=== PATIENT | female | born 1935 | race Caucasian/White ===

== ENCOUNTER 2017-10-10 12:56 | Day surgery (SDC) | payer MEDICARE, BC ==
[2017-10-10 13:30] VITALS: BP 148/77; PULSE 74; RESP 14; TEMP 97; O2SAT 95
[2017-10-10] MEDS ORDERED: LIDOCAINE HCL 1% 20 ML VIAL ONE (13:40)
[2017-10-10 14:25] VITALS: BP 174/91; PULSE 69; RESP 18; TEMP 97.8; O2SAT 97
[2017-10-10 14:40] VITALS: BP 156/93; PULSE 68; RESP 18; O2SAT 99
--- NOTE | 2017-10-10 14:56 | RADRPT ---
EXAM DATE/TIME: 10/10/2017 13:24 [place] COMPARISON: No previous studies available for comparison. EXTERNAL COMPARISON: [facility], PET CT Tumor, Sep 14 2017 INDICATIONS : Enlarged lymph node left supraclavicular. MEDICAL HISTORY : Ovarian cancer. PE. Hypertension. Hyperlipidemia. Neuropathy. Diverticulosis. SURGICAL HISTORY : Tonsillectomy. Knee surgery. Cataract. Infusa A Port placement. ENCOUNTER: Initial ACUITY: 1 month PAIN SCORE: 0/10 LOCATION: Left neck ORGAN: Left lymph node SPECIMENS: Four core specimen(s) submitted for pathologic evaluation. DEVICE: 18 gauge Temno needle Post procedure scanning reveals no hematoma or other complication. The possibility does exist that the tissue obtained will be non-diagnostic. If the sample is non-cammy gnostic a repeat biopsy or surgical biopsy may need to be performed. TECHNIQUE: 1. Ultrasound guidance for needle biopsy. 2. Needle biopsy. The risks, benefits and alternatives to the procedure were explained and verbal and written consent w as obtained. The site was prepped in sterile fashion. Full sterile technique was used, including ca p, mask, sterile gloves and gown and a large sterile sheet. Hand hygiene and 2% chlorhexidine and/or betadine/alcohol prep was utilized per protocol for cutaneous antisepsis. The skin and subcutaneous tissues were infiltrated with local anesthetic solution. Sterile gel and sterile probe cover were u tilized for ultrasound guidance. With the patient on the ultrasound table, images were obtained. A needle was advanced into the identified target and the number of specimens as above obtained and cardona bmitted for pathologic evaluation. The patient tolerated the procedure well and left the ultrasound suite in stable condition. CONCLUSION: Uncomplicated ultrasound guided needle biopsy. Dante Vail MD on October 10, 2017 at 14:53 Board Certified Radiologist. This report was verified electronically.
== END 2017-10-10 14:57 | disposition home or self-care (01) ==
LOC: HRAD 12:56
PROVIDERS: ATTEND Obstetrics & Gynecology Gynecologic Oncology
DX: R59.0 Localized enlarged lymph nodes (principal); C56.9 Malignant neoplasm of unspecified ovary; I10 Essential (primary) hypertension; E78.5 Hyperlipidemia, unspecified
CPT/HCPCS: 38505; 76942; 88305; 88341; 88342

== ENCOUNTER 2018-09-17 13:42 | Inpatient (IN) ==
[2018-09-17] MEDS ORDERED: Sod Chloride 0.9% Inj 1,000 ML IV.SIG ONE (14:11)
--- NOTE | 2018-09-17 14:15 | ED ---
HPI General Chief Complaint: Abdominal Pain Stated Complaint: vomitting/abd pain/headache Time Seen by Provider: 09/17/18 14:11 Source: patient and family Mode of arrival: ambulatory Limitations: no limitations History of Present Illness HPI narrative: 83-year-old female patient with history of uterine cancer status post hysterectomy, multiple rounds of chemotherapy, currently following with Dr. Stoner, presents to the ER today because she states that she has been having worsening of her abdominal pains which she rates at a 6 out of 10, has been nauseous, vomiting multiple times and not able to keep things down over several days. She had been seen last week for similar symptoms and had been given a fluid infusion and vitamin infusion at the chemotherapy center. In addition, she had visited [facility] ER and had a CAT scan done a week ago which shows that the cancer is within her entire abdominal cavity. Apparently, this is not significantly changed since July. Modifying Factors: None Associated Signs & Symptoms: Increased abdominal pain, vomiting Risk Factors: Uterine cancer with metastases within the abdomen Related Data Home Medications Medication Instructions Recorded Confirmed apixaban [Eliquis] 5 mg PO BID 09/17/18 09/17/18 gabapentin 600 mg PO QPM 09/17/18 09/17/18 metoprolol succinate 25 mg PO DAILY 09/17/18 09/17/18 ondansetron HCl [Zofran] 4 mg PO Q6-8H PRN 09/17/18 09/17/18 oxycodone-acetaminophen [Percocet] 1 tab PO Q4-6H PRN 09/17/18 09/17/18 sucralfate 1 g PO BID 09/17/18 09/17/18 Allergies Allergy/AdvReac Type Severity Reaction Status Date / Time erythromycin base Allergy Unknown Verified 10/10/17 14:53 Review of Systems ROS: all other systems reviewed are negative PMFSH History History Provided By: Patient Medical History Medical History H/O: hysterectomy (Acute) History of humerus fracture (Acute) Hypertension (Acute) Ovarian cancer (Acute) Social History Social History Substance History: No History of Abuse Second Hand Smoke Exposure: No Smoking Status: Never smoker How Often Do You Have a Drink Containing Alcohol: Never Recent Travel in [place] within the Last 8 Weeks: No Recent Out of Country Travel within the Last 8 Weeks: No Exam Narrative Exam Narrative: GENERAL: Well-developed elderly female patient currently in moderate distress. Awake and oriented x3. SKIN: Focused skin assessment warm/dry. HEAD: Atraumatic. Normocephalic. EYES: Pupils equal and round. No scleral icterus. No injection or drainage. ENT: No nasal bleeding or discharge. Mucous membranes pink and moist. NECK: Trachea midline. No JVD. CARDIOVASCULAR: Regular rate and rhythm. No murmur appreciated. RESPIRATORY: No accessory muscle use. Clear to auscultation. Breath sounds equal bilaterally. GASTROINTESTINAL: Abdomen soft, diffusely tender, mildly distended. Hepatic and splenic margins not palpable. MUSCULOSKELETAL: No obvious deformities. No clubbing. No cyanosis. No edema. NEUROLOGICAL: Awake and alert. No obvious cranial nerve deficits. Motor grossly within normal limits. Normal speech. PSYCHIATRIC: Appropriate mood and affect; insight and judgment normal. Course Initial Documented Vital Signs Temperature 97.9 F 09/17/18 13:56 Pulse Rate 111 H 09/17/18 13:56 Respiratory Rate 21 09/17/18 13:56 Blood Pressure 128/80 09/17/18 13:56 Pulse Oximetry 97 09/17/18 13:56 Last Documented Vital Signs Temperature 98.1 F 09/17/18 18:37 Pulse Rate 103 H 09/17/18 18:37 Respiratory Rate 22 09/17/18 18:37 Blood Pressure 169/81 H 09/17/18 18:37 Pulse Oximetry 99 09/17/18 18:37 Medical Decision Making MDM Narrative Medical decision making narrative: CAT scan reveals extensive seeding throughout the abdominal cavity of the cancer. Patient was given pain medications, multiple doses of nausea medications, is still experiencing significant discomfort and nausea, vomiting. At this point, case is discussed with Dr. Romero for admission for further treatment. Medical Screen Exam Complete: Yes Emergency Medical Condition: Yes Differential Diagnosis Differential Diagnosis: Acute on chronic abdominal pains versus dehydration versus opiate withdrawal versus obstruction Lab Data Lab results reviewed: Yes I reviewed the patient's lab results. Result diagrams: 09/17/18 14:25 09/17/18 14:25 Lab Results 09/17/18 09/17/18 Range/Units 14:25 14:25 WBC 6.8 (4.0-11.0) th/mm3 RBC 3.77 L (4.00-5.30) mil/mm3 Hgb 11.0 L (11.6-15.3) gm/dL Hct 33.0 L (35.0-46.0) % MCV 87.8 (80.0-100.0) fL MCH 29.3 (27.0-34.0) pg MCHC 33.4 (32.0-36.0) % RDW 13.5 (11.6-17.2) % Plt Count 365 (150-450) th/mm3 MPV 7.0 (7.0-11.0) fL Neut % (Auto) 83.0 H (16.0-70.0) % Lymph % (Auto) 10.3 (9.0-44.0) % [place] % (Auto) 5.5 (0.0-8.0) % Eos % (Auto) 0.5 (0.0-4.0) % Baso % (Auto) 0.7 (0.0-2.0) % Neut # (Auto) 5.6 (1.8-7.7) th/mm3 Lymph # (Auto) 0.7 L (1.0-4.8) th/mm3 [place] # (Auto) 0.4 (0.0-0.9) th/mm3 Eos # (Auto) 0.0 (0.0-0.4) th/mm3 Baso # (Auto) 0.0 (0.0-0.2) th/mm3 WBC Differential . Differential Comment Auto diff final Sodium 137 (136-145) meq/L Potassium 3.3 L (3.5-5.1) meq/L Chloride 101 (98-107) meq/L Carbon Dioxide 27.0 (21.0-32.0) meq/L Anion Gap 9 (5-15) meq/L BUN 15 (7-18) mg/dL Creatinine 0.82 (0.50-1.00) mg/dL Estimated GFR 67 L (>89) mL/min Random Glucose 101 (74-106) mg/dL Calcium 8.5 (8.5-10.1) mg/dL Magnesium 1.9 (1.5-2.5) mg/dL Total Bilirubin 0.5 (0.2-1.0) mg/dL AST 25 (15-37) U/L ALT 11 (10-53) U/L Alkaline Phosphatase 84 (45-117) U/L Total Protein 7.4 (6.4-8.2) g/dL Albumin 2.9 L (3.4-5.0) g/dL Lipase 74 (73-393) U/L Imaging Data Attestation: I personally reviewed and interpreted this imaging study as follows : Radiologist's impression: Abdomen/Pelvis CT 09/17/18 14:15 CONCLUSION: Since the patient's F-18 FDG PET/CT from 12/2017 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
[2018-09-17 14:56] LABS: Baso % (Auto) 0.7 % (0.0-2.0); Eos % (Auto) 0.5 % (0.0-4.0); Lymph # (Auto) 0.7 th/mm3 (1.0-4.8); Lymph % (Auto) 10.3 % (9.0-44.0); Mean Corpuscular HGB Conc 33.4 % (32.0-36.0); Mean Corpuscular Hemoglobin 29.3 pg (27.0-34.0); Mean Corpuscular Volume 87.8 fL (80.0-100.0); Mono # (Auto) 0.4 th/mm3 (0.0-0.9); Mono % (Auto) 5.5 % (0.0-8.0); Neut # (Auto) 5.6 th/mm3 (1.8-7.7); Platelet Count 365 th/mm3 (150-450); Red Blood Count 3.77 mil/mm3 (4.00-5.30); Red Cell Distribution Width 13.5 % (11.6-17.2); White Blood Count 6.8 th/mm3 (4.0-11.0)
[2018-09-17] MEDS ORDERED: Morphine Inj 4 MG/ML Vial IV.PUSH ONE (15:10)
[2018-09-17 15:13] LABS: Alanine Aminotransferase 11 U/L (10-53); Albumin 2.9 g/dL (3.4-5.0); Anion Gap 9 meq/L (5-15); Aspartate Aminotransferase 25 U/L (15-37); Blood Urea Nitrogen 15 mg/dL (7-18); Calcium 8.5 mg/dL (8.5-10.1); Chloride 101 meq/L (98-107); Glomerular Filtration Rate 67 mL/min (>89); Glucose,Random 101 mg/dL (74-106); Lipase 74 U/L (73-393); Magnesium 1.9 mg/dL (1.5-2.5); Potassium 3.3 meq/L (3.5-5.1); Sodium 137 meq/L (136-145)
[2018-09-17 15:14] LABS: Alkaline Phosphatase 84 U/L (45-117); Total Protein 7.4 g/dL (6.4-8.2)
--- NOTE | 2018-09-17 18:17 | CT ---
EXAM DATE: 09/17/2018 6:01 PM EST AGE/SEX: 83 years / Female INDICATIONS: Abdominal pain and nausea X 2 weeks; patient has been vomiting X 3 days post chemothera py. CLINICAL DATA: This is the patient's initial encounter. Patient reports that signs and symptoms have been present for 2 weeks and indicates a pain score of 6/10. MEDICAL/SURGICAL HISTORY: Carcinoma, ovarian. Hypertension. Hysterectomy. ORAL CONTRAST: No oral contrast ingested. RADIATION DOSE: 6.65 CTDI (mGy) COMPARISON: [facility], PET/CT TUMOR, 12/29/2017. . TECHNIQUE: Multiple contiguous axial images were obtained through the abdomen and pelvis following b olus infusion of 98 ml Omnipaque 350 (iohexol) nonionic water-soluble contrast as a single exam dos e. No oral contrast ingested. Using automated exposure control and adjustment of the mA and/or kV ac cording to patient size, radiation dose was kept as low as reasonably achievable to obtain optimal di agnostic quality images. DICOM format image data is available electronically for review and comparis on. FINDINGS: Abdomen CT: The spleen, pancreas, left kidney, adrenals are unremarkable. Subcentimeter exophytic cyst is present coming off the right lower pole kidney. There is no evidence for any appreciable pathological adenop athy, or bowel obstruction. There is a small left pleural effusion. There is moderate amount of asci elliott throughout the abdomen and pelvis and there is herniation to the anterior abdominal wall 2 separa te areas with loculated fluid the larger area measures 4.4 cm in size. There is slight dilatation of loops of small bowel left upper quadrant probable localized ileus maximum diameter of almost 3.8 cm. There are areas of omental caking scattered throughout the worst area left upper quadrant maximum cammy meter almost 4 cm in size characteristic of peritoneal carcinomatosis and there is enhancement of the peritoneal lining.. Approximate 1.1 cm cyst within the right hepatic lobe. Pelvic CT: There is no evidence for mass, abscess formation, or any significant adenopathy within the pelvis. C hronic degenerative change of bilateral symphysis pubi. CONCLUSION: Since the patient's F-18 FDG PET/CT from 12/2017 omental caking and peritoneal carcinomato sis have developed to a significant degree. Electronically signed by: Lilliana Rosas MD Board Certified Radiologist 09/17/2018 6:15 PM EST
[2018-09-17 19:02] LABS: Bacteria,Urine Rare /hpf; Bilirubin,Urine Negative (Negative); Clarity,Urine Hazy (Clear); Color,Urine Amber (Yellw/Straw); Glucose,Urine (UA) Negative (Negative); Hyaline Casts,Urine 10 /lpf (0-3); Leukocyte Esterase,Urine Large (Negative); Mucus,Urine Many /lpf (Occasional); Nitrite,Urine Negative (Negative); Renal Epithelial Cells,Urine <1 /hpf; Specific Gravity,Urine 1.026 (1.002-1.035); Squamous Epithelial Cell,Urine 5 /hpf (0-5); Transitional Epi Cells,Urine 1 /hpf
[2018-09-17] MEDS ORDERED: Bisacodyl 10 MG Supp RECTAL PRN (19:05)
[2018-09-17] MEDS ORDERED: Acetaminophen 325 MG Tablet PO PRN (19:05)
--- NOTE | 2018-09-17 20:14 | P.HPIM ---
History of Present Illness Primary Care Physician: Angelica Stoner MD History of Present Illness: This is an 83-year-old female with a PMH of Recurrent Ovarian CA who presented to the ER w/ complaints of abdominal pain, nausea and vomiting x2-3 days. Abdominal pain is generalized, severe, constant, 10/10, non-radiating, associated w/ several episodes of nausea/vomiting, unable to take PO due to symptoms. Follows w/ Dr. Stoner, states last chemo Sep 06, scheduled for another round in October. Denies fever, chills, diarrhea or sick contacts. On arrival, BP 128/80, HR 111, O2 sat 97% Afebrile. CBC essentially unremarkable. Chemistry unremarkable except for GFR 67. UA positive for UTI. 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 - Diagnosis (1) Ovarian ca (2) Intractable abdominal pain (3) UTI (urinary tract infection) Review of Systems PAST FAMILY HISTORY: Reviewed. No h/o DM or CAD All other systems reviewed negative except as stated in HPI PMFSH - History History Provided By: Patient - Medical History Medical History: Medical History (Last Updated 09/17/18 @ 14:19 by Apple López) H/O: hysterectomy History of humerus fracture Hypertension Ovarian cancer - Tobacco History Second Hand Smoke Exposure: No Smoking Status: Never smoker - Alcohol History How Often Do You Have a Drink Containing Alcohol: Never - Substance Use History Substance History: No History of Abuse - Travel History Recent Travel in the [place] Within the Last 8 Weeks: No Recent Travel Out of the Country Within the Last 8 Weeks: No - Immunization History Tetanus Immunization: <5 Years Medications and Allergies Active Medications: Active Medications Acetaminophen (Tylenol) 650 mg PO Q4H PRN PRN Reason: Temp > 100.4 Hydrocodone Bitart/Acetaminophen ([place] 10/325) 1 tab PO Q4H PRN PRN Reason: PAIN 3-5 Al Hydroxide/Mg Hydroxide (Milk Of Magnesia Liq) 30 ml PO Q12H PRN PRN Reason: Mild Constipation Bisacodyl (Dulcolax Supp) 10 mg RECTAL DAILY PRN PRN Reason: SEVERE CONSITIPATION Sodium Chloride (Ns Inj) 1,000 mls @ 100 mls/hr IV.CONT .Q10H GISSEL Lactulose (Lactulose Liq) 30 ml PO DAILY PRN PRN Reason: SEVERE CONSITIPATION Morphine Sulfate (Morphine Inj) 2 mg IV.PUSH Q4H PRN PRN Reason: PAIN 6-10 Ondansetron HCl (Zofran Inj) 4 mg IV.PUSH Q6H PRN PRN Reason: NAUSEA OR VOMITING Prochlorperazine Edisylate (Compazine Inj) 10 mg IV.PUSH Q6H PRN PRN Reason: NAUSEA/VOMITING Senna/Docusate Sodium (Yulissa-Colace) 1 tab PO BID GISSEL Sennosides (Senokot) 17.2 mg PO Q12H PRN PRN Reason: Moderate Constipation Sodium Chloride (Ns Flush) 2 ml IV.FLUSH PRN PRN PRN Reason: FLUSH AFTER USING IV ACCESS Sodium Chloride (Ns Flush) 2 ml IV.FLUSH BID GISSEL Sodium Chloride (Ns Flush) 2 ml IV.FLUSH PRN PRN PRN Reason: FLUSH AFTER USING IV ACCESS Allergies Allergy/AdvReac Type Severity Reaction Status Date / Time erythromycin base Allergy Unknown Verified 10/10/17 14:53 Home Medications Medication Instructions Recorded Confirmed Type apixaban [Eliquis] 5 mg PO BID 09/17/18 09/17/18 History gabapentin 600 mg PO QPM 09/17/18 09/17/18 History metoprolol succinate 25 mg PO DAILY 09/17/18 09/17/18 History ondansetron HCl [Zofran] 4 mg PO Q6-8H PRN 09/17/18 09/17/18 History oxycodone-acetaminophen [Percocet] 1 tab PO Q4-6H PRN 09/17/18 09/17/18 History sucralfate 1 g PO BID 09/17/18 09/17/18 History Exam Vital signs: Vital Signs 09/17/18 13:56 09/17/18 14:22 09/17/18 15:46 Temperature 97.9 F Pulse Rate 111 H 99 H Respiratory Rate 21 18 16 Blood Pressure 128/80 140/78 Pulse Oximetry 97 97 09/17/18 16:00 09/17/18 17:00 09/17/18 18:37 Temperature 97.7 F 97.9 F 98.1 F Pulse Rate 89 97 H 103 H Respiratory Rate 16 19 22 Blood Pressure 130/71 169/81 H Pulse Oximetry 98 98 99 Intake & Output 09/17/18 09/17/18 09/18/18 06:59 18:59 06:59 Intake Total 1000 / 1000 Balance 1000 / 1000 Weight 70.307 kg Intake: IV 1000 / 1000 NS Inj 1,000 ML @ Wide Open IV. 1000 / 1000 SIG BOLUS ONE Rx#:[id number] Narrative: PE: GENERAL: Pleasant elderly white female in moderate distress due to pain and nausea. SKIN: Focused skin assessment warm and dry. HEENT: PERRLA, EOMI. No scleral icterus or conjunctival pallor. No lid lag or facial droop. CARDIOVASCULAR: Regular rate and rhythm. No obvious murmurs to auscultation. No chest tenderness to palpation. RESPIRATORY: No obvious rhonchi or wheezing. Clear to auscultation. Breath sounds equal bilaterally. GASTROINTESTINAL: Abdomen soft, generalized tenderness to palpation, nondistended. BS normal. MUSCULOSKELETAL: Extremities without clubbing, cyanosis, or edema. No obvious deformities. NEUROLOGICAL: Awake, alert and oriented x4. No focal neurologic deficits. Moving both upper and lower extremities spontaneously. PSYCHIATRIC: Appropriate mood and affect. Insight and judgment normal. Results - Labs CBC & Chem 7: 09/17/18 14:25 09/17/18 14:25 Labs: Short CBC 09/17/18 Range/Units 14:25 WBC 6.8 (4.0-11.0) th/mm3 Hgb 11.0 L (11.6-15.3) gm/dL Hct 33.0 L (35.0-46.0) % Plt Count 365 (150-450) th/mm3 BMP 09/17/18 14:25 Sodium 137 Potassium 3.3 L Chloride 101 Carbon Dioxide 27.0 BUN 15 Creatinine 0.82 Calcium 8.5 Liver Function 09/17/18 Range/Units 14:25 Total Bilirubin 0.5 (0.2-1.0) mg/dL AST 25 (15-37) U/L ALT 11 (10-53) U/L Alkaline Phosphatase 84 (45-117) U/L Albumin 2.9 L (3.4-5.0) g/dL Urine 09/17/18 Range/Units 18:05 Urine Color Dona (Yellw/Straw) Urine Clarity Hazy H (Clear) Urine pH 5.0 (5.0-8.5) Ur Specific Center Line 1.026 (1.002-1.035) Urine Protein 100 H (Neg-Trace) mg/dL Urine Glucose (UA) Negative (Negative) mg/dL - Imaging Impressions Abdomen/Pelvis CT 09/17/18 14:15 CONCLUSION: Since the patient's F-18 FDG PET/CT from 12/2017 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 Caprini VTE Risk Assessment Caprini VTE Risk Assessment: No/Low Risk (score <= 1) Caprini Risk Assessment Model: Point Value = 1 Point Value = 2 Point Value = 3 Point Value = 5 Age 41-60 Minor surgery BMI > 25 kg/m2 Swollen legs Varicose veins or History of unexplained or recurrent spontaneous Oral contraceptives or hormone replacement Sepsis (< 1 month) Serious lung disease, including pneumonia (< 1 month) Abnormal pulmonary function Acute myocardial infarction Congestive heart failure (< 1 month) History of inflammatory bowel disease Medical patient at bed rest Age 61-74 Arthroscopic surgery Major open surgery (> 45 min) Laparoscopic surgery (> 45 min) Malignancy Confined to bed (> 72 hours) Immobilizing plaster cast Central venous access Age >= 75 History of VTE Family history of VTE Factor V Leiden Prothrombin [id number] Lupus anticoagulant Anticardiolipin antibodies Elevated serum homocysteine Heparin-induced thrombocytopenia Other congenital or acquired thrombophilia Stroke (< 1 month) Elective arthroplasty Hip, pelvis, or leg fracture Acute spinal cord injury (< 1 month) Prophylaxis Regimen: Total Risk Factor Score Risk Level Prophylaxis Regimen 0-1 Low Early ambulation 2 Moderate Order ONE of the following: *Sequential Compression Device (SCD) *Heparin 5000 units SQ BID 3-4 Higher Order ONE of the following medications: *Heparin 5000 units SQ TID *Enoxaparin/Lovenox 40 mg SQ daily (WT < 150 kg, CrCl > 30 mL/min) *Enoxaparin/Lovenox 30 mg SQ daily (WT < 150 kg, CrCl > 10-29 mL/min) *Enoxaparin/Lovenox 30 mg SQ BID (WT < 150 kg, CrCl > 30 mL/min) AND/OR *Sequential Compression Device (SCD) 5 or more Highest Order ONE of the following medications: *Heparin 5000 units SQ TID (Preferred with Epidurals) *Enoxaparin/Lovenox 40 mg SQ daily (WT < 150 kg, CrCl > 30 mL/min) *Enoxaparin/Lovenox 30 mg SQ daily (WT < 150 kg, CrCl > 10-29 mL/min) *Enoxaparin/Lovenox 30 mg SQ BID (WT < 150 kg, CrCl > 30 mL/min) AND *Sequential Compression Device (SCD) Assessment and Plan - Assessment (1) Ovarian ca Code(s): C56.9 - Malignant neoplasm of unspecified ovary Status: Acute (2) Intractable abdominal pain Code(s): R10.9 - Unspecified abdominal pain Status: Acute (3) UTI (urinary tract infection) Code(s): N39.0 - Urinary tract infection, site not specified Status: Acute - Plan A/P: 1. Ovarian CA: Stage IV. Recurrent. Following w/ Dr. Stoner, currently on chemo, CT Abd/Pelvis w/ extensive progression of disease w/ omental caking and peritoneal carcinomatosis, likely etiology for pt's severe pain at this time. Will consult Dr. Stoner in am for further eval/recommendations. 2. Intractable Abd Pain: w/ nausea/vomiting, s/p Morphine IV, Zofran/ Phenergan in ER, remains uncomfortable w/ ongoing nausea. Continue analgesics/ antiemetics. Diet as tolerated. 3. UTI: U/a w/ UTI, start Rocephin IV, follow up urine cultures, IVF for hydration, monitor I/O. 4. DVT Prophylaxis: SCD/Teds 5. Social work for d/c planning as needed 6. Case discussed w/ ER physician at length, labs/records/imaging reviewed by me
[2018-09-17] MEDS: Morphine Sulfate Inj 2 MG/ML Vial IV.PUSH PRN (21:00)
[2018-09-17] MEDS: Sod Chloride 0.9% Inj 1,000 ML IV.CONT SCH (21:51)
[2018-09-17] MEDS: Senna/Docusate Sodium 8.6/50 MG Tablet PO SCH (21:53)
[2018-09-18 05:41] LABS: Baso % (Auto) 0.4 % (0.0-2.0); Eos # (Auto) 0.1 th/mm3 (0.0-0.4); Eos % (Auto) 1.1 % (0.0-4.0); Hematocrit 30.5 % (35.0-46.0); Hemoglobin 10.1 gm/dL (11.6-15.3); Lymph # (Auto) 0.5 th/mm3 (1.0-4.8); Lymph % (Auto) 11.2 % (9.0-44.0); Mean Corpuscular HGB Conc 33.2 % (32.0-36.0); Mean Corpuscular Hemoglobin 29.2 pg (27.0-34.0); Mono # (Auto) 0.3 th/mm3 (0.0-0.9); Mono % (Auto) 6.6 % (0.0-8.0); Neut # (Auto) 3.7 th/mm3 (1.8-7.7); Neut % (Auto) 80.7 % (16.0-70.0); Platelet Count 327 th/mm3 (150-450); Red Blood Count 3.46 mil/mm3 (4.00-5.30); Red Cell Distribution Width 13.3 % (11.6-17.2); White Blood Count 4.6 th/mm3 (4.0-11.0)
[2018-09-18 06:04] LABS: Albumin 2.6 g/dL (3.4-5.0); Anion Gap 11 meq/L (5-15); Aspartate Aminotransferase 24 U/L (15-37); Blood Urea Nitrogen 15 mg/dL (7-18); Calcium 8.1 mg/dL (8.5-10.1); Carbon Dioxide 26.2 meq/L (21.0-32.0); Chloride 103 meq/L (98-107); Glomerular Filtration Rate 79 mL/min (>89); Glucose,Random 80 mg/dL (74-106); Potassium 3.2 meq/L (3.5-5.1); Sodium 140 meq/L (136-145)
[2018-09-18 06:09] LABS: Alanine Aminotransferase 9 U/L (10-53); Alkaline Phosphatase 76 U/L (45-117); Total Protein 6.9 g/dL (6.4-8.2)
[2018-09-18] MEDS: Sod Chloride 0.9% Inj 1,000 ML IV.CONT SCH ×2 (08:08→19:32)
--- NOTE | 2018-09-18 08:43 | P.CON ---
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 She is currently on Line 3 treatment s/p cycle 1 Doxil, she received on 09/07/18. She has been having c/o nausea and vomiting, reflux and abdominal pain since she started on Doxil. She was seen in our office last week after an ER visit at [facility], she was given IV hydration and antiemetics. 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 Conde describes most of her pain. She received IV hydration as out patient with Aloxi and we were scheduling a u/s to evaluation if patient would benefit from therapeutic paracentesis. She was also started on Sancuso patch to hopefully help with N/V. We provided her with a prescription of Percocet. Despite recent interventions she continued to have abdominal pain and nausea/vomiting. She presented to ER for evaluation. Imaging shown again, carcinomatosis with area disease to ULQ measuring aprox 4 cm. It did not shown bowel obstruction. Mrs. Conde was admitted for IV hydration, started on ABX for UTI and started on Morphine 2mg PRN for pain. Patient is seen now in consultation for the above findings. She reports she is still having nausea and vomiting..she describes as reflux. Her pain is controlled at this time. I again talked with her about treatment, as it is too soon to see if she is responding since she has only had one cycle. She also understands that the CT scan obtained at [place] is not a direct comparison of the CT she had in July in [place], she did have a delay in treatment d/t infected elbow that needed surgery. I explained we would consult U/S for therapeutic paracentesis, this may help relieve some of her discomfort. I will also start her on Carafate and PPI, she takes Nexium at home. If we can get her feeling better then she would like to continue with treatment. Palliative Care is consulted to help clarify goal and establish DNR/DNI. Review of Systems Constitutional: Reports fatigue, Reports weakness Gastrointestinal: Reports abdominal pain, Reports belching, Reports nausea, Reports vomiting PMFSH - History History Provided By: Patient - Medical History Medical History: Medical History (Last Updated 09/17/18 @ 14:19 by Apple López) H/O: hysterectomy History of humerus fracture Hypertension Ovarian cancer - Tobacco History Second Hand Smoke Exposure: No Tobacco Use In Past 30 Days: No Smoking Status: Never smoker - Alcohol History How Often Do You Have a Drink Containing Alcohol: Never - Substance Use History Substance History: No History of Abuse - Travel History Recent Travel in the [place] Within the Last 8 Weeks: No Recent Travel Out of the Country Within the Last 8 Weeks: No - Immunization History Tetanus Immunization: <5 Years Hx Influenza Vaccine This Season: Yes Medications and Allergies Active Medications: Active Medications Acetaminophen (Tylenol) 650 mg PO Q4H PRN PRN Reason: Temp > 100.4 Hydrocodone Bitart/Acetaminophen ([place] 10/325) 1 tab PO Q4H PRN PRN Reason: PAIN 3-5 Al Hydroxide/Mg Hydroxide (Milk Of Magnesia Liq) 30 ml PO Q12H PRN PRN Reason: Mild Constipation Apixaban (Eliquis) 5 mg PO BID [facility] Bisacodyl (Dulcolax Supp) 10 mg RECTAL DAILY PRN PRN Reason: SEVERE CONSITIPATION Sodium Chloride (Ns Inj) 1,000 mls @ 100 mls/hr IV.CONT .Q10H [facility] Last Admin: 09/18/18 08:08 Dose: 100 mls/hr Ceftriaxone Sodium 1,000 mg/ (Sodium Chloride) 100 mls @ 200 mls/hr IV.SIG Q24H [facility] Last Infusion: 09/17/18 23:44 Dose: Infused Lactulose (Lactulose Liq) 30 ml PO DAILY PRN PRN Reason: SEVERE CONSITIPATION Morphine Sulfate (Morphine Inj) 2 mg IV.PUSH Q4H PRN PRN Reason: PAIN 6-10 Last Admin: 09/17/18 21:00 Dose: 2 mg Ondansetron HCl (Zofran Inj) 4 mg IV.PUSH Q6H PRN PRN Reason: NAUSEA OR VOMITING Last Admin: 09/18/18 02:17 Dose: 4 mg Padimate O (Chapstick) 1 applicatio TOPICAL UNSCH PRN PRN Reason: CHAPPED LIPS Pantoprazole Sodium (Protonix Inj) 40 mg IV.PUSH Q24H [facility] Prochlorperazine Edisylate (Compazine Inj) 10 mg IV.PUSH Q6H PRN PRN Reason: NAUSEA/VOMITING Last Admin: 09/18/18 08:08 Dose: 10 mg Senna/Docusate Sodium (Yulissa-Colace) 1 tab PO BID [facility] Last Admin: 09/17/18 21:53 Dose: 1 tab Sennosides (Senokot) 17.2 mg PO Q12H PRN PRN Reason: Moderate Constipation Sodium Chloride (Ns Flush) 2 ml IV.FLUSH PRN PRN PRN Reason: FLUSH AFTER USING IV ACCESS Sodium Chloride (Ns Flush) 2 ml IV.FLUSH BID [facility] Last Admin: 09/18/18 08:00 Dose: Not Given Sodium Chloride (Ns Flush) 2 ml IV.FLUSH PRN PRN PRN Reason: FLUSH AFTER USING IV ACCESS Sucralfate (Carafate) 1 gm PO [facility] Allergies Allergy/AdvReac Type Severity Reaction Status Date / Time erythromycin base Allergy Unknown Verified 10/10/17 14:53 Home Medications Medication Instructions Recorded Confirmed Type apixaban [Eliquis] 5 mg PO BID 09/17/18 09/17/18 History gabapentin 600 mg PO QPM 09/17/18 09/17/18 History metoprolol succinate 25 mg PO DAILY 09/17/18 09/17/18 History ondansetron HCl [Zofran] 4 mg PO Q6-8H PRN 09/17/18 09/17/18 History oxycodone-acetaminophen [Percocet] 1 tab PO Q4-6H PRN 09/17/18 09/17/18 History sucralfate 1 g PO BID 09/17/18 09/17/18 History Physical Exam Vital signs: Vital Signs 09/17/18 13:56 09/17/18 14:22 09/17/18 15:46 Temperature 97.9 F Pulse Rate 111 H 99 H Respiratory Rate 21 18 16 Blood Pressure 128/80 140/78 Pulse Oximetry 97 97 09/17/18 16:00 09/17/18 17:00 09/17/18 18:37 Temperature 97.7 F 97.9 F 98.1 F Pulse Rate 89 97 H 103 H Respiratory Rate 16 19 22 Blood Pressure 130/71 169/81 H Pulse Oximetry 98 98 99 12/16/18 20:56 09/17/18 21:27 09/17/18 21:49 Temperature 97.9 F Pulse Rate 102 H 107 H Respiratory Rate 16 16 Blood Pressure 153/88 H Pulse Oximetry 95 09/17/18 23:05 09/18/18 00:06 09/18/18 03:26 Temperature 97.9 F 98.1 F Pulse Rate 98 H 97 H 106 H Respiratory Rate 16 18 Blood Pressure 119/82 141/89 H Pulse Oximetry 95 93 L 09/18/18 04:01 09/18/18 07:00 09/18/18 07:51 Temperature 98 F Pulse Rate 102 H 95 H 101 H Respiratory Rate 18 Blood Pressure 137/96 H Pulse Oximetry 97 Intake & Output 09/17/18 09/18/18 09/18/18 18:59 06:59 18:59 Intake Total 1000 / 1000 230 / 230 1000 / 1000 Output Total 175 / 175 Balance 1000 / 1000 55 / 55 1000 / 1000 Weight 70.307 kg 67.5 kg Intake: IV 1000 / 1000 110 / 110 1000 / 1000 NS Inj 1,000 ML @ 100 mls/hr IV 1000 / 1000 .CONT .Q10H [facility] Rx#:[id number] NS Inj 1,000 ML @ Wide Open IV. 1000 / 1000 SIG BOLUS ONE Rx#:[id number] Rocephin Inj 1,000 MG In NS Inj 110 / 110 100 ML @ 200 mls/hr IV.SIG Q24H [facility] Rx#:[id number] Oral 120 / 120 Output: Urine 175 / 175 Other: Date of Last Bowel Movement 09/17/18 09/16/18 # Bowel Movements 0 Weight On Admission 68.13 kg - Constitutional no acute distress - Routine HEENT Exam Head: Present: normocephalic, atraumatic Eye: Present: EOMI, PERRL, normal accommodation ENT: Present: mucous membranes dry - Routine Neck Exam Present: supple, full ROM - Routine Respiratory Exam Present: CTA bilaterally - Routine Cardiovascular Exam Present: RRR - Routine Abdominal Exam Present: tenderness, distended - Routine Extremities Exam Present: full ROM - Routine Skin Exam Present: intact - Routine Neurological Exam Present: alert, oriented X3 - Detailed Neurological Exam: Coma Scale Eye Opening: Spontaneous Verbal Response: Oriented - Routine Psychiatric Exam Present: normal affect Results - Labs CBC & Chem 7: 09/18/18 03:40 09/18/18 03:40 Labs: Laboratory Results - last 24 hr 09/17/18 09/17/18 09/17/18 14:25 14:25 18:05 WBC 6.8 RBC 3.77 L Hgb 11.0 L Hct 33.0 L MCV 87.8 MCH 29.3 MCHC 33.4 RDW 13.5 Plt Count 365 MPV 7.0 Neut % (Auto) 83.0 H Lymph % (Auto) 10.3 Sampson % (Auto) 5.5 Eos % (Auto) 0.5 Baso % (Auto) 0.7 Neut # (Auto) 5.6 Lymph # (Auto) 0.7 L Sampson # (Auto) 0.4 Eos # (Auto) 0.0 Baso # (Auto) 0.0 WBC Differential . Differential Comment Auto diff final Sodium 137 Potassium 3.3 L Chloride 101 Carbon Dioxide 27.0 Anion Gap 9 BUN 15 Creatinine 0.82 Estimated GFR 67 L Random Glucose 101 Calcium 8.5 Magnesium 1.9 Total Bilirubin 0.5 AST 25 ALT 11 Alkaline Phosphatase 84 Total Protein 7.4 Albumin 2.9 L Lipase 74 Urine Color Dona Urine Clarity Hazy H Urine pH 5.0 Ur Specific [place] 1.026 Urine Protein 100 H Urine Glucose (UA) Negative Urine Ketones 80 or greater H Urine Occult Blood Negative Urine Nitrate Negative Urine Bilirubin Negative Urine Urobilinogen 1.0 Ur Leukocyte Esterase Large H Urine RBC 3 Urine WBC 77 H Ur Squamous Epith Cells 5 Ur Transition Epith Cell 1 Ur Renal Epithelial Cell <1 Urine Bacteria Rare H Hyaline Casts 10 Urine Mucus Many H Micro UA Comment Culture indicated Ur Microscopic Review Not Reportable Urine Culture Comments Culture indicated 09/18/18 09/18/18 03:40 03:40 WBC 4.6 RBC 3.46 L Hgb 10.1 L Hct 30.5 L MCV 88.0 MCH 29.2 MCHC 33.2 RDW 13.3 Plt Count 327 MPV 7.0 Neut % (Auto) 80.7 H Lymph % (Auto) 11.2 Sampson % (Auto) 6.6 Eos % (Auto) 1.1 Baso % (Auto) 0.4 Neut # (Auto) 3.7 Lymph # (Auto) 0.5 L Sampson # (Auto) 0.3 Eos # (Auto) 0.1 Baso # (Auto) 0.0 WBC Differential . Differential Comment Auto diff final Sodium 140 Potassium 3.2 L Chloride 103 Carbon Dioxide 26.2 Anion Gap 11 BUN 15 Creatinine 0.71 Estimated GFR 79 L Random Glucose 80 Calcium 8.1 L Magnesium Total Bilirubin 0.3 AST 24 ALT 9 L Alkaline Phosphatase 76 Total Protein 6.9 Albumin 2.6 L Lipase Urine Color Urine Clarity Urine pH Ur Specific [place]opus Urine Protein Urine Glucose (UA) Urine Ketones Urine Occult Blood Urine Nitrate Urine Bilirubin Urine Urobilinogen Ur Leukocyte Esterase Urine RBC Urine WBC Ur Squamous Epith Cells Ur Transition Epith Cell Ur Renal Epithelial Cell Urine Bacteria Hyaline Casts Urine Mucus Micro UA Comment Ur Microscopic Review Urine Culture Comments - Imaging Impressions Abdomen/Pelvis CT 09/17/18 14:15 CONCLUSION: Since the patient's F-18 FDG PET/CT from 12/2017 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 Assessment and Plan - Assessment (1) Ovarian ca Code(s): C56.9 - Malignant neoplasm of unspecified ovary Status: Chronic Plan: Continue Line 3 Doxil as scheduled once discharged will schedule weekly IV hydration with antiemetic as outpt continue to monitor weekly labs as scheduled Palliative Care consulted to help with DNR/DNI and clarify goals, thank you for assistance. (2) UTI (urinary tract infection) Code(s): N39.0 - Urinary tract infection, site not specified Status: Acute Plan: IV Ceftriaxone urine culture pending IV hydration and supportive care (3) Intractable abdominal pain Code(s): R10.9 - Unspecified abdominal pain Status: Acute Plan: Percocet 10/325 PRN IV Morphine 2mg PRN supportive care (4) Nausea & vomiting Code(s): R11.2 - Nausea with vomiting, unspecified Status: Acute Plan: IV hydration started Protonix 40mg IV started Carafate 1 sofia before meals therapeutic paracentesis - Plan Discussed Condition With: patient, RN and Dr. Stoner - Attending Attestation Consult will be discussed with Dr. Stoner and any further orders will follow.
[2018-09-18 08:52] LABS: INR 1.1 Ratio; Prothrombin Time 11.3 sec (9.8-11.6)
[2018-09-18] MEDS: Sucralfate 1 GM Tablet PO SCH ×4 (09:12→21:48)
[2018-09-18] MEDS: Pantoprazole Inj 40 MG Vial IV.PUSH SCH (09:12)
[2018-09-18] MEDS: Senna/Docusate Sodium 8.6/50 MG Tablet PO SCH ×2 (09:13→20:52)
--- NOTE | 2018-09-18 13:10 | US ---
EXAM DATE: 09/18/2018 11:41 AM EST AGE/SEX: 83 years / Female INDICATIONS: Ascites. CLINICAL DATA: This is the patient's initial encounter. Patient reports that signs and symptoms have been present for 3 days and indicates a pain score of 3/10. MEDICAL/SURGICAL HISTORY: Carcinoma, ovarian. Hypertension. Humerus fracture. Hysterectomy. P ort placement. COMPARISON: [facility] [place] & PELVIS W CONTRAST, 09/17/2018. . FINDINGS: Masses: None Fluid Collections: A small amount of fluid is present, the largest pocket in the right upper abdomina l quadrant. Other: None. CONCLUSION: Small amount of ascites, most prominent in the right upper abdominal quadrant. Volume is probably shawna quate for diagnostic tap but insufficient for therapeutic aspiration. Electronically signed by: Dino Barnett MD Board Certified Radiologist 09/18/2018 1:08 PM EST
--- NOTE | 2018-09-18 13:18 | P.CONPAL ---
Consult Service: Palliative Care Requesting Physician: Paris Thompson Reason for Consult: a. To assist with evaluation and management of symptoms including: pain, nausea b. To assist medical decision maker(s) with: better understanding of current medical conditions; weighing benefits/burdens of medical treatment options; making medical treatment decisions. Primary Care Provider: Angelica Stoner MD History of Present Illness History of Present Illness: This is an 83 y/o female with recurrent ovarian cancer s/p hysterectomy and undergoing chemo who presented to the ER 09/17/18 for worsening LUQ abd pain and n/v. She is being treated currently for a UTI. She follows with Dr Stoner and is currently undergoing line 3 chemo; per oncology notes she had her 1st round doxorubicin 09/07/18. Prior she had some chemomtherapy with gemzar in [place] 01/2018 and subsequent treatments were delayed by severe left elbow bursitis requiring surgery. She is scheduled for another round doxorubicin next Oct. She had a recent hospitalization in [place] for similar symptoms as this admission and was treated for small bowel obstruciton. Imaging during her admisison in [place] also showed hernias. CT abd/pelvis done 09/17 during this admission shows omental caking and peritoneal carcinomatosis significantly developed as compared to PET 12/2017, no sign SBO. Per oncology note it is too soon to assess her response to treatment and they having her evaluated for a paracentesis. US today showed small amt ascites mostly in RUQ, probably adequate for diagnostic but not therapeutic paracentesis. On my eval pt is resting in bed, significant other Salvador at bedside. SHe has just finished vomiting dark green bilious material. "I tried to eat a popsicle. " Her n/v, distention, and abd pain started 1 month ago. Pain is worst in LUQ and RLQ and is intermittent. Heat helps somewhat. Currently she denies pain but is c/o heartburn type discomfort and nausea and vomiting. SHe has not had solid food in over a week and at this time is only tolerating sips liquids. Function/Cognitive Trajectory: Prior to admission was independent with ADLs. NO cognitive deficits reported. Has been having more pain, abd distention, n/v. Review of Systems Constitutional: Reports daytime sleepiness, Reports fatigue, Reports lack of energy, Reports weakness Eyes: Denies blind spots, Denies change in vision Ears, Nose, Mouth, and Throat: Denies abnormal hearing, Denies nosebleed Cardiovascular: Denies chest pain, Denies leg swelling Respiratory: Denies chest congestion, Denies shortness of breath Gastrointestinal: Reports abdominal pain, Reports bloating, Reports change in bowel habits, Reports heartburn, Reports nausea, Reports vomiting Musculoskeletal: Denies joint swelling, Denies muscle cramps Skin/Breast: Denies lesions, Denies rash, Denies yellowing of the skin Neurologic: Reports weakness, Denies abnormal movements, Denies seizure-like activity Psychiatric: Denies hopelessness, Denies seeing things others do not see Endocrine: Denies cold intolerance, Denies increased hunger Hematologic/Lymphatic: Denies easy bleeding Allergic/Immunologic: Denies hives PMFSH - History History Provided By: Patient (pt denies significant family medical hx) - Medical History Medical History: Medical History (Last Updated 09/17/18 @ 14:19 by Apple López) H/O: hysterectomy History of humerus fracture Hypertension Ovarian cancer - Tobacco History Second Hand Smoke Exposure: No Tobacco Use In Past 30 Days: No Smoking Status: Never smoker - Alcohol History How Often Do You Have a Drink Containing Alcohol: Never - Substance Use History Substance History: No History of Abuse - Travel History Recent Travel in the [place] Within the Last 8 Weeks: No Recent Travel Out of the Country Within the Last 8 Weeks: No - Immunization History Tetanus Immunization: <5 Years Hx Influenza Vaccine This Season: Yes Medications and Allergies Active Medications: Active Medications Acetaminophen (Tylenol) 650 mg PO Q4H PRN PRN Reason: Temp > 100.4 Hydrocodone Bitart/Acetaminophen ([place] 10/325) 1 tab PO Q4H PRN PRN Reason: PAIN 3-5 Al Hydroxide/Mg Hydroxide (Milk Of Magnesia Liq) 30 ml PO Q12H PRN PRN Reason: Mild Constipation Apixaban (Eliquis) 5 mg PO BID [facility] Last Admin: 09/18/18 08:42 Dose: Not Given Bisacodyl (Dulcolax Supp) 10 mg RECTAL DAILY PRN PRN Reason: SEVERE CONSITIPATION Sodium Chloride (Ns Inj) 1,000 mls @ 100 mls/hr IV.CONT .Q10H [facility] Last Admin: 09/18/18 08:08 Dose: 100 mls/hr Ceftriaxone Sodium 1,000 mg/ (Sodium Chloride) 100 mls @ 200 mls/hr IV.SIG Q24H [facility] Last Infusion: 09/17/18 23:44 Dose: Infused Lactulose (Lactulose Liq) 30 ml PO DAILY PRN PRN Reason: SEVERE CONSITIPATION Morphine Sulfate (Morphine Inj) 2 mg IV.PUSH Q4H PRN PRN Reason: PAIN 6-10 Last Admin: 09/17/18 21:00 Dose: 2 mg Ondansetron HCl (Zofran Inj) 4 mg IV.PUSH Q6H PRN PRN Reason: NAUSEA OR VOMITING Last Admin: 09/18/18 09:12 Dose: 4 mg Padimate O ([place]) 1 applicatio TOPICAL UNSCH PRN PRN Reason: CHAPPED LIPS Last Admin: 09/18/18 11:06 Dose: 1 applicatio Pantoprazole Sodium (Protonix Inj) 40 mg IV.PUSH Q24H [facility] Last Admin: 09/18/18 09:12 Dose: 40 mg Prochlorperazine Edisylate (Compazine Inj) 10 mg IV.PUSH Q6H PRN PRN Reason: NAUSEA/VOMITING Last Admin: 09/18/18 08:08 Dose: 10 mg Senna/Docusate Sodium (Yulissa-Colace) 1 tab PO BID [facility] Last Admin: 09/18/18 09:13 Dose: Not Given Sennosides (Senokot) 17.2 mg PO Q12H PRN PRN Reason: Moderate Constipation Sodium Chloride (Ns Flush) 2 ml IV.FLUSH PRN PRN PRN Reason: FLUSH AFTER USING IV ACCESS Sodium Chloride (Ns Flush) 2 ml IV.FLUSH BID [facility] Last Admin: 09/18/18 08:00 Dose: Not Given Sodium Chloride (Ns Flush) 2 ml IV.FLUSH PRN PRN PRN Reason: FLUSH AFTER USING IV ACCESS Sucralfate (Carafate) 1 gm PO ACHS [facility] Last Admin: 09/18/18 12:21 Dose: 1 gm Allergies Allergy/AdvReac Type Severity Reaction Status Date / Time erythromycin base Allergy Unknown Verified 10/10/17 14:53 Home Medications Medication Instructions Recorded Confirmed Type apixaban [Eliquis] 5 mg PO BID 09/17/18 09/17/18 History gabapentin 600 mg PO QPM 09/17/18 09/17/18 History metoprolol succinate 25 mg PO DAILY 09/17/18 09/17/18 History ondansetron HCl [Zofran] 4 mg PO Q6-8H PRN 09/17/18 09/17/18 History oxycodone-acetaminophen [Percocet] 1 tab PO Q4-6H PRN 09/17/18 09/17/18 History sucralfate 1 g PO BID 09/17/18 09/17/18 History Advance Directives Living Will: Yes (has at home but also completed one today 09/18/18) Health Care Surrogate Name and Number: Delia Guy [phone] Today's verbally stated goals: Aggressive short of no code Ethical and Legal Issues: Pt is capacitated to make decisions. In the event she is incapacitated she has designated her daughter Delia Guy as surrogate decision maker. Physical Exam Vital Signs: Vital Signs - 24 hr 09/17/18 13:56 09/17/18 14:22 09/17/18 15:46 Temperature 97.9 F Pulse Rate 111 H 99 H Respiratory Rate 21 18 16 Blood Pressure 128/80 140/78 Pulse Oximetry 97 97 09/17/18 16:00 09/17/18 17:00 09/17/18 18:37 Temperature 97.7 F 97.9 F 98.1 F Pulse Rate 89 97 H 103 H Respiratory Rate 16 19 22 Blood Pressure 130/71 169/81 H Pulse Oximetry 98 98 99 09/17/18 20:56 09/17/18 21:27 09/17/18 21:49 Temperature 97.9 F Pulse Rate 102 H 107 H Respiratory Rate 16 16 Blood Pressure 153/88 H Pulse Oximetry 95 09/17/18 23:05 09/18/18 00:06 09/18/18 03:26 Temperature 97.9 F 98.1 F Pulse Rate 98 H 97 H 106 H Respiratory Rate 16 18 Blood Pressure 119/82 141/89 H Pulse Oximetry 95 93 L 09/18/18 04:01 09/18/18 07:00 09/18/18 07:51 Temperature 98 F Pulse Rate 102 H 95 H 101 H Respiratory Rate 18 Blood Pressure 137/96 H Pulse Oximetry 97 09/18/18 11:03 09/18/18 11:27 Temperature Pulse Rate 95 H 92 H Respiratory Rate 18 Blood Pressure 132/67 Pulse Oximetry 95 I&O: Intake & Output 09/16/18 09/17/18 09/18/18 09/19/18 06:59 06:59 06:59 06:59 Intake Total 1230 / 1230 1000 / 1000 Output Total 175 / 175 Balance 1055 / 1055 1000 / 1000 Weight 67.5 kg Physical Exam: CONSTITUTIONAL/GENERAL: This is an adequately nourished patient, in no apparent distress. TUBES/LINES/DRAINS: PIV SKIN: Pale. No jaundice, rashes, or lesions. Ecchymoses on upper extremities. No wounds seen anteriorly. Skin temperature appropriate. Not diaphoretic. HEAD: Atraumatic. Normocephalic. EYES: Pupils equal and round and reactive. Extraocular motions intact. No scleral icterus. No injection or drainage. Fundi not examined. ENT: Hearing grossly normal. Nose without bleeding or purulent drainage. CARDIOVASCULAR: Tachy, regular rhythm without murmurs, gallops, or rubs. No JVD. Peripheral pulses symmetric. RESPIRATORY/CHEST: Symmetric, unlabored respirations. Clear to auscultation. Breath sounds equal bilaterally. No wheezes, rales, or rhonchi. GASTROINTESTINAL: Abdomen soft, distended, + ventral hernia, mild diffuse TTP. No hepato-splenomegaly, or palpable masses. No guarding. Bowel sounds present. GENITOURINARY: Without palpable bladder distension. MUSCULOSKELETAL: Extremities without clubbing, cyanosis, or edema. No joint tenderness or effusion noted. No calf tenderness. No mottling or clubbing. Left ankle > right ankle NEUROLOGICAL: Awake and alert. Motor and sensory grossly within normal limits. Follows commands. Cognitively sharp. Moves all extremities. PSYCHIATRIC: No obvious anxiety/depression. no apparent hallucinations or other psychotic thought process. Diagnostic Tests Laboratory: Laboratory Results - last 72 hr 09/17/18 09/17/18 09/17/18 14:25 14:25 18:05 WBC 6.8 RBC 3.77 L Hgb 11.0 L Hct 33.0 L MCV 87.8 MCH 29.3 MCHC 33.4 RDW 13.5 Plt Count 365 MPV 7.0 Neut % (Auto) 83.0 H Lymph % (Auto) 10.3 [place] % (Auto) 5.5 Eos % (Auto) 0.5 Baso % (Auto) 0.7 Neut # (Auto) 5.6 Lymph # (Auto) 0.7 L [place] # (Auto) 0.4 Eos # (Auto) 0.0 Baso # (Auto) 0.0 WBC Differential . Differential Comment Auto diff final PT INR Sodium 137 Potassium 3.3 L Chloride 101 Carbon Dioxide 27.0 Anion Gap 9 BUN 15 Creatinine 0.82 Estimated GFR 67 L Random Glucose 101 Calcium 8.5 Magnesium 1.9 Total Bilirubin 0.5 AST 25 ALT 11 Alkaline Phosphatase 84 Total Protein 7.4 Albumin 2.9 L Lipase 74 Urine Color Dona Urine Clarity Hazy H Urine pH 5.0 Ur Specific [place] 1.026 Urine Protein 100 H Urine Glucose (UA) Negative Urine Ketones 80 or greater H Urine Occult Blood Negative Urine Nitrate Negative Urine Bilirubin Negative Urine Urobilinogen 1.0 Ur Leukocyte Esterase Large H Urine RBC 3 Urine WBC 77 H Ur Squamous Epith Cells 5 Ur Transition Epith Cell 1 Ur Renal Epithelial Cell <1 Urine Bacteria Rare H Hyaline Casts 10 Urine Mucus Many H Micro UA Comment Culture indicated Ur Microscopic Review Not Reportable Urine Culture Comments Culture indicated 09/18/18 09/18/18 09/18/18 03:40 03:40 08:05 WBC 4.6 RBC 3.46 L Hgb 10.1 L Hct 30.5 L MCV 88.0 MCH 29.2 MCHC 33.2 RDW 13.3 Plt Count 327 MPV 7.0 Neut % (Auto) 80.7 H Lymph % (Auto) 11.2 [place] % (Auto) 6.6 Eos % (Auto) 1.1 Baso % (Auto) 0.4 Neut # (Auto) 3.7 Lymph # (Auto) 0.5 L [place] # (Auto) 0.3 Eos # (Auto) 0.1 Baso # (Auto) 0.0 WBC Differential . Differential Comment Auto diff final PT 11.3 INR 1.1 Sodium 140 Potassium 3.2 L Chloride 103 Carbon Dioxide 26.2 Anion Gap 11 BUN 15 Creatinine 0.71 Estimated GFR 79 L Random Glucose 80 Calcium 8.1 L Magnesium Total Bilirubin 0.3 AST 24 ALT 9 L Alkaline Phosphatase 76 Total Protein 6.9 Albumin 2.6 L Lipase Urine Color Urine Clarity Urine pH Ur Specific [place] Urine Protein Urine Glucose (UA) Urine Ketones Urine Occult Blood Urine Nitrate Urine Bilirubin Urine Urobilinogen Ur Leukocyte Esterase Urine RBC Urine WBC Ur Squamous Epith Cells Ur Transition Epith Cell Ur Renal Epithelial Cell Urine Bacteria Hyaline Casts Urine Mucus Micro UA Comment Ur Microscopic Review Urine Culture Comments Result Diagrams: 09/18/18 03:40 09/18/18 03:40 Microbiology: Microbiology 09/17/18 18:05 Urine Culture - Preliminary Clean Catch Urine Immature growth - reincubate Imaging: ITS Impressions Abdomen/Pelvis CT 09/17/18 14:15 CONCLUSION: Since the patient's F-18 FDG PET/CT from 12/2017 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 Abdomen Ultrasound 09/18/18 00:00 CONCLUSION: Small amount of ascites, most prominent in the right upper abdominal quadrant. Volume is probably adequate for diagnostic tap but insufficient for therapeutic aspiration. Patient/Family Conference Present at Family Conference: pt, significant other Salvador Family Conference Time: 35 Family Conference Location: Bedside Issues Discussed: * Palliative care role, purpose, approach * Additional medical, psychosocial, and spiritual history * Patients general health, functional status, and cognitive changes in the months leading up to the current hospitalization * Patient/family understanding of the current medical problems * Patient/family understanding of prognosis * Patients goals of care as best understood from advance directives and conversations - she has had conversations with family and filled out advanced directives * Current medical treatment options and benefits/burdens of those options * Likely scenarios comparing ongoing aggressive care with a transition to comfort measures only - she probably isn't candidate for PEG since she has ascites but she says she wouldn't want that anyways * decision maker - pt designated HCS as daughter Delia * Questions answered to the best of my ability * Palliative care contact information provided Pt has good insight. Goals aggressive short of no code/DNR. SHe completed a living will and is adamant that she would never want a feeding tube. She would like to continue to attempt palliative chemo if possible. 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 SHe and her significant other have been snowbirds for the last 18 years. She is . Has 4 children. 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 Spiritual: Taoism, receiving pastoral care. Legal: Pt currently capacitated to make healthcare decisions. In the event she becomes incapacitated she has designated her daughter Delia as her HCS. Ethical issues impacting care: none Important Contacts: HCS daughter Delia - [phone] Prognosis: 83 y/o female with recurrent ovarian ca just completed 1st round of line 3 treatment. She is having abd pain and n/v. Her current chemotherapy regimen is considered to be palliative in nature. Her chemotherapy previously was delayed after an elbow infections. It is likely she will continue to experience setbacks and decline. Given the extent of her malignancy, prognosis is poor and she is hospice appropriate should her goals be in line with comfort. Code Status: Full Code Plan: - LEGAL DECISION MAKER - Pt currently capacitated to make healthcare decisions. In the event she becomes incapacitated, she has designated her daughter Delia as her HCS - CODE STATUS- no code/dnr - GOALS - Pt has good insight. Goals aggressive short of no code/DNR. SHe completed a living will and is adamant that she would never want a feeding tube. She would like to continue to attempt palliative chemo if possible. SHe verbalizes understanding that her cancer is progressing and chemotherapy regimen is palliative and not curative, "I dont' know if I can bounce back from t his." - SYMPTOMS - = pain - abd pain, 2/2 malignancy vs hernias. has PRN norco, morphine. = n/v - likely multifactorial, unclear how much if this could be attributed to chemotherapy s/s vs malignancy vs ascites. She just had US to eval for paracentesis --> insufficient fluid for therapeutic tap. She has PRN zofran, compazine; ajay PPI and carafate. IF n/v persists with no relief, consider addition decadron or trial of haldol. - d/w laboratory technician/onc GREGORY Thompson - Palliative care will continue to follow during hospital course as condition evolves, to assist patient/decision-maker with understanding of medical conditions, weighing benefits/burdens of treatment options, for clarification of goals of treatment. Additionally will assist with any symptoms of palliative concern Appreciation Thank you for the opportunity to participate in the care of Aranza Conde. Attestation Attestation: To help prompt me to consider important information that might be impacting today's encounter and assessment, information from prior notes written by myself or my colleagues may have been "brought forward" into today's note. My signature on this note, however, is an attestation that I personally performed the exam, history, and/or decision-making noted today, and, unless otherwise indicated, the interactions with patient, family, and staff as well as the review of records all occurred today. I also attest that the listed assessment and stated plan reflect my best clinical judgment today based on the combination of historical information, prior notes, and today's exam/ interactions. When time spent is documented, it refers only to time spent today by the signer, or if indicated, combined time spent today by collaborating physician/nurse practitioner.
--- NOTE | 2018-09-18 13:56 | P.PN ---
Subjective Interval history: She denies any acute changes overnight except for the patient having 2 episodes of vomiting and a little burning with urination. Patient says her nausea is just slightly better since admission. She insists she is trying to see if she can use medical marijuana to control her nausea. Physical Exam Vital signs: Vital Signs 09/17/18 13:56 09/17/18 14:22 09/17/18 15:46 Temperature 97.9 F Pulse Rate 111 H 99 H Respiratory Rate 21 18 16 Blood Pressure 128/80 140/78 Pulse Oximetry 97 97 09/17/18 16:00 09/17/18 17:00 09/17/18 18:37 Temperature 97.7 F 97.9 F 98.1 F Pulse Rate 89 97 H 103 H Respiratory Rate 16 19 22 Blood Pressure 130/71 169/81 H Pulse Oximetry 98 98 99 09/17/18 20:56 09/17/18 21:27 09/17/18 21:49 Temperature 97.9 F Pulse Rate 102 H 107 H Respiratory Rate 16 16 Blood Pressure 153/88 H Pulse Oximetry 95 09/17/18 23:05 09/18/18 00:06 09/18/18 03:26 Temperature 97.9 F 98.1 F Pulse Rate 98 H 97 H 106 H Respiratory Rate 16 18 Blood Pressure 119/82 141/89 H Pulse Oximetry 95 93 L 09/18/18 04:01 09/18/18 07:00 09/18/18 07:51 Temperature 98 F Pulse Rate 102 H 95 H 101 H Respiratory Rate 18 Blood Pressure 137/96 H Pulse Oximetry 97 09/18/18 11:03 09/18/18 11:27 Temperature Pulse Rate 95 H 92 H Respiratory Rate 18 Blood Pressure 132/67 Pulse Oximetry 95 Intake & Output 09/17/18 09/18/18 09/18/18 18:59 06:59 18:59 Intake Total 1000 / 1000 230 / 230 1000 / 1000 Output Total 175 / 175 Balance 1000 / 1000 55 / 55 1000 / 1000 Weight 70.307 kg 67.5 kg Intake: IV 1000 / 1000 110 / 110 1000 / 1000 NS Inj 1,000 ML @ 100 mls/hr IV 1000 / 1000 .CONT .Q10H [facility] Rx#:[id number] NS Inj 1,000 ML @ Wide Open IV. 1000 / 1000 SIG BOLUS ONE Rx#:[id number] Rocephin Inj 1,000 MG In NS Inj 110 / 110 100 ML @ 200 mls/hr IV.SIG Q24H [facility] Rx#:[id number] Oral 120 / 120 Output: Urine 175 / 175 Other: Date of Last Bowel Movement 09/17/18 09/16/18 # Bowel Movements 0 Weight On Admission 68.13 kg Narrative: Abdomen soft, mildly tender to palpation diffusely, Clear lungs bilaterally, unlabored breathing Heart sounds regular rate and rhythm Awake and alert, no acute distress Results - Labs CBC & Chem 7: 09/18/18 03:40 09/18/18 03:40 Laboratory Results - last 24 hr 09/17/18 09/17/18 09/17/18 14:25 14:25 18:05 WBC 6.8 RBC 3.77 L Hgb 11.0 L Hct 33.0 L MCV 87.8 MCH 29.3 MCHC 33.4 RDW 13.5 Plt Count 365 MPV 7.0 Neut % (Auto) 83.0 H Lymph % (Auto) 10.3 [place] % (Auto) 5.5 Eos % (Auto) 0.5 Baso % (Auto) 0.7 Neut # (Auto) 5.6 Lymph # (Auto) 0.7 L [place] # (Auto) 0.4 Eos # (Auto) 0.0 Baso # (Auto) 0.0 WBC Differential . Differential Comment Auto diff final PT INR Sodium 137 Potassium 3.3 L Chloride 101 Carbon Dioxide 27.0 Anion Gap 9 BUN 15 Creatinine 0.82 Estimated GFR 67 L Random Glucose 101 Calcium 8.5 Magnesium 1.9 Total Bilirubin 0.5 AST 25 ALT 11 Alkaline Phosphatase 84 Total Protein 7.4 Albumin 2.9 L Lipase 74 Urine Color Dona Urine Clarity Hazy H Urine pH 5.0 Ur Specific [place] 1.026 Urine Protein 100 H Urine Glucose (UA) Negative Urine Ketones 80 or greater H Urine Occult Blood Negative Urine Nitrate Negative Urine Bilirubin Negative Urine Urobilinogen 1.0 Ur Leukocyte Esterase Large H Urine RBC 3 Urine WBC 77 H Ur Squamous Epith Cells 5 Ur Transition Epith Cell 1 Ur Renal Epithelial Cell <1 Urine Bacteria Rare H Hyaline Casts 10 Urine Mucus Many H Micro UA Comment Culture indicated Ur Microscopic Review Not Reportable Urine Culture Comments Culture indicated 09/18/18 09/18/18 09/18/18 03:40 03:40 08:05 WBC 4.6 RBC 3.46 L Hgb 10.1 L Hct 30.5 L MCV 88.0 MCH 29.2 MCHC 33.2 RDW 13.3 Plt Count 327 MPV 7.0 Neut % (Auto) 80.7 H Lymph % (Auto) 11.2 [place] % (Auto) 6.6 Eos % (Auto) 1.1 Baso % (Auto) 0.4 Neut # (Auto) 3.7 Lymph # (Auto) 0.5 L [place] # (Auto) 0.3 Eos # (Auto) 0.1 Baso # (Auto) 0.0 WBC Differential . Differential Comment Auto diff final PT 11.3 INR 1.1 Sodium 140 Potassium 3.2 L Chloride 103 Carbon Dioxide 26.2 Anion Gap 11 BUN 15 Creatinine 0.71 Estimated GFR 79 L Random Glucose 80 Calcium 8.1 L Magnesium Total Bilirubin 0.3 AST 24 ALT 9 L Alkaline Phosphatase 76 Total Protein 6.9 Albumin 2.6 L Lipase Urine Color Urine Clarity Urine pH Ur Specific [place] Urine Protein Urine Glucose (UA) Urine Ketones Urine Occult Blood Urine Nitrate Urine Bilirubin Urine Urobilinogen Ur Leukocyte Esterase Urine RBC Urine WBC Ur Squamous Epith Cells Ur Transition Epith Cell Ur Renal Epithelial Cell Urine Bacteria Hyaline Casts Urine Mucus Micro UA Comment Ur Microscopic Review Urine Culture Comments Microbiology 09/17/18 18:05 Clean Catch Urine Urine Culture - Preliminary Immature growth - reincubate - Imaging Impressions Abdomen/Pelvis CT 09/17/18 14:15 CONCLUSION: Since the patient's F-18 FDG PET/CT from 12/2017 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 Abdomen Ultrasound 09/18/18 00:00 CONCLUSION: Small amount of ascites, most prominent in the right upper abdominal quadrant. Volume is probably adequate for diagnostic tap but insufficient for therapeutic aspiration. Assessment and Plan - Assessment (1) Ovarian ca Code(s): C56.9 - Malignant neoplasm of unspecified ovary Status: Chronic (2) Intractable abdominal pain Code(s): R10.9 - Unspecified abdominal pain Status: Acute (3) UTI (urinary tract infection) Code(s): N39.0 - Urinary tract infection, site not specified Status: Acute - Plan 83-year-old white female being admitted for intractable nausea vomiting. Abdominal pain -secondary to below, tolerable, continue p.o. home narcotics Intractable N/V -we will try Zofran and Phenergan instead of Zofran and Compazine Ovarian CA -Stage IV. Recurrent. Following w/ Dr. Stoner, currently on chemo, CT Abd/ Pelvis w/ extensive progression of disease w/ omental caking and peritoneal carcinomatosis, likely etiology for pt's severe pain at this time. Appreciate Rigger Up/oncology input UTI: We will recheck due to the need for being condition, continue Rocephin
[2018-09-18 15:47] LABS: Bilirubin,Urine Negative (Negative); Clarity,Urine Hazy (Clear); Color,Urine Yellow (Yellw/Straw); Glucose,Urine (UA) Negative (Negative); Leukocyte Esterase,Urine Negative (Negative); Mucus,Urine Few /lpf (Occasional); Nitrite,Urine Negative (Negative); Specific Gravity,Urine 1.042 (1.002-1.035); Squamous Epithelial Cell,Urine <1 /hpf (0-5)
[2018-09-18] MEDS: DRONABINOL 2.5 MG CAPSULE PO SCH (17:02)
--- NOTE | 2018-09-18 17:23 | MB ---
cc: Angelica Stoner MD DATE: 09/18/2018 PHYSICIAN REQUESTING CONSULT: Victor Hugo Connors MD REASON FOR CONSULTATION: Recurrent ovarian cancer. REASON FOR HOSPITALIZATION: Nausea, vomiting, poor oral intake, dehydration, failure to thrive. She is seen. Her findings were reviewed. She is counseled by me and examined by me in conjunction with our nurse practitioner (ECTOR Negrete). I agree with her findings, assessment, and plan of care. HISTORY OF PRESENT ILLNESS: This delightful 83-year-old female is under our care with a known history of recurrent stage IV ovarian cancer. She spends part of her year with us in the [place] area and part of the year in her home state of [place]. She recently relocated back to [facility], where signs, symptoms, radiographic imaging, and physical exam all showed recurrence and progression of disease. She was counseled regarding options and agreed to start third line single-agent liposomal doxorubicin chemotherapy. She was given her first cycle of line 3 liposomal doxorubicin dose reduced on 09/07/2018 (post-chemotherapy day 11), and intermittently since that time, she has had difficulty keeping food or liquids down. She has brief reflux-type symptoms, frequent nausea, and some vomiting. However, it should be noted that this predated the liposomal doxorubicin as she was hospitalized in [place] a couple of weeks ago with signs and symptoms of partial small-bowel obstruction with similar symptoms so that many of her symptoms were thought related to the underlying disease and/or underlying medical conditions as well. She is admitted now for further evaluation and management. She reports some improvement in her symptoms with ongoing medications, hydration, and correction of electrolytes. She was reevaluated. OBJECTIVE FINDINGS: CAT scan shows moderate ascites. There are carcinomatous implants noted mostly in the abdomen. There are 2 hernias noted in the ventral abdominal wall. There is some dilation of the loops of small bowel suggestive of more likely an ileus in that there is no overt focal intestinal obstruction. Followup ultrasound to see if a therapeutic paracentesis would be helpful was interpreted as not having enough diffuse fluid to drain for symptomatic relief. Some of the fluid appeared loculated. ADDITIONAL LABORATORY DATA: Most recent labs, H and H 10.1 and 30.5, white count is 4.6. Renal function is preserved with a BUN and creatinine of 15 and 0.71, potassium low at 3.2. Transaminases are normal. Serum protein low with albumin of 2.6. Past medical history, surgical history, medications, family history, review of systems are all as outlined in the chart. They are reviewed. I did not delineate any new information other than what was already documented. REVIEW OF SYSTEMS: She has not been febrile. She has not noticed any bleeding from any site. She is still having intermittent bowel movements. PHYSICAL EXAMINATION: VITAL SIGNS: Temperature 99, pulse 92-104, respirations 16-18, blood pressure 132-142 over 67-96, O2 saturations greater than or equal to 95%. GENERAL: Despite feeling poorly, she is in her usual bright spirits and manages to laugh and make me laugh. I am sorry she is feeling poorly. She is chronically ill and feeling poorly, but in no acute distress. HEENT: Pupils are equal, round, and reactive to light. Her skin is warm, and conjunctivae are not pale. ABDOMEN: Distended but compressible. There are reducible hernias palpable in the midline. There is no rebound or guarding such that her abdomen is nonacute. LUNGS: There is some decreased air exchange at the lung bases. CARDIOVASCULAR: Rapid rate, regular rhythm. EXTREMITIES: Consistent with prior knee replacement surgeries. There is 1 plus edema with no palpable cords. Time was spent in discussion with her, reviewing the findings in her case today. I am sorry that she is feeling poorly. She has some questions regarding marijuana and/or derivatives thereof for treating nausea. I told her that we have the Marinol prescription available to help with nausea and help with appetite. We can try that as an inpatient. She has already identified a practitioner that may be able to help her with other marijuana-based products. She has other antinausea medications also started as well as H2 blockers to address what I think some of her symptoms are related to reflux. We will continue IV hydration. There is possibility of a urinary tract infection, and antibiotics were started with cultures pending. Philosophically, she wants to feel better and is still in favor of treatment for the underlying cancer if she can get to feeling better with more quality of life. It is too soon to tell whether the liposomal doxorubicin will prove to be effective, and as noted above, a number of her symptoms predated its use and are unlikely directly related, but chemotherapy may certainly have exacerbated these symptoms. We appreciate palliative care input as well. She would like to consider establishing a DO NOT RESUSCITATE and DO NOT INTUBATE order, and more questions were asked and answered. She expressed good understanding and hope she continues to improve. ASSESSMENT: 1. History of recurrent stage IV ovarian cancer. 2. Admitted with nausea, vomiting, decreased oral intake, failure to thrive. 3. Imaging consistent with recurrent disease, especially in the abdomen for carcinomatosis and ascites as well as ventral hernias and a pattern suggestive of an ileus. 4. Extensive discussion. PLAN: 1. I am grateful for the excellent medical care and input from palliative care. 2. Continue present management with IV fluid hydration, repletion of electrolytes, supportive care, antibiotics to cover possible urinary tract infection. 3. We will initiate Marinol. As was also discussed, that may help with her symptoms. 4. From an oncology standpoint, we will assess how she feels over the next couple of weeks to determine if her second cycle of liposomal doxorubicin can be considered on an outpatient basis. Thank you for the consultation. We will follow along in her care. MD TOM Miranda/christina , 03:59 PM , 04:17 PM
[2018-09-19] MEDS: Morphine Sulfate Inj 2 MG/ML Vial IV.PUSH PRN ×3 (00:48→22:02)
[2018-09-19] MEDS: Sod Chloride 0.9% Inj 1,000 ML IV.CONT SCH (05:18)
--- NOTE | 2018-09-19 07:46 | P.PN ---
Subjective Interval history: no new c/o, some rest last night, +/- nausea, emesis per nursing resting/snoring comfortably, not awakened on cursory exam Physical Exam Vital signs: Vital Signs 09/18/18 07:51 09/18/18 11:03 09/18/18 11:27 Temperature 98 F Pulse Rate 101 H 95 H 92 H Respiratory Rate 18 18 Blood Pressure 137/96 H 132/67 Pulse Oximetry 97 95 09/18/18 15:11 09/18/18 16:21 09/18/18 19:33 Temperature 99 F 99.4 F Pulse Rate 104 H 11 L 115 H Respiratory Rate 18 18 Blood Pressure 142/87 H 144/82 H Pulse Oximetry 96 96 09/18/18 19:52 09/18/18 20:00 09/18/18 23:57 Temperature Pulse Rate 100 H 102 H Respiratory Rate 6 L Blood Pressure Pulse Oximetry 09/19/18 00:09 09/19/18 04:01 09/19/18 04:55 Temperature 99 F 97.8 F Pulse Rate 103 H 91 H 84 Respiratory Rate 16 18 Blood Pressure 157/86 H 146/87 H Pulse Oximetry 94 L 95 Intake & Output 09/18/18 09/19/18 09/19/18 18:59 06:59 18:59 Intake Total 2820 / 2820 1230 / 1230 Output Total 675 / 675 Balance 2145 / 2145 1230 / 1230 Weight 70.7 kg Intake: IV 1999 1110 / 1110 NS Inj 1,000 ML @ 100 mls/hr IV 1999 1000 / 1000 .CONT .Q10H GISSEL Rx#:[id number] Rocephin Inj 1,000 MG In NS Inj 110 / 110 100 ML @ 200 mls/hr IV.SIG Q24H GISSEL Rx#:[id number] Oral 820 / 820 120 / 120 Output: Urine 200 / 200 Emesis 375 / 375 Urine Amount (Catheter) 100 / 100 Straight 100 / 100 Other: Date of Last Bowel Movement 09/16/18 09/16/18 # Emeses 7 - Constitutional no acute distress - Routine Abdominal Exam Present: soft, distended (mild distention with ascites, reducible hernias) - Routine Neurological Exam Present: alert (per nursing overnight, currently sleeping and appears very comfortable), oriented X3 - Routine Psychiatric Exam Present: normal affect (overnight) - Urinary Catheter Management Straight Cath placed during this visit: no Results - Labs CBC & Chem 7: 09/18/18 03:40 09/18/18 03:40 Laboratory Results - last 24 hr 09/18/18 09/18/18 08:05 15:30 PT 11.3 INR 1.1 Urine Color Yellow Urine Clarity Hazy H Urine pH 5.0 Ur Specific [place] 1.042 H Urine Protein 30 H Urine Glucose (UA) Negative Urine Ketones 80 or greater H Urine Occult Blood Negative Urine Nitrate Negative Urine Bilirubin Negative Urine Urobilinogen Less than 2 Ur Leukocyte Esterase Negative Urine RBC Less than 1 Urine WBC Less than 1 Ur Squamous Epith Cells <1 Urine Mucus Few H Ur Microscopic Review Not Reportable Microbiology 09/17/18 18:05 Clean Catch Urine Urine Culture - Preliminary Immature growth - reincubate - Imaging Impressions Abdomen Ultrasound 09/18/18 00:00 CONCLUSION: Small amount of ascites, most prominent in the right upper abdominal quadrant. Volume is probably adequate for diagnostic tap but insufficient for therapeutic aspiration. Assessment and Plan - Assessment (1) Ovarian ca Code(s): C56.9 - Malignant neoplasm of unspecified ovary Status: Chronic Plan: Continue Line 3 Doxil as scheduled once discharged will schedule weekly IV hydration with antiemetic as outpt continue to monitor weekly labs as scheduled Palliative Care consulted to help with DNR/DNI and clarify goals, thank you for assistance. (2) UTI (urinary tract infection) Code(s): N39.0 - Urinary tract infection, site not specified Status: Acute Plan: IV Ceftriaxone urine culture pending IV hydration and supportive care (3) Intractable abdominal pain Code(s): R10.9 - Unspecified abdominal pain Status: Acute Plan: Percocet 10/325 PRN IV Morphine 2mg PRN supportive care (4) Nausea & vomiting Code(s): R11.2 - Nausea with vomiting, unspecified Status: Acute Plan: IV hydration started Protonix 40mg IV started Carafate 1 sofia before meals therapeutic paracentesis - Plan HD #3, some subjective improvement in symptoms reported recurrent stage IV ovarian cancer recent initiation of L-3 C-1 liposomal doxorubicin cpm, supportive care
[2018-09-19] MEDS: Senna/Docusate Sodium 8.6/50 MG Tablet PO SCH ×2 (08:56→20:34)
[2018-09-19] MEDS: Pantoprazole Inj 40 MG Vial IV.PUSH SCH (08:56)
[2018-09-19] MEDS: Sucralfate 1 GM Tablet PO SCH ×2 (08:56→11:33)
--- NOTE | 2018-09-19 10:33 | P.PNIM ---
Subjective Interval history: Patient says that nausea and generalized abdominal pain, decreased appetite continues. Physical Exam Vital signs: Vital Signs 09/18/18 11:03 09/18/18 11:27 09/18/18 15:11 Temperature 99 F Pulse Rate 95 H 92 H 104 H Respiratory Rate 18 18 Blood Pressure 132/67 142/87 H Pulse Oximetry 95 96 09/18/18 16:21 09/18/18 19:33 09/18/18 19:52 Temperature 99.4 F Pulse Rate 11 L 115 H Respiratory Rate 18 6 L Blood Pressure 144/82 H Pulse Oximetry 96 09/18/18 20:00 09/18/18 23:57 09/19/18 00:09 Temperature 99 F Pulse Rate 100 H 102 H 103 H Respiratory Rate 16 Blood Pressure 157/86 H Pulse Oximetry 94 L 09/19/18 04:01 09/19/18 04:55 09/19/18 07:00 Temperature 97.8 F Pulse Rate 91 H 84 88 Respiratory Rate 18 Blood Pressure 146/87 H Pulse Oximetry 95 09/19/18 08:52 Temperature 98.7 F Pulse Rate 97 H Respiratory Rate 18 Blood Pressure 153/90 H Pulse Oximetry 97 Intake & Output 09/18/18 09/19/18 09/19/18 18:59 06:59 18:59 Intake Total 2820 / 2820 1230 / 1230 Output Total 675 / 675 Balance 2145 / 2145 1230 / 1230 Weight 70.7 kg Intake: IV 1999 1110 / 1110 NS Inj 1,000 ML @ 100 mls/hr IV 1999 1000 / 1000 .CONT .Q10H GISSEL Rx#:[id number] Rocephin Inj 1,000 MG In NS Inj 110 / 110 100 ML @ 200 mls/hr IV.SIG Q24H GISSEL Rx#:[id number] Oral 820 / 820 120 / 120 Output: Urine 200 / 200 Emesis 375 / 375 Urine Amount (Catheter) 100 / 100 Straight 100 / 100 Other: Date of Last Bowel Movement 09/16/18 09/16/18 09/16/18 # Emeses 7 Narrative: GENERAL: Patient sitting up in chair. Appears comfortable. Alert and oriented x3. SKIN: Warm and dry. HEAD: Normocephalic. EYES: No scleral icterus. No injection or drainage. NECK: Supple, trachea midline. No JVD. CARDIOVASCULAR: Regular rate and rhythm without murmurs, gallops, or rubs. RESPIRATORY: Breath sounds equal bilaterally. No accessory muscle use. GASTROINTESTINAL: Abdomen soft, non-tender, nondistended. MUSCULOSKELETAL: No cyanosis, trace edema bilaterally. BACK: Nontender without obvious deformity. No CVA tenderness. - Urinary Catheter Management Straight Cath placed during this visit: no Results - Labs CBC & Chem 7: 09/18/18 03:40 09/18/18 03:40 Laboratory Results - last 24 hr 09/18/18 15:30 Urine Color Yellow Urine Clarity Hazy H Urine pH 5.0 Ur Specific [place] 1.042 H Urine Protein 30 H Urine Glucose (UA) Negative Urine Ketones 80 or greater H Urine Occult Blood Negative Urine Nitrate Negative Urine Bilirubin Negative Urine Urobilinogen Less than 2 Ur Leukocyte Esterase Negative Urine RBC Less than 1 Urine WBC Less than 1 Ur Squamous Epith Cells <1 Urine Mucus Few H Ur Microscopic Review Not Reportable Microbiology 09/17/18 18:05 Clean Catch Urine Urine Culture - Preliminary Immature growth - reincubate - Imaging Impressions Abdomen Ultrasound 09/18/18 00:00 CONCLUSION: Small amount of ascites, most prominent in the right upper abdominal quadrant. Volume is probably adequate for diagnostic tap but insufficient for therapeutic aspiration. Assessment and Plan - Assessment (1) Ovarian ca Code(s): C56.9 - Malignant neoplasm of unspecified ovary Status: Chronic (2) Intractable abdominal pain Code(s): R10.9 - Unspecified abdominal pain Status: Acute (3) UTI (urinary tract infection) Code(s): N39.0 - Urinary tract infection, site not specified Status: Acute - Plan 83-year-old white female being admitted for intractable nausea vomiting. //Abdominal pain -secondary to below, tolerable, continue p.o. home narcotics //Intractable N/V -we will try Zofran and Phenergan instead of Zofran and Compazine = 09/19 continues on Marinol. Patient is ketotic as seen on urinalysis yesterday. Will start on D5 half-normal saline with potassium. //stage IV Ovarian CA - Recurrent. Following w/ Dr. Stoner, currently on chemo, CT Abd/Pelvis w/ extensive progression of disease w/ omental caking and peritoneal carcinomatosis , likely etiology for pt's severe pain at this time. = Continue management as per gynecology/oncology. //Hyperkalemia. Potassium 3.2 yesterday. Potassium to fluids. Recheck tomorrow. //UTI: -Follow-up urine culture. Discussed Condition With: Patient, nurse. Discharge Planning: pending medical assistant ob gyn/onc clearance. PT consult ordered and pending.
[2018-09-19] MEDS: DRONABINOL 2.5 MG CAPSULE PO SCH ×2 (11:33→15:32)
[2018-09-19] MEDS: Sucralfate Liq 1 GM/10 ML UDC PO SCH ×3 (12:44→20:32)
[2018-09-19] MEDS: DEXTROSE 5% IV.CONT SCH ×2 (12:56)
[2018-09-19] MEDS: POTASSIUM CHLORIDE IV.CONT SCH ×2 (12:56)
[2018-09-19] MEDS: WATER IV.CONT SCH ×2 (12:56)
[2018-09-20] MEDS: WATER IV.CONT SCH ×6 (00:26→20:43)
[2018-09-20] MEDS: POTASSIUM CHLORIDE IV.CONT SCH ×6 (00:26→20:43)
[2018-09-20] MEDS: DEXTROSE 5% IV.CONT SCH ×6 (00:26→20:43)
[2018-09-20] MEDS: Morphine Sulfate Inj 2 MG/ML Vial IV.PUSH PRN (01:57)
[2018-09-20] MEDS ORDERED: ChlorproMAZINE 25 MG Tablet PO ONE (04:01)
[2018-09-20 04:56] LABS: Baso % (Auto) 0.4 % (0.0-2.0); Eos # (Auto) 0.1 th/mm3 (0.0-0.4); Eos % (Auto) 2.1 % (0.0-4.0); Hematocrit 28.9 % (35.0-46.0); Hemoglobin 9.6 gm/dL (11.6-15.3); Lymph # (Auto) 0.5 th/mm3 (1.0-4.8); Lymph % (Auto) 10.4 % (9.0-44.0); Mean Corpuscular HGB Conc 33.1 % (32.0-36.0); Mean Corpuscular Hemoglobin 28.9 pg (27.0-34.0); Mean Corpuscular Volume 87.3 fL (80.0-100.0); Mean Platelet Volume 7.3 fL (7.0-11.0); Mono # (Auto) 0.3 th/mm3 (0.0-0.9); Mono % (Auto) 6.8 % (0.0-8.0); Neut % (Auto) 80.3 % (16.0-70.0); Platelet Count 310 th/mm3 (150-450); Red Blood Count 3.31 mil/mm3 (4.00-5.30)
[2018-09-20 05:21] LABS: Albumin 2.3 g/dL (3.4-5.0); Calcium 8.2 mg/dL (8.5-10.1); Carbon Dioxide 27.2 meq/L (21.0-32.0); Magnesium 1.6 mg/dL (1.5-2.5); Phosphorus 2.5 mg/dL (2.5-4.9); Potassium 3.4 meq/L (3.5-5.1)
[2018-09-20 05:24] LABS: Total Protein 6.1 g/dL (6.4-8.2)
--- NOTE | 2018-09-20 08:01 | P.PNONC ---
Subjective Interval history: patient up OOB to bathroom states continues having nausea + vomiting RN reports no vomiting overnight Objective Vital Signs/Intake & Output: Vital Signs 09/19/18 08:52 09/19/18 11:23 09/19/18 12:00 Temperature 98.7 F 98 F Pulse Rate 97 H 97 H 95 H Respiratory Rate 18 18 Blood Pressure 153/90 H 150/90 H Pulse Oximetry 97 95 09/19/18 15:00 09/19/18 15:30 09/19/18 20:01 Temperature 98.5 F Pulse Rate 103 H 100 H 96 H Respiratory Rate 18 Blood Pressure 146/93 H Pulse Oximetry 96 09/19/18 20:25 09/19/18 23:01 09/20/18 00:00 Temperature 99.3 F 98.4 F Pulse Rate 103 H 105 H 102 H Respiratory Rate 18 18 Blood Pressure 159/91 H 151/92 H Pulse Oximetry 96 94 L 09/20/18 03:07 09/20/18 03:55 Temperature 97.8 F Pulse Rate 99 H 95 H Respiratory Rate 20 Blood Pressure 154/96 H Pulse Oximetry 94 L Intake & Output 09/19/18 09/20/18 09/20/18 18:59 06:59 18:59 Intake Total 980 / 980 1290 / 1290 Output Total 525 / 525 800 / 800 Balance 455 / 455 490 / 490 Weight 70.5 kg Intake: IV 500 / 500 1110 / 1110 KCl Inj 30 MEQ In D5W Inj 1,000 1000 / 1000 ML @ 100 mls/hr IV.CONT . Q10H9M GISSEL Rx#:[id number] NS Inj 1,000 ML @ 100 mls/hr IV 500 / 500 .CONT .Q10H GISSEL Rx#:[id number] Rocephin Inj 1,000 MG In NS Inj 110 / 110 100 ML @ 200 mls/hr IV.SIG Q24H GISSEL Rx#:[id number] Oral 480 / 480 180 / 180 Output: Urine 350 / 350 700 / 700 Emesis 175 / 175 100 / 100 Other: Date of Last Bowel Movement 09/16/18 09/19/18 # Emeses 5 Result Diagrams: 09/20/18 03:30 09/20/18 03:30 Laboratory Results: Laboratory Results - last 24 hr 09/20/18 09/20/18 03:30 03:30 WBC 5.0 RBC 3.31 L Hgb 9.6 L Hct 28.9 L MCV 87.3 MCH 28.9 MCHC 33.1 RDW 13.0 Plt Count 310 MPV 7.3 Neut % (Auto) 80.3 H Lymph % (Auto) 10.4 [place]field % (Auto) 6.8 Eos % (Auto) 2.1 Baso % (Auto) 0.4 Neut # (Auto) 4.0 Lymph # (Auto) 0.5 L [place] # (Auto) 0.3 Eos # (Auto) 0.1 Baso # (Auto) 0.0 WBC Differential . Differential Comment Auto diff final Sodium 137 Potassium 3.4 L Chloride 103 Carbon Dioxide 27.2 Anion Gap 7 BUN 6 L Creatinine 0.64 Estimated GFR 89 Random Glucose 122 H Calcium 8.2 L Phosphorus 2.5 Magnesium 1.6 Total Bilirubin 0.2 Direct Bilirubin 0.1 Indirect Bilirubin 0.1 AST 19 ALT 9 L Alkaline Phosphatase 61 Total Protein 6.1 L D Albumin 2.3 L Culture Results: Microbiology 09/17/18 18:05 Urine Culture - Final Clean Catch Urine 50-100,000 cfu/mL mixed jennifer (probable contaminants) Medications: Active Medications Generic Name Dose Route Start Last Admin Trade Name Freq PRN Reason Stop Dose Admin Hydrocodone Bitart/Acetaminophen 1 tab 09/17/18 19:07 09/18/18 19:52 Erving 10/325 PO 1 tab Q4H PRN Administration PAIN 3-5 Apixaban 5 mg 09/18/18 09:00 09/19/18 22:08 Eliquis PO 5 mg BID GISSEL Administration Calcium Carbonate 1,000 mg 09/19/18 13:52 09/19/18 13:55 Tums Chew PO 1,000 mg Q6H PRN Administration HEARTBURN Dronabinol 2.5 mg 09/18/18 16:00 09/19/18 15:32 Marinol PO 2.5 mg BID@1100,1600 GISSEL Administration Ceftriaxone Sodium 1,000 mg/ 100 mls @ 200 mls/hr 09/17/18 22:00 09/19/18 22: 52 Sodium Chloride IV.SIG Infused Q24H GISSEL Infusion Potassium Chloride 30 meq/ 1,015 mls @ 100 mls/hr 09/19/18 12:00 09/20/18 00: 26 Dextrose IV.CONT 100 mls/hr .Q10H9M GISSEL Administration Morphine Sulfate 2 mg 09/17/18 19:06 09/20/18 01:57 Morphine Inj IV.PUSH 2 mg Q4H PRN Administration PAIN 6-10 Ondansetron HCl 4 mg 09/17/18 19:05 09/19/18 22:02 Zofran Inj IV.PUSH 4 mg Q6H PRN Administration NAUSEA OR VOMITING Padimate O 1 applicatio 09/18/18 07:58 09/18/18 11:06 Chapstick TOPICAL 1 applicatio UNSCH PRN Administration CHAPPED LIPS Pantoprazole Sodium 40 mg 09/18/18 08:00 09/19/18 08:56 Protonix Inj IV.PUSH 40 mg Q24H GISSEL Administration Promethazine HCl 25 mg 09/18/18 13:54 09/20/18 01:55 Phenergan Inj IM 25 mg Q8H PRN Administration BREAKTHROUGH NAUSEA Senna/Docusate Sodium 1 tab 09/17/18 21:00 09/19/18 20:34 Yulissa-Colace PO Not Given BID GISSEL Sodium Chloride 2 ml 09/17/18 21:00 09/19/18 20:34 Ns Flush IV.FLUSH Not Given BID GISSEL Sucralfate 1 gm 09/19/18 12:00 09/19/18 20:32 Carafate Liq PO 1 gm ACHS GISSEL Administration Objective Remarks: GENERAL: Well-nourished, well-developed patient. SKIN: Warm and dry. HEAD: Normocephalic. EYES: No scleral icterus. No injection or drainage. CARDIOVASCULAR: Regular rate and rhythm without murmurs. RESPIRATORY: Breath sounds equal bilaterally. No accessory muscle use. EXTREMITIES: No cyanosis, or edema. MUSCULOSKELETAL: Adequate muscle tone. NEUROLOGICAL: No obvious focal deficit. Awake, alert, and oriented x3. PSYCHIATRIC: Appropriate mood and affect; insight and judgment normal. Assessment/Plan (1) Ovarian ca Code(s): C56.9 - Malignant neoplasm of unspecified ovary Status: Chronic (2) UTI (urinary tract infection) Code(s): N39.0 - Urinary tract infection, site not specified Status: Acute (3) Intractable abdominal pain Code(s): R10.9 - Unspecified abdominal pain Status: Acute (4) Nausea & vomiting Code(s): R11.2 - Nausea with vomiting, unspecified Status: Acute - Plan tumor burden contributing to current symptoms of pain, nausea and vomiting Continue supportive care increase Marinol to 5 mg BID IV hydration antiemetics Palliative care following, PT DNR PT/OT will add Compazine 5mg Q 8 hours prn/ nausea and vomiting, in hopes to get better control over N/V patient wishes to continue with treatment once discharged, will continue with outpt labs and IV hydration.
[2018-09-20] MEDS: Pantoprazole Inj 40 MG Vial IV.PUSH SCH (08:12)
[2018-09-20] MEDS: Senna/Docusate Sodium 8.6/50 MG Tablet PO SCH ×2 (08:13→20:45)
[2018-09-20] MEDS: Sucralfate Liq 1 GM/10 ML UDC PO SCH ×4 (08:13→20:51)
--- NOTE | 2018-09-20 14:03 | P.PNPAL ---
Reason for Visit Reason for visit: a. To assist with evaluation and management of symptoms including: pain, nausea b. To assist medical decision maker(s) with: better understanding of current medical conditions; weighing benefits/burdens of medical treatment options; making medical treatment decisions. Subjective Subjective/Interval History: This is an 83 y/o female with recurrent ovarian cancer s/p hysterectomy and undergoing chemo who presented to the ER 09/17/18 for worsening LUQ abd pain and n/v. She is being treated currently for a UTI. She follows with Dr Stoner and is currently undergoing line 3 chemo; per oncology notes she had her 1st round doxorubicin 09/07/18. Prior she had some chemomtherapy with gemzar in [place] 01/2018 and subsequent treatments were delayed by severe left elbow bursitis requiring surgery. She is scheduled for another round doxorubicin next Oct. She had a recent hospitalization in [place] for similar symptoms as this admission and was treated for small bowel obstruciton. Imaging during her admisison in [place] also showed hernias. CT abd/pelvis done 09/17 during this admission shows omental caking and peritoneal carcinomatosis significantly developed as compared to PET 12/2017, no sign SBO. Per oncology note it is too soon to assess her response to treatment and they having her evaluated for a paracentesis. US today showed small amt ascites mostly in RUQ, probably adequate for diagnostic but not therapeutic paracentesis. Patient seen today for follow-up of symptom management of pain and nausea, as well as discussion of goals for medical treatment. Patient is retching on entrance to the room. She is holding her stomach complaining of both pain and nausea. She is also troubled by hiccups which have been present for the last 48 hours. Her pain is bilateral in the lower abdomen, sharp, stabbing, intermittent without exacerbating or relieving factors. She is continually nauseated. She has tried sitting up in a chair, sipping liquids, Phenergan, ondansetron and Compazine. Ondansetron appears to be the most effective of those 3, but still leaves her with continuous nausea. She vomited several times and during my visit, small amounts and states she "is miserable". . Advance Directives Health Care Surrogate Name and Number: Delia Guy [phone] Objective Vital Signs: Vital Signs 09/19/18 15:00 09/19/18 15:30 09/19/18 20:01 Temperature 98.5 F Pulse Rate 103 H 100 H 96 H Respiratory Rate 18 Blood Pressure 146/93 H Pulse Oximetry 96 09/19/18 20:25 09/19/18 23:01 09/20/18 00:00 Temperature 99.3 F 98.4 F Pulse Rate 103 H 105 H 102 H Respiratory Rate 18 18 Blood Pressure 159/91 H 151/92 H Pulse Oximetry 96 94 L 09/20/18 03:07 09/20/18 03:55 09/20/18 08:00 Temperature 97.8 F Pulse Rate 99 H 95 H 99 H Respiratory Rate 20 18 Blood Pressure 154/96 H 159/94 H Pulse Oximetry 94 L 95 09/20/18 12:00 Temperature 98.1 F Pulse Rate 111 H Respiratory Rate 20 Blood Pressure 150/91 H Pulse Oximetry 98 Intake & Output 09/19/18 09/20/18 09/20/18 18:59 06:59 18:59 Intake Total 980 / 980 1290 / 1290 1015 / 1015 Output Total 525 / 525 800 / 800 100 / 100 Balance 455 / 455 490 / 490 915 / 915 Weight 155 lb 6.814 oz Intake: IV 500 / 500 1110 / 1110 1015 / 1015 KCl Inj 30 MEQ In D5W Inj 1,000 1000 / 1000 1015 / 1015 ML @ 100 mls/hr IV.CONT . Q10H9M AJAY Rx#:[id number] NS Inj 1,000 ML @ 100 mls/hr IV 500 / 500 .CONT .Q10H AJAY Rx#:[id number] Rocephin Inj 1,000 MG In NS Inj 110 / 110 100 ML @ 200 mls/hr IV.SIG Q24H AJAY Rx#:[id number] Oral 480 / 480 180 / 180 Output: Urine 350 / 350 700 / 700 Emesis 175 / 175 100 / 100 100 / 100 Other: Date of Last Bowel Movement 09/16/18 09/19/18 09/19/18 # Emeses 5 2 Physical Exam: CONSTITUTIONAL/GENERAL: This is an adequately nourished patient, in no apparent distress. TUBES/LINES/DRAINS: Left subclavian port SKIN: Pale. No jaundice, rashes, or lesions. Ecchymoses on upper extremities. No wounds seen anteriorly. Skin temperature appropriate. Not diaphoretic. CARDIOVASCULAR: Mildly tachycardic, regular rhythm without murmurs, gallops, or rubs. No JVD. Peripheral pulses symmetric. RESPIRATORY/CHEST: Symmetric, unlabored respirations. Clear to auscultation. Breath sounds equal bilaterally. No wheezes, rales, or rhonchi. GASTROINTESTINAL: Abdomen soft, distended, + ventral hernia, mild diffuse TTP. No hepato-splenomegaly, or palpable masses. No guarding. Bowel sounds present. GENITOURINARY: Without palpable bladder distension. MUSCULOSKELETAL: Extremities without clubbing, cyanosis, or edema. No joint tenderness or effusion noted. No calf tenderness. No mottling or clubbing. Left ankle > right ankle NEUROLOGICAL: Awake and alert. Motor and sensory grossly within normal limits. Follows commands. Cognitively sharp. Moves all extremities. PSYCHIATRIC: Mild anxiety and depression regarding her symptoms which at this time are not managed. . Diagnostic Tests Laboratory: Laboratory Results - last 72 hr 09/17/18 09/17/18 09/17/18 14:25 14:25 18:05 WBC 6.8 RBC 3.77 L Hgb 11.0 L Hct 33.0 L MCV 87.8 MCH 29.3 MCHC 33.4 RDW 13.5 Plt Count 365 MPV 7.0 Neut % (Auto) 83.0 H Lymph % (Auto) 10.3 [place] % (Auto) 5.5 Eos % (Auto) 0.5 Baso % (Auto) 0.7 Neut # (Auto) 5.6 Lymph # (Auto) 0.7 L [place] # (Auto) 0.4 Eos # (Auto) 0.0 Baso # (Auto) 0.0 WBC Differential . Differential Comment Auto diff final PT INR Sodium 137 Potassium 3.3 L Chloride 101 Carbon Dioxide 27.0 Anion Gap 9 BUN 15 Creatinine 0.82 Estimated GFR 67 L Random Glucose 101 Calcium 8.5 Phosphorus Magnesium 1.9 Total Bilirubin 0.5 Direct Bilirubin Indirect Bilirubin AST 25 ALT 11 Alkaline Phosphatase 84 Total Protein 7.4 Albumin 2.9 L Lipase 74 Urine Color [place] Urine Clarity Hazy H Urine pH 5.0 Ur Specific [place] 1.026 Urine Protein 100 H Urine Glucose (UA) Negative Urine Ketones 80 or greater H Urine Occult Blood Negative Urine Nitrate Negative Urine Bilirubin Negative Urine Urobilinogen 1.0 Ur Leukocyte Esterase Large H Urine RBC 3 Urine WBC 77 H Ur Squamous Epith Cells 5 Ur Transition Epith Cell 1 Ur Renal Epithelial Cell <1 Urine Bacteria Rare H Hyaline Casts 10 Urine Mucus Many H Micro UA Comment Culture indicated Ur Microscopic Review Not Reportable Urine Culture Comments Culture indicated 09/18/18 09/18/18 09/18/18 03:40 03:40 08:05 WBC 4.6 RBC 3.46 L Hgb 10.1 L Hct 30.5 L MCV 88.0 MCH 29.2 MCHC 33.2 RDW 13.3 Plt Count 327 MPV 7.0 Neut % (Auto) 80.7 H Lymph % (Auto) 11.2 [place] % (Auto) 6.6 Eos % (Auto) 1.1 Baso % (Auto) 0.4 Neut # (Auto) 3.7 Lymph # (Auto) 0.5 L [place] # (Auto) 0.3 Eos # (Auto) 0.1 Baso # (Auto) 0.0 WBC Differential . Differential Comment Auto diff final PT 11.3 INR 1.1 Sodium 140 Potassium 3.2 L Chloride 103 Carbon Dioxide 26.2 Anion Gap 11 BUN 15 Creatinine 0.71 Estimated GFR 79 L Random Glucose 80 Calcium 8.1 L Phosphorus Magnesium Total Bilirubin 0.3 Direct Bilirubin Indirect Bilirubin AST 24 ALT 9 L Alkaline Phosphatase 76 Total Protein 6.9 Albumin 2.6 L Lipase Urine Color Urine Clarity Urine pH Ur Specific [place] Urine Protein Urine Glucose (UA) Urine Ketones Urine Occult Blood Urine Nitrate Urine Bilirubin Urine Urobilinogen Ur Leukocyte Esterase Urine RBC Urine WBC Ur Squamous Epith Cells Ur Transition Epith Cell Ur Renal Epithelial Cell Urine Bacteria Hyaline Casts Urine Mucus Micro UA Comment Ur Microscopic Review Urine Culture Comments 09/18/18 09/20/18 09/20/18 15:30 03:30 03:30 WBC 5.0 RBC 3.31 L Hgb 9.6 L Hct 28.9 L MCV 87.3 MCH 28.9 MCHC 33.1 RDW 13.0 Plt Count 310 MPV 7.3 Neut % (Auto) 80.3 H Lymph % (Auto) 10.4 [place] % (Auto) 6.8 Eos % (Auto) 2.1 Baso % (Auto) 0.4 Neut # (Auto) 4.0 Lymph # (Auto) 0.5 L [place] # (Auto) 0.3 Eos # (Auto) 0.1 Baso # (Auto) 0.0 WBC Differential . Differential Comment Auto diff final PT INR Sodium 137 Potassium 3.4 L Chloride 103 Carbon Dioxide 27.2 Anion Gap 7 BUN 6 L Creatinine 0.64 Estimated GFR 89 Random Glucose 122 H Calcium 8.2 L Phosphorus 2.5 Magnesium 1.6 Total Bilirubin 0.2 Direct Bilirubin 0.1 Indirect Bilirubin 0.1 AST 19 ALT 9 L Alkaline Phosphatase 61 Total Protein 6.1 L D Albumin 2.3 L Lipase Urine Color Yellow Urine Clarity Hazy H Urine pH 5.0 Ur Specific [place] 1.042 H Urine Protein 30 H Urine Glucose (UA) Negative Urine Ketones 80 or greater H Urine Occult Blood Negative Urine Nitrate Negative Urine Bilirubin Negative Urine Urobilinogen Less than 2 Ur Leukocyte Esterase Negative Urine RBC Less than 1 Urine WBC Less than 1 Ur Squamous Epith Cells <1 Ur Transition Epith Cell Ur Renal Epithelial Cell Urine Bacteria Hyaline Casts Urine Mucus Few H Micro UA Comment Ur Microscopic Review Not Reportable Urine Culture Comments Result Diagrams: 09/23/18 05:55 09/23/18 05:55 Microbiology: Microbiology 09/17/18 18:05 Urine Culture - Final Clean Catch Urine 50-100,000 cfu/mL mixed jennifer (probable contaminants) Imaging: ITS Impressions Abdomen/Pelvis CT 09/17/18 14:15 CONCLUSION: Since the patient's F-18 FDG PET/CT from 12/2017 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 Abdomen Ultrasound 09/18/18 00:00 CONCLUSION: Small amount of ascites, most prominent in the right upper abdominal quadrant. Volume is probably adequate for diagnostic tap but insufficient for therapeutic aspiration. Assessment and Plan Pertinent Non-Medical Issues: Psychosocial: Pt originally from [place]. SHe and her significant other have been snowbirds for the last 18 years. She is . Has 4 children. 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 Spiritual: [employer], receiving pastoral care. Legal: Pt currently capacitated to make healthcare decisions. In the event she becomes incapacitated she has designated her daughter Delia as her HCS. Ethical issues impacting care: none Important Contacts: HCS daughter Delia - [phone] Prognosis: 83 y/o female with recurrent ovarian ca just completed 1st round of line 3 treatment. She is having abd pain and n/v. Her current chemotherapy regimen is considered to be palliative in nature. Her chemotherapy previously was delayed after an elbow infections. It is likely she will continue to experience setbacks and decline. Given the extent of her malignancy, prognosis is poor and she is hospice appropriate should her goals be in line with comfort. Code Status: No Code DNR Plan: - LEGAL DECISION MAKER - Pt currently capacitated to make healthcare decisions. In the event she becomes incapacitated, she has designated her daughter Delia as her HCS - CODE STATUS- no code/dnr - GOALS - Pt has good insight. Goals aggressive short of no code/DNR. SHe completed a living will and is adamant that she would never want a feeding tube. She would like to continue to attempt palliative chemo if possible. SHe verbalizes understanding that her cancer is progressing and chemotherapy regimen is palliative and not curative, "I dont' know if I can bounce back from this." - SYMPTOMS - * pain - abd pain, 2/2 malignancy vs hernias. has PRN norco, morphine. Pain is intermittent and poorly controlled. She may benefit from low-dose extended relief morphine * n/v - likely multifactorial, unclear how much if this could be attributed to chemotherapy s/s vs malignancy vs ascites. She just had US to eval for paracentesis --> insufficient fluid for therapeutic tap. She has PRN zofran, compazine; ajay PPI and carafate. Nausea continues, unabated. As she is also troubled by hiccups, would recommend metoclopramide 5 mg IV every 6 hours times 48 hours then as needed and Ativan 0.5 mg every 6 hours as needed for nausea and hiccups management. - Palliative care will continue to follow during hospital course as condition evolves, to assist patient/decision-maker with understanding of medical conditions, weighing benefits/burdens of treatment options, for clarification of goals of treatment. Additionally will assist with any symptoms of palliative concern Attestation Collaborating MD Comments: . Attestation: To help prompt me to consider important information that might be impacting today's encounter and assessment, information from prior notes written by myself or my colleagues may have been "brought forward" into today's note. My signature on this note, however, is an attestation that I personally performed the exam, history, and/or decision-making noted today, and, unless otherwise indicated, the interactions with patient, family, and staff as well as the review of records all occurred today. I also attest that the listed assessment and stated plan reflect my best clinical judgment today based on the combination of historical information, prior notes, and today's exam/ interactions. When time spent is documented, it refers only to time spent today by the signer, or if indicated, combined time spent today by collaborating physician/nurse practitioner. .
[2018-09-20] MEDS ORDERED: LORazepam 0.5 MG Tablet PO PRN (15:43)
--- NOTE | 2018-09-20 15:44 | P.PNIM ---
Subjective Interval history: Patient continues to report nausea and vomiting with minimal p.o. intake. Physical Exam Vital signs: Vital Signs 09/19/18 20:01 09/19/18 20:25 09/19/18 23:01 Temperature 99.3 F Pulse Rate 96 H 103 H 105 H Respiratory Rate 18 Blood Pressure 159/91 H Pulse Oximetry 96 09/20/18 00:00 09/20/18 03:07 09/20/18 03:55 Temperature 98.4 F 97.8 F Pulse Rate 102 H 99 H 95 H Respiratory Rate 18 20 Blood Pressure 151/92 H 154/96 H Pulse Oximetry 94 L 94 L 09/20/18 08:00 09/20/18 12:00 Temperature 98.1 F Pulse Rate 99 H 100 H Respiratory Rate 18 20 Blood Pressure 159/94 H 150/91 H Pulse Oximetry 95 98 Intake & Output 09/19/18 09/20/18 09/20/18 18:59 06:59 18:59 Intake Total 980 / 980 1290 / 1290 1015 / 1015 Output Total 525 / 525 800 / 800 100 / 100 Balance 455 / 455 490 / 490 915 / 915 Weight 70.5 kg Intake: IV 500 / 500 1110 / 1110 1015 / 1015 KCl Inj 30 MEQ In D5W Inj 1,000 1000 / 1000 1015 / 1015 ML @ 100 mls/hr IV.CONT . Q10H9M GISSEL Rx#:[id number] NS Inj 1,000 ML @ 100 mls/hr IV 500 / 500 .CONT .Q10H GISSEL Rx#:[id number] Rocephin Inj 1,000 MG In NS Inj 110 / 110 100 ML @ 200 mls/hr IV.SIG Q24H GISSEL Rx#:[id number] Oral 480 / 480 180 / 180 Output: Urine 350 / 350 700 / 700 Emesis 175 / 175 100 / 100 100 / 100 Other: Date of Last Bowel Movement 09/16/18 09/19/18 09/19/18 # Emeses 5 2 Narrative: GENERAL: Patient sitting up in bed. Sleeping. Wakes up for exam. Appears comfortable. Alert and oriented x3. SKIN: Warm and dry. HEAD: Normocephalic. EYES: No scleral icterus. No injection or drainage. NECK: Supple, trachea midline. No JVD. CARDIOVASCULAR: Regular rate and rhythm without murmurs, gallops, or rubs. RESPIRATORY: Breath sounds equal bilaterally. No accessory muscle use. GASTROINTESTINAL: Abdomen soft, non-tender, nondistended. MUSCULOSKELETAL: No cyanosis, trace edema bilaterally. BACK: Nontender without obvious deformity. No CVA tenderness. - Urinary Catheter Management Straight Cath placed during this visit: no Results - Labs CBC & Chem 7: 09/20/18 03:30 09/20/18 03:30 Laboratory Results - last 24 hr 09/20/18 09/20/18 03:30 03:30 WBC 5.0 RBC 3.31 L Hgb 9.6 L Hct 28.9 L MCV 87.3 MCH 28.9 MCHC 33.1 RDW 13.0 Plt Count 310 MPV 7.3 Neut % (Auto) 80.3 H Lymph % (Auto) 10.4 [place] % (Auto) 6.8 Eos % (Auto) 2.1 Baso % (Auto) 0.4 Neut # (Auto) 4.0 Lymph # (Auto) 0.5 L [place] # (Auto) 0.3 Eos # (Auto) 0.1 Baso # (Auto) 0.0 WBC Differential . Differential Comment Auto diff final Sodium 137 Potassium 3.4 L Chloride 103 Carbon Dioxide 27.2 Anion Gap 7 BUN 6 L Creatinine 0.64 Estimated GFR 89 Random Glucose 122 H Calcium 8.2 L Phosphorus 2.5 Magnesium 1.6 Total Bilirubin 0.2 Direct Bilirubin 0.1 Indirect Bilirubin 0.1 AST 19 ALT 9 L Alkaline Phosphatase 61 Total Protein 6.1 L D Albumin 2.3 L Microbiology 09/17/18 18:05 Clean Catch Urine Urine Culture - Final 50-100,000 cfu/mL mixed jennifer (probable contaminants ) Assessment and Plan - Assessment (1) Ovarian ca Code(s): C56.9 - Malignant neoplasm of unspecified ovary Status: Chronic (2) Intractable abdominal pain Code(s): R10.9 - Unspecified abdominal pain Status: Acute (3) UTI (urinary tract infection) Code(s): N39.0 - Urinary tract infection, site not specified Status: Acute - Plan 83-year-old white female being admitted for intractable nausea vomiting. //Abdominal pain -secondary to below, tolerable, continue p.o. home narcotics //Intractable N/V -we will try Zofran and Phenergan instead of Zofran and Compazine = 09/19 continues on Marinol. Patient is ketotic as seen on urinalysis yesterday. Will start on D5 half-normal saline with potassium. = 09/20. I have discussed with oncology and oncology will be adding Reglan and Ativan. //stage IV Ovarian CA - Recurrent. Following w/ Dr. Stoner, currently on chemo, CT Abd/Pelvis w/ extensive progression of disease w/ omental caking and peritoneal carcinomatosis , likely etiology for pt's severe pain at this time. = Continue management as per gynecology/oncology. //Hyperkalemia. = Potassium 3.4. Improved. Continue IV fluids with potassium. //UTI: -Follow-up urine culture. Discharge Planning: Still with intractable nausea vomiting. pending reel winder/onc clearance. PT recommends home with home health
--- NOTE | 2018-09-20 15:45 | P.DCO ---
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 My clinical findings support the need for the requested home health care services because: Limited ability to care for self I certify that my clinical findings support that this patient is homebound because: Unsafe to leave home unassisted
[2018-09-20] MEDS: Gabapentin 300 MG Capsule PO SCH (17:58)
--- NOTE | 2018-09-21 05:29 | XR ---
EXAM DATE: 09/21/2018 5:21 AM EST AGE/SEX: 83 years / Female INDICATIONS: Shortness of breath, difficulty breathing. CLINICAL DATA: This is the patient's initial encounter. Patient reports that signs and symptoms have been present for 1 day and indicates a pain score of Nonresponsive. MEDICAL/SURGICAL HISTORY: . Carcinoma, ovarian. Hypertension. Humerus fracture. . Hysterectomy . Port placement. COMPARISON: No prior exams available for comparison. FINDINGS: [id number] catheter tip projects over the mid superior vena cava. There are patchy areas of infilt rate in the medial left lower lung causing loss of delineation of the medial left hemidiaphragm and t here is indistinctness of the central bronchopulmonary markings bilaterally. No peripheral infiltrate s in either lung. The heart is within normal limits. CONCLUSION: Bilateral perihilar infiltrates and partially consolidative infiltrate in the left lower lobe. Electronically signed by: Capo Wahl MD Board Certified Radiologist 09/21/2018 5:28 AM EST
[2018-09-21 05:44] LABS: ABG Base Excess 0.9 mmol/L (-2-2); ABG PCO2 34 mmHg (38-42); ABG PO2 49 mmHG (61-120)
[2018-09-21] MEDS: WATER IV.CONT SCH ×4 (05:49→14:26)
[2018-09-21] MEDS: DEXTROSE 5% IV.CONT SCH ×4 (05:49→14:26)
[2018-09-21] MEDS: POTASSIUM CHLORIDE IV.CONT SCH ×4 (05:49→14:26)
[2018-09-21] MEDS ORDERED: MethylPREDNISolone Sod Succinate Inj 125 MG/2 ML Vial IV.PUSH ONE (06:26)
[2018-09-21] MEDS ORDERED: Ampicillin/Sulbactam Inj 3 GM in Sodium Chloride 0.9% Inj 100 ML IV.SIG SCH (07:00)
[2018-09-21 07:12] LABS: Baso % (Auto) 0.3 % (0.0-2.0); Eos % (Auto) 0.1 % (0.0-4.0); Hematocrit 35.6 % (35.0-46.0); Hemoglobin 12.2 gm/dL (11.6-15.3); Lymph # (Auto) 0.3 th/mm3 (1.0-4.8); Lymph % (Auto) 4.1 % (9.0-44.0); Mean Corpuscular HGB Conc 34.4 % (32.0-36.0); Mean Corpuscular Hemoglobin 29.7 pg (27.0-34.0); Mean Corpuscular Volume 86.3 fL (80.0-100.0); Mean Platelet Volume 6.5 fL (7.0-11.0); Mono # (Auto) 0.3 th/mm3 (0.0-0.9); Mono % (Auto) 3.6 % (0.0-8.0); Neut # (Auto) 6.9 th/mm3 (1.8-7.7); Neut % (Auto) 91.9 % (16.0-70.0); Platelet Count 388 th/mm3 (150-450); Red Blood Count 4.12 mil/mm3 (4.00-5.30); White Blood Count 7.5 th/mm3 (4.0-11.0)
[2018-09-21 07:16] LABS: Albumin 2.5 g/dL (3.4-5.0); Calcium 8.4 mg/dL (8.5-10.1); Carbon Dioxide 26.6 meq/L (21.0-32.0); Magnesium 1.8 mg/dL (1.5-2.5); Phosphorus 2.3 mg/dL (2.5-4.9); Potassium 3.8 meq/L (3.5-5.1)
[2018-09-21] MEDS ORDERED: Sod Chloride 0.9% Inj 1,000 ML IV.SIG SCH (08:15)
[2018-09-21] MEDS ORDERED: Piperacil/Tazo 4.5 GM Premix 4.5 GM/100 ML BAG IV.SIG SCH (08:15)
[2018-09-21] MEDS ORDERED: Vancomycin Consult Pharmacy OTHER PRN (08:17)
--- NOTE | 2018-09-21 08:26 | P.PNIM ---
Subjective Interval history: Discussed with nursing. Patient had episode of emesis around 6 AM with subsequent shortness of breath. NG tube was placed currently with 250 mL's out. Patient is on high flow nonrebreather. She is oriented x3. She reports feeling generally tired. She endorses shortness of breath, however denies any chest pain. Physical Exam Vital signs: Vital Signs 09/20/18 12:00 09/20/18 16:00 09/20/18 20:00 Temperature 98.1 F 97.9 F 98.4 F Pulse Rate 100 H 104 H 110 H Respiratory Rate 20 15 16 Blood Pressure 150/91 H 156/91 H 156/94 H Pulse Oximetry 98 97 98 09/21/18 00:00 09/21/18 04:00 09/21/18 04:25 Temperature 98.1 F 97.6 F Pulse Rate 105 H 116 H 122 H Respiratory Rate 16 22 Blood Pressure 157/98 H 144/85 H Pulse Oximetry 87 L 09/21/18 05:25 09/21/18 07:49 Temperature 99.4 F Pulse Rate 135 H 152 H Respiratory Rate 40 H 39 H Blood Pressure 117/72 Pulse Oximetry 98 Intake & Output 09/20/18 09/21/18 09/21/18 18:59 06:59 18:59 Intake Total 1015 / 1015 1355 / 1355 Output Total 500 / 500 900 / 900 Balance 515 / 515 455 / 455 Weight 70 kg Intake: IV 1015 / 1015 1115 / 1115 KCl Inj 30 MEQ In D5W Inj 1,000 1015 / 1015 1015 / 1015 ML @ 100 mls/hr IV.CONT . Q10H9M [facility] Rx#:[id number] Rocephin Inj 1,000 MG In NS Inj 100 / 100 100 ML @ 200 mls/hr IV.SIG Q24H [facility] Rx#:[id number] Oral 240 / 240 Output: Urine 400 / 400 900 / 900 Emesis 100 / 100 Other: Date of Last Bowel Movement 09/19/18 # Emeses 2 Narrative: GENERAL: Patient sitting up in bed. Awake. Appears short of breath. oriented x3. SKIN: Warm and dry. HEAD: Normocephalic. EYES: No scleral icterus. No injection or drainage. NECK: Supple, trachea midline. No JVD. CARDIOVASCULAR: Regular rate and rhythm without murmurs, gallops, or rubs. RESPIRATORY: Breath sounds with crackles bilaterally. No accessory muscle use. GASTROINTESTINAL: Abdomen soft, non-tender, nondistended. MUSCULOSKELETAL: No cyanosis, trace edema bilaterally. BACK: Nontender without obvious deformity. No CVA tenderness. - Urinary Catheter Management Straight Cath placed during this visit: no Results - Labs CBC & Chem 7: 09/21/18 06:47 09/21/18 04:35 Laboratory Results - last 24 hr 09/21/18 09/21/18 09/21/18 04:35 05:35 06:41 WBC RBC Hgb Hct MCV MCH MCHC RDW Plt Count MPV Neut % (Auto) Lymph % (Auto) [place] % (Auto) Eos % (Auto) Baso % (Auto) Neut # (Auto) Lymph # (Auto) [place] # (Auto) Eos # (Auto) Baso # (Auto) WBC Differential Differential Comment D-Dimer Quant (PE/DVT) Puncture Site Right radial Patient Temperature 98.6 O2 Saturation 83 L* ABG pH 7.46 H ABG pCO2 34 L ABG pO2 49 L* ABG HCO3 24 ABG O2 Content 18.8 ABG Base Excess 0.9 ABG Methemoglobin 1.4 Demetrius Test Present Hemoglobin 16.3 H Carboxyhemoglobin 0.9 O2 Delivery Device simple mask Liter Flow 10.00 Critical Value Yes Sodium 136 Potassium 3.8 Chloride 102 Carbon Dioxide 26.6 Anion Gap 7 BUN 4 L Creatinine 0.71 Estimated GFR 79 L Random Glucose 138 H Lactic Acid 2.0 Calcium 8.4 L Phosphorus 2.3 L Magnesium 1.8 Albumin 2.5 L 09/21/18 09/21/18 06:47 06:47 WBC 7.5 RBC 4.12 Hgb 12.2 D Hct 35.6 MCV 86.3 MCH 29.7 MCHC 34.4 RDW 13.0 Plt Count 388 MPV 6.5 L Neut % (Auto) 91.9 H Lymph % (Auto) 4.1 L [place] % (Auto) 3.6 Eos % (Auto) 0.1 Baso % (Auto) 0.3 Neut # (Auto) 6.9 Lymph # (Auto) 0.3 L [place] # (Auto) 0.3 Eos # (Auto) 0.0 Baso # (Auto) 0.0 WBC Differential . Differential Comment Auto diff final D-Dimer Quant (PE/DVT) 4.19 H Puncture Site Patient Temperature O2 Saturation ABG pH ABG pCO2 ABG pO2 ABG HCO3 ABG O2 Content ABG Base Excess ABG Methemoglobin Demetrius Test Hemoglobin Carboxyhemoglobin O2 Delivery Device Liter Flow Critical Value Sodium Potassium Chloride Carbon Dioxide Anion Gap BUN Creatinine Estimated GFR Random Glucose Lactic Acid Calcium Phosphorus Magnesium Albumin - Imaging Impressions Chest X-Ray 09/21/18 05:05 CONCLUSION: Bilateral perihilar infiltrates and partially consolidative infiltrate in the left lower lobe. 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 //Abdominal pain -secondary to below, tolerable, continue p.o. home narcotics //Intractable N/V -we will try Zofran and Phenergan instead of Zofran and Compazine = 09/19 continues on Marinol. Patient is ketotic as seen on urinalysis yesterday. Will start on D5 half-normal saline with potassium. = 09/20. I have discussed with oncology and oncology will be adding Reglan and Ativan. //Sepsis //Suspected aspiration pneumonia //Hypoxemic respiratory failure = Tachypnea, tachycardia, aspiration pneumonia 09/21 with episode of vomiting, suspected aspiration. Shortness of breath. Chest x-ray with bilateral perihilar infiltrates, partially consolidative infiltrate in the left lower lobe personally visualized -Patient reported to have bowel movement overnight. Start on Zosyn for coverage of anaerobes, vancomycin for gram-positive coverage. Oxygen as needed. Duo nebs. D-dimer is elevated at 4.19, however patient is already on therapeutic anticoagulation. //stage IV Ovarian CA - Recurrent. Following w/ Dr. Stoner, currently on chemo, CT Abd/Pelvis w/ extensive progression of disease w/ omental caking and peritoneal carcinomatosis , likely etiology for pt's severe pain at this time. = Continue management as per gynecology/oncology. //Hyperkalemia. = Potassium 3.4. Improved. Continue IV fluids with potassium. = Improved. //UTI: -Urine culture with mixed jennifer. Discussed Condition With: Patient, nurse Discharge Planning: Still with intractable nausea vomiting. pending inserting operator/onc clearance.
--- NOTE | 2018-09-21 08:32 | XR ---
EXAM DATE: 09/21/2018 8:29 AM EST AGE/SEX: 83 years / Female INDICATIONS: Obstruction. CLINICAL DATA: This is the patient's initial encounter. Patient reports that signs and symptoms have been present for 1 day and indicates a pain score of Nonresponsive. MEDICAL/SURGICAL HISTORY: . Carcinoma, ovarian. Hypertension. . Hysterectomy. Port placement. [place] [facility] [place]AST[place] 09/17/2018. . FINDINGS: Nasogastric tube descends into the stomach. There is a paucity of intestinal gas. No definite dilate d bowel loops visualized. Pelvic stimulator apparatus noted on the left. Prominent scoliosis and dege nerative change in the spine and degenerative changes in the hips. No suspicious calcific densities. CONCLUSION: Nonspecific abdomen appearance. Electronically signed by: Andrea Ceballos MD Board Certified Radiologist 09/21/2018 8:31 AM EST
[2018-09-21] MEDS ORDERED: Vancomycin Inj 1,000 MG in Sodium Chlor 0.9% Inj 250 ML IV.SIG SCH (09:00)
[2018-09-21] MEDS: Pantoprazole Inj 40 MG Vial IV.PUSH SCH (09:02)
[2018-09-21] MEDS: Piperacil/Tazo 4.5 GM Premix 4.5 GM/100 ML BAG IV.SIG SCH ×3 (09:03→23:04)
[2018-09-21] MEDS: Senna/Docusate Sodium 8.6/50 MG Tablet PO SCH ×2 (10:20→20:06)
[2018-09-21] MEDS: Metoprolol Tartrate 25 MG Tablet G-TUBE SCH ×2 (10:20→20:06)
[2018-09-21] MEDS: Sucralfate Liq 1 GM/10 ML UDC PO SCH ×4 (10:21→20:22)
--- NOTE | 2018-09-21 11:07 | P.PNONC ---
Subjective Interval history: patient had an episode of emesis this am and probable aspiration, patient started c/o SOA and had an increase in RR CXR shown possible aspiration pneumonia. patient started on oxygen nonrebreather mask D dimer elevated patient currently on Xarelto started on Vancomycin and Zosyn per Med team NG tube placed with aprox 300cc out per RN at this time Patient is lethargic will open eyes to stimulation will move head yes/no but readily falls back to sleep afebrile, diaphoretic Discussed with Adilia, Palliative Care, and RN Discussed with Ms. Conde daughter Gauri Guy patient is DNR/DNI Objective Vital Signs/Intake & Output: Vital Signs 09/20/18 12:00 09/20/18 16:00 09/20/18 20:00 Temperature 98.1 F 97.9 F 98.4 F Pulse Rate 100 H 104 H 110 H Respiratory Rate 20 15 16 Blood Pressure 150/91 H 156/91 H 156/94 H Pulse Oximetry 98 97 98 09/21/18 00:00 09/21/18 04:00 09/21/18 04:25 Temperature 98.1 F 97.6 F Pulse Rate 105 H 116 H 122 H Respiratory Rate 16 22 Blood Pressure 157/98 H 144/85 H Pulse Oximetry 87 L 09/21/18 05:25 09/21/18 07:49 09/21/18 07:50 Temperature 99.4 F Pulse Rate 135 H 152 H 152 H Respiratory Rate 40 H 39 H Blood Pressure 117/72 Pulse Oximetry 92 L 98 09/21/18 09:31 09/21/18 09:52 Temperature 98.3 F Pulse Rate 122 H Respiratory Rate 34 H Blood Pressure 106/72 Pulse Oximetry 99 99 Intake & Output 09/20/18 09/21/18 09/21/18 18:59 06:59 18:59 Intake Total 1015 / 1015 1355 / 1355 100 / 100 Output Total 500 / 500 1000 / 1000 Balance 515 / 515 355 / 355 100 / 100 Weight 70 kg Intake: IV 1015 / 1015 1115 / 1115 100 / 100 KCl Inj 30 MEQ In D5W Inj 1,000 1015 / 1015 1015 / 1015 ML @ 100 mls/hr IV.CONT . Q10H9M [facility] Rx#:[id number] Unasyn Inj 3 GM In NS Inj 100 100 / 100 ML @ 200 mls/hr IV.SIG Q6H [facility] Rx#:[id number] Rocephin Inj 1,000 MG In NS Inj 100 / 100 100 ML @ 200 mls/hr IV.SIG Q24H [facility] Rx#:[id number] Oral 240 / 240 Output: Urine 400 / 400 900 / 900 Emesis 100 / 100 Gastric Drainage 100 / 100 Left Nare Nasogastric Tube 100 / 100 Other: # Voids 1 Date of Last Bowel Movement 09/19/18 # Emeses 2 Result Diagrams: 09/21/18 06:47 09/21/18 04:35 Laboratory Results: Laboratory Results - last 24 hr 09/21/18 09/21/18 09/21/18 04:35 05:35 06:41 WBC RBC Hgb Hct MCV MCH MCHC RDW Plt Count MPV Neut % (Auto) Lymph % (Auto) [place] % (Auto) Eos % (Auto) Baso % (Auto) Neut # (Auto) Lymph # (Auto) [place] # (Auto) Eos # (Auto) Baso # (Auto) WBC Differential Differential Comment D-Dimer Quant (PE/DVT) Puncture Site Right radial Patient Temperature 98.6 O2 Saturation 83 L* ABG pH 7.46 H ABG pCO2 34 L ABG pO2 49 L* ABG HCO3 24 ABG O2 Content 18.8 ABG Base Excess 0.9 ABG Methemoglobin 1.4 Demetrius Test Present Hemoglobin 16.3 H Carboxyhemoglobin 0.9 O2 Delivery Device simple mask Liter Flow 10.00 Critical Value Yes Sodium 136 Potassium 3.8 Chloride 102 Carbon Dioxide 26.6 Anion Gap 7 BUN 4 L Creatinine 0.71 Estimated GFR 79 L Random Glucose 138 H Lactic Acid 2.0 Calcium 8.4 L Phosphorus 2.3 L Magnesium 1.8 B-Natriuretic Peptide Albumin 2.5 L 09/21/18 09/21/18 09/21/18 06:47 06:47 09:04 WBC 7.5 RBC 4.12 Hgb 12.2 D Hct 35.6 MCV 86.3 MCH 29.7 MCHC 34.4 RDW 13.0 Plt Count 388 MPV 6.5 L Neut % (Auto) 91.9 H Lymph % (Auto) 4.1 L [place] % (Auto) 3.6 Eos % (Auto) 0.1 Baso % (Auto) 0.3 Neut # (Auto) 6.9 Lymph # (Auto) 0.3 L [place] # (Auto) 0.3 Eos # (Auto) 0.0 Baso # (Auto) 0.0 WBC Differential . Differential Comment Auto diff final D-Dimer Quant (PE/DVT) 4.19 H Puncture Site Patient Temperature O2 Saturation ABG pH ABG pCO2 ABG pO2 ABG HCO3 ABG O2 Content ABG Base Excess ABG Methemoglobin Demetrius Test Hemoglobin Carboxyhemoglobin O2 Delivery Device Liter Flow Critical Value Sodium Potassium Chloride Carbon Dioxide Anion Gap BUN Creatinine Estimated GFR Random Glucose Lactic Acid 1.1 Calcium Phosphorus Magnesium B-Natriuretic Peptide Albumin 09/21/18 09:04 WBC RBC Hgb Hct MCV MCH MCHC RDW Plt Count MPV Neut % (Auto) Lymph % (Auto) [place] % (Auto) Eos % (Auto) Baso % (Auto) Neut # (Auto) Lymph # (Auto) [place] # (Auto) Eos # (Auto) Baso # (Auto) WBC Differential Differential Comment D-Dimer Quant (PE/DVT) Puncture Site Patient Temperature O2 Saturation ABG pH ABG pCO2 ABG pO2 ABG HCO3 ABG O2 Content ABG Base Excess ABG Methemoglobin Demetrius Test Hemoglobin Carboxyhemoglobin O2 Delivery Device Liter Flow Critical Value Sodium Potassium Chloride Carbon Dioxide Anion Gap BUN Creatinine Estimated GFR Random Glucose Lactic Acid Calcium Phosphorus Magnesium B-Natriuretic Peptide 52 Albumin Culture Results: Microbiology 09/17/18 18:05 Urine Culture - Final Clean Catch Urine 50-100,000 cfu/mL mixed jennifer (probable contaminants) Imaging Studies: Impressions Chest X-Ray 09/21/18 05:05 CONCLUSION: Bilateral perihilar infiltrates and partially consolidative infiltrate in the left lower lobe. Abdomen X-Ray 09/21/18 06:36 CONCLUSION: Nonspecific abdomen appearance. Medications: Active Medications Generic Name Dose Route Start Last Admin Trade Name Freq PRN Reason Stop Dose Admin Hydrocodone Bitart/Acetaminophen 1 tab 09/17/18 19:07 09/18/18 19:52 [place] 10/325 PO 1 tab Q4H PRN Administration PAIN 3-5 Albuterol 1 ampul 09/21/18 05:04 09/21/18 05:24 Duoneb Neb (Prn) NEB 1 ampul Q4HR NEB PRN Administration WHEEZING Apixaban 5 mg 09/18/18 09:00 09/20/18 20:46 Eliquis PO 5 mg BID [facility] Administration Dronabinol 5 mg 09/20/18 11:00 09/20/18 16:26 Marinol PO 5 mg BID@1100,1600 [facility] Administration Gabapentin 600 mg 09/20/18 18:00 09/20/18 17:58 Neurontin PO 600 mg QPM [facility] Administration Potassium Chloride 30 meq/ 1,015 mls @ 100 mls/hr 09/19/18 12:00 09/21/18 05: 49 Dextrose IV.CONT Not Given .Q10H9M [facility] Piperacillin/Tazobactam/Dextrose 4.5 gm in 100 mls @ 200 mls/hr 09/21/18 10: 00 09/21/18 09:03 Zosyn 4.5 Gm Premix IV.SIG 200 mls/hr Q6H [facility] Administration Lorazepam 0.5 mg 09/20/18 15:43 09/20/18 20:42 Ativan PO 0.5 mg Q6H PRN Administration NAUSEA OR VOMITING Metoclopramide HCl 5 mg 09/20/18 16:00 09/21/18 09:03 Reglan Inj IV.PUSH 5 mg Q8H [facility] Administration Protocol Ondansetron HCl 4 mg 09/17/18 19:05 09/21/18 05:47 Zofran Inj IV.PUSH 4 mg Q6H PRN Administration NAUSEA OR VOMITING Padimate O 1 applicatio 09/18/18 07:58 09/18/18 11:06 Chapstick TOPICAL 1 applicatio UNSCH PRN Administration CHAPPED LIPS Pantoprazole Sodium 40 mg 09/18/18 08:00 09/21/18 09:02 Protonix Inj IV.PUSH 40 mg Q24H [facility] Administration Prochlorperazine Maleate 5 mg 09/20/18 08:06 09/20/18 16:26 Compazine PO 5 mg Q6H PRN Administration NAUSEA OR VOMITING Senna/Docusate Sodium 1 tab 09/17/18 21:00 09/20/18 20:45 Yulissa-Colace PO Not Given BID [facility] Sodium Chloride 2 ml 09/17/18 21:00 09/20/18 20:45 Ns Flush IV.FLUSH Not Given BID [facility] Sucralfate 1 gm 09/19/18 12:00 09/20/18 20:51 Carafate Liq PO 1 gm ACHS [facility] Administration Objective Remarks: GENERAL: acutely ill SKIN: warm and diaphoretic HEAD: Normocephalic. EYES: No scleral icterus. No injection or drainage. CARDIOVASCULAR: tachycardic RESPIRATORY: decreased breath sounds bilat GASTROINTESTINAL: decreased BS X 4 EXTREMITIES: No cyanosis, or edema. MUSCULOSKELETAL: Adequate muscle tone. NEUROLOGICAL: lethargic, opens eyes to stimulus Assessment/Plan (1) Ovarian ca Code(s): C56.9 - Malignant neoplasm of unspecified ovary Status: Chronic (2) UTI (urinary tract infection) Code(s): N39.0 - Urinary tract infection, site not specified Status: Acute (3) Intractable abdominal pain Code(s): R10.9 - Unspecified abdominal pain Status: Acute (4) Nausea & vomiting Code(s): R11.2 - Nausea with vomiting, unspecified Status: Acute - Plan tumor burden contributing to current symptoms of pain, nausea and vomiting Continue supportive care increase Marinol to 5 mg BID IV hydration antiemetics Palliative care following, PT DNR PT/OT will add Compazine 5mg Q 8 hours prn/ nausea and vomiting, in hopes to get better control over N/V patient wishes to continue with treatment once discharged, will continue with outpt labs and IV hydration. 09/21/18 patient acutely ill, lethargic acute event this morning, patient with probable aspiration, c/o SOA and tachypneic CXR shown pneumonia elevated D dimer, on Eliquist ABX, non-rebreather NG tube to LIWS Discussed with Dr. Stoner Palliative Care following patient's daughter notified, family to make arrangements to travel to [place] patient DNR/DNI
--- NOTE | 2018-09-21 12:00 | P.PNPAL ---
Reason for Visit Reason for visit: a. To assist with evaluation and management of symptoms including: Dyspnea, lethargy b. To assist medical decision maker(s) with: better understanding of current medical conditions; weighing benefits/burdens of medical treatment options; making medical treatment decisions. Subjective Subjective/Interval History: This is an 83 y/o female with recurrent ovarian cancer s/p hysterectomy and undergoing chemo who presented to the ER 09/17/18 for worsening LUQ abd pain and n/v. She is being treated currently for a UTI. She follows with Dr Stoner and is currently undergoing line 3 chemo; per oncology notes she had her 1st round doxorubicin 09/07/18. Prior she had some chemomtherapy with gemzar in [place] 01/2018 and subsequent treatments were delayed by severe left elbow bursitis requiring surgery. She is scheduled for another round doxorubicin next Oct. She had a recent hospitalization in [place] for similar symptoms as this admission and was treated for small bowel obstruciton. Imaging during her admisison in [place] also showed hernias. CT abd/pelvis done 09/17 during this admission shows omental caking and peritoneal carcinomatosis significantly developed as compared to PET 12/2017, no sign SBO. Per oncology note it is too soon to assess her response to treatment and they having her evaluated for a paracentesis. US today showed small amt ascites mostly in RUQ, probably adequate for diagnostic but not therapeutic paracentesis. Patient seen today for follow-up of symptom management of dyspnea and lethargy, as well as discussion of goals for medical treatment. This morning patient became more dyspneic, hypoxic and continued with vomiting. It is suspected that she aspirated. NG tube was placed with return of 250 mL of fluid. She is currently on a 100% nonrebreather and obtunded. She is tachypneic with respiratory rates up to 40. Heart rates are elevated up to the 150s, consistent with possible pulmonary embolus. She was oriented and speaking with the physician at 8:30 AM but when seen at 10:15 AM she was obtunded, saturating 99% on a 15 L nonrebreather and not responding to tactile or verbal stimuli. D-dimer was drawn and returned high at 4.19. No further studies were done as the patient is already on Eliquis, 5 mg twice daily. She is a DO NOT RESUSCITATE status. Friends and her significant other, Gonzalez, is at bedside. Her decision maker is her daughter, Gauri Guy who lives in [place]. . Family/Friend Interactions: Spoke with her friend, Rossy at bedside who is in contact with the daughter and decision-maker, Gauri. I also spoke with Gauri and Paris Thompson, oncology COMPUTED TOMOGRAPHY SCANNER OPERATOR to assist family in further decision-making. Gauri states that her mother was very clear about her wishes not to proceed to aggressive care and she supports her wishes for a DO NOT RESUSCITATE. She is not in favor of additional scans to evaluate possible pulmonary embolus due to the disruption of her mother's care and comfort. She and her family are attempting to arrange a flight to [place] today but are aware that given her mother's critical condition, she may pass prior to family being able to arrive. The family is in favor of any medications to provide her mother comfort regardless of alertness. They do not wish her to experience any anxiety, fear or pain. Ativan is available but her only pain medication is an oral tablet. As she now has an NG tube to [facility], she may benefit from an IV pain medication, such as morphine. Family Services Assistant was called for patient's significant other as he is very distraught. Friends remain at bedside to provide him support. . Advance Directives Living Will: Copy in medical record Health Care Surrogate: Copy in medical record Health Care Surrogate Name and Number: Delia Guy [phone] Objective Vital Signs: Vital Signs 09/20/18 12:00 09/20/18 16:00 09/20/18 20:00 Temperature 98.1 F 97.9 F 98.4 F Pulse Rate 100 H 104 H 110 H Respiratory Rate 20 15 16 Blood Pressure 150/91 H 156/91 H 156/94 H Pulse Oximetry 98 97 98 09/21/18 00:00 09/21/18 04:00 09/21/18 04:25 Temperature 98.1 F 97.6 F Pulse Rate 105 H 116 H 122 H Respiratory Rate 16 22 Blood Pressure 157/98 H 144/85 H Pulse Oximetry 87 L 09/21/18 05:25 09/21/18 07:49 09/21/18 07:50 Temperature 99.4 F Pulse Rate 135 H 152 H 152 H Respiratory Rate 40 H 39 H Blood Pressure 117/72 Pulse Oximetry 92 L 98 09/21/18 09:31 09/21/18 09:52 Temperature 98.3 F Pulse Rate 122 H Respiratory Rate 34 H Blood Pressure 106/72 Pulse Oximetry 99 99 Intake & Output 09/20/18 09/21/18 09/21/18 18:59 06:59 18:59 Intake Total 1015 / 1015 1355 / 1355 100 / 100 Output Total 500 / 500 1000 / 1000 Balance 515 / 515 355 / 355 100 / 100 Weight 154 lb 5.177 oz Intake: IV 1015 / 1015 1115 / 1115 100 / 100 KCl Inj 30 MEQ In D5W Inj 1,000 1015 / 1015 1015 / 1015 ML @ 100 mls/hr IV.CONT . Q10H9M GISSEL Rx#:[id number] Unasyn Inj 3 GM In NS Inj 100 100 / 100 ML @ 200 mls/hr IV.SIG Q6H GISSEL Rx#:[id number] Rocephin Inj 1,000 MG In NS Inj 100 / 100 100 ML @ 200 mls/hr IV.SIG Q24H GISSEL Rx#:[id number] Oral 240 / 240 Output: Urine 400 / 400 900 / 900 Emesis 100 / 100 Gastric Drainage 100 / 100 Left Nare Nasogastric Tube 100 / 100 Other: # Voids 1 Date of Last Bowel Movement 09/19/18 # Emeses 2 Physical Exam: CONSTITUTIONAL/GENERAL: This is an adequately nourished patient, obtunded, in no acute distress. TUBES/LINES/DRAINS: Left subclavian port with IV fluid infusing. SKIN: Pale. No jaundice, rashes, or lesions. Ecchymoses on upper extremities. No wounds seen anteriorly. Skin temperature appropriate. Not diaphoretic. CARDIOVASCULAR: Tachycardic, regular rhythm without murmurs, gallops, or rubs. No JVD. Peripheral pulses symmetric. RESPIRATORY/CHEST: Respirations symmetric, unlabored, rhonchi and wheezes throughout all lung cohen anteriorly, diminished at the bases. On 100% NRB mask. GASTROINTESTINAL: Abdomen soft, distended, + ventral hernia, mild diffuse TTP. No hepato-splenomegaly, or palpable masses. No guarding. Bowel sounds present. GENITOURINARY: Without palpable bladder distension. MUSCULOSKELETAL: Extremities without clubbing, cyanosis, or edema. No joint tenderness or effusion noted. No calf tenderness. No mottling or clubbing. Left ankle > right ankle NEUROLOGICAL: Obtunded. Not responding to tactile or verbal stimuli. PSYCHIATRIC: Obtunded. . Diagnostic Tests Laboratory: Laboratory Results - last 72 hr 09/18/18 09/20/18 09/20/18 15:30 03:30 03:30 WBC 5.0 RBC 3.31 L Hgb 9.6 L Hct 28.9 L MCV 87.3 MCH 28.9 MCHC 33.1 RDW 13.0 Plt Count 310 MPV 7.3 Neut % (Auto) 80.3 H Lymph % (Auto) 10.4 [place] % (Auto) 6.8 Eos % (Auto) 2.1 Baso % (Auto) 0.4 Neut # (Auto) 4.0 Lymph # (Auto) 0.5 L [place] # (Auto) 0.3 Eos # (Auto) 0.1 Baso # (Auto) 0.0 WBC Differential . Differential Comment Auto diff final D-Dimer Quant (PE/DVT) Puncture Site Patient Temperature O2 Saturation ABG pH ABG pCO2 ABG pO2 ABG HCO3 ABG O2 Content ABG Base Excess ABG Methemoglobin Demetrius Test Hemoglobin Carboxyhemoglobin O2 Delivery Device Liter Flow Critical Value Sodium 137 Potassium 3.4 L Chloride 103 Carbon Dioxide 27.2 Anion Gap 7 BUN 6 L Creatinine 0.64 Estimated GFR 89 Random Glucose 122 H Lactic Acid Calcium 8.2 L Phosphorus 2.5 Magnesium 1.6 Total Bilirubin 0.2 Direct Bilirubin 0.1 Indirect Bilirubin 0.1 AST 19 ALT 9 L Alkaline Phosphatase 61 B-Natriuretic Peptide Total Protein 6.1 L D Albumin 2.3 L Urine Color Yellow Urine Clarity Hazy H Urine pH 5.0 Ur Specific [place] 1.042 H Urine Protein 30 H Urine Glucose (UA) Negative Urine Ketones 80 or greater H Urine Occult Blood Negative Urine Nitrate Negative Urine Bilirubin Negative Urine Urobilinogen Less than 2 Ur Leukocyte Esterase Negative Urine RBC Less than 1 Urine WBC Less than 1 Ur Squamous Epith Cells <1 Urine Mucus Few H Ur Microscopic Review Not Reportable 09/21/18 09/21/18 09/21/18 04:35 05:35 06:41 WBC RBC Hgb Hct MCV MCH MCHC RDW Plt Count MPV Neut % (Auto) Lymph % (Auto) [place] % (Auto) Eos % (Auto) Baso % (Auto) Neut # (Auto) Lymph # (Auto) [place] # (Auto) Eos # (Auto) Baso # (Auto) WBC Differential Differential Comment D-Dimer Quant (PE/DVT) Puncture Site Right radial Patient Temperature 98.6 O2 Saturation 83 L* ABG pH 7.46 H ABG pCO2 34 L ABG pO2 49 L* ABG HCO3 24 ABG O2 Content 18.8 ABG Base Excess 0.9 ABG Methemoglobin 1.4 Demetrius Test Present Hemoglobin 16.3 H Carboxyhemoglobin 0.9 O2 Delivery Device simple mask Liter Flow 10.00 Critical Value Yes Sodium 136 Potassium 3.8 Chloride 102 Carbon Dioxide 26.6 Anion Gap 7 BUN 4 L Creatinine 0.71 Estimated GFR 79 L Random Glucose 138 H Lactic Acid 2.0 Calcium 8.4 L Phosphorus 2.3 L Magnesium 1.8 Total Bilirubin Direct Bilirubin Indirect Bilirubin AST ALT Alkaline Phosphatase B-Natriuretic Peptide Total Protein Albumin 2.5 L Urine Color Urine Clarity Urine pH Ur Specific [place] Urine Protein Urine Glucose (UA) Urine Ketones Urine Occult Blood Urine Nitrate Urine Bilirubin Urine Urobilinogen Ur Leukocyte Esterase Urine RBC Urine WBC Ur Squamous Epith Cells Urine Mucus Ur Microscopic Review 09/21/18 09/21/18 09/21/18 06:47 06:47 09:04 WBC 7.5 RBC 4.12 Hgb 12.2 D Hct 35.6 MCV 86.3 MCH 29.7 MCHC 34.4 RDW 13.0 Plt Count 388 MPV 6.5 L Neut % (Auto) 91.9 H Lymph % (Auto) 4.1 L [place] % (Auto) 3.6 Eos % (Auto) 0.1 Baso % (Auto) 0.3 Neut # (Auto) 6.9 Lymph # (Auto) 0.3 L [place] # (Auto) 0.3 Eos # (Auto) 0.0 Baso # (Auto) 0.0 WBC Differential . Differential Comment Auto diff final D-Dimer Quant (PE/DVT) 4.19 H Puncture Site Patient Temperature O2 Saturation ABG pH ABG pCO2 ABG pO2 ABG HCO3 ABG O2 Content ABG Base Excess ABG Methemoglobin Demetrius Test Hemoglobin Carboxyhemoglobin O2 Delivery Device Liter Flow Critical Value Sodium Potassium Chloride Carbon Dioxide Anion Gap BUN Creatinine Estimated GFR Random Glucose Lactic Acid 1.1 Calcium Phosphorus Magnesium Total Bilirubin Direct Bilirubin Indirect Bilirubin AST ALT Alkaline Phosphatase B-Natriuretic Peptide Total Protein Albumin Urine Color Urine Clarity Urine pH Ur Specific [place] Urine Protein Urine Glucose (UA) Urine Ketones Urine Occult Blood Urine Nitrate Urine Bilirubin Urine Urobilinogen Ur Leukocyte Esterase Urine RBC Urine WBC Ur Squamous Epith Cells Urine Mucus Ur Microscopic Review 09/21/18 09:04 WBC RBC Hgb Hct MCV MCH MCHC RDW Plt Count MPV Neut % (Auto) Lymph % (Auto) [place] % (Auto) Eos % (Auto) Baso % (Auto) Neut # (Auto) Lymph # (Auto) [place] # (Auto) Eos # (Auto) Baso # (Auto) WBC Differential Differential Comment D-Dimer Quant (PE/DVT) Puncture Site Patient Temperature O2 Saturation ABG pH ABG pCO2 ABG pO2 ABG HCO3 ABG O2 Content ABG Base Excess ABG Methemoglobin Demetrius Test Hemoglobin Carboxyhemoglobin O2 Delivery Device Liter Flow Critical Value Sodium Potassium Chloride Carbon Dioxide Anion Gap BUN Creatinine Estimated GFR Random Glucose Lactic Acid Calcium Phosphorus Magnesium Total Bilirubin Direct Bilirubin Indirect Bilirubin AST ALT Alkaline Phosphatase B-Natriuretic Peptide 52 Total Protein Albumin Urine Color Urine Clarity Urine pH Ur Specific [place] Urine Protein Urine Glucose (UA) Urine Ketones Urine Occult Blood Urine Nitrate Urine Bilirubin Urine Urobilinogen Ur Leukocyte Esterase Urine RBC Urine WBC Ur Squamous Epith Cells Urine Mucus Ur Microscopic Review Result Diagrams: 09/23/18 05:55 09/23/18 05:55 Microbiology: Microbiology 09/17/18 18:05 Urine Culture - Final Clean Catch Urine 50-100,000 cfu/mL mixed jennifer (probable contaminants) Imaging: ITS Impressions Abdomen/Pelvis CT 09/17/18 14:15 CONCLUSION: Since the patient's F-18 FDG PET/CT from 12/2017 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 Abdomen Ultrasound 09/18/18 00:00 CONCLUSION: Small amount of ascites, most prominent in the right upper abdominal quadrant. Volume is probably adequate for diagnostic tap but insufficient for therapeutic aspiration. Chest X-Ray 09/21/18 05:05 CONCLUSION: Bilateral perihilar infiltrates and partially consolidative infiltrate in the left lower lobe. Abdomen X-Ray 09/21/18 06:36 CONCLUSION: Nonspecific abdomen appearance. Assessment and Plan - Symptom Scale (1) Dyspnea 0-10 Scale: Unable to quantify (2) Lethargy 0-10 Scale: Unable to quantify Pertinent Non-Medical Issues: Psychosocial: Pt originally from [place]. SHe and her significant other have been snowbirds for the last 18 years. She is . Has 4 children. 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 Spiritual: Jew, receiving pastoral care. Legal: Pt currently capacitated to make healthcare decisions. In the event she becomes incapacitated she has designated her daughter Delia as her HCS. Ethical issues impacting care: none Important Contacts: [facility] ginny Lin - [phone] Prognosis: 83 y/o female with recurrent ovarian ca just completed 1st round of line 3 treatment. She is having abd pain and n/v. Her current chemotherapy regimen is considered to be palliative in nature. Her chemotherapy previously was delayed after an elbow infections. It is likely she will continue to experience setbacks and decline. Given the extent of her malignancy, prognosis is poor and she is hospice appropriate should her goals be in line with comfort. Code Status: No Code DNR Plan: - LEGAL DECISION MAKER - Pt currently capacitated to make healthcare decisions. In the event she becomes incapacitated, she has designated her daughter Delia as her HCS - CODE STATUS- no code/dnr - GOALS - Pt has good insight. Goals aggressive short of no code/DNR. SHe completed a living will and is adamant that she would never want a feeding tube. She would like to continue to attempt palliative chemo if possible. SHe verbalizes understanding that her cancer is progressing and chemotherapy regimen is palliative and not curative, "I dont' know if I can bounce back from this." - SYMPTOMS - * Dyspnea: Suspected to have aspirated. Progressively more hypoxic with the likelihood that she has also experienced a pulmonary embolus. D-dimer is elevated, she became acutely hypoxic, tachypneic and tachycardic. She is currently on Eliquis, however does have metastatic ovarian cancer. Patient had made herself a DO NOT INTUBATE, DO NOT RESUSCITATE status and family is supportive of that decision. They wish her to be comfortable and free from pain. Would recommend adding morphine 2 mg IV every 2 hours as needed pain or dyspnea. * Lethargy: She has become more lethargic and obtunded since this morning when it is believed that she aspirated. Her d-dimer was elevated and it is uncertain if or when she may have sustained a pulmonary embolus. She has become progressively more hypoxic, with blood gas at 5:35 AM showing pH 7.46, PCO2 34, PO2 49 and saturation 83% on a 10 L simple mask. She has been upgraded to a 100% nonrebreather and is saturating adequately by pulse oximetry. - Palliative care will continue to follow during hospital course as condition evolves, to assist patient/decision-maker with understanding of medical conditions, weighing benefits/burdens of treatment options, for clarification of goals of treatment. Additionally will assist with any symptoms of palliative concern
--- NOTE | 2018-09-21 17:20 | MB ---
cc: Lloyd Desai MD DATE: 09/21/2018 REASON FOR CONSULTATION: Aspiration pneumonia. HISTORY OF PRESENT ILLNESS: Mrs. Conde is an 83-year-old female with known history of ovarian cancer, receiving chemotherapy, admitted to the Emergency Room on 09/17/2018 with left upper quadrant pain, nausea, and vomiting, found to have underlying UTI for which she has been treated. The patient had vomited this a.m. and apparently aspirated. Chest x-ray evidence of pneumonia. The patient has evidence of peritoneal carcinomatosis by CT scan upon presentation as well. The patient presently seems comfortable. NG tube in place with suction and has been started on antibiotic therapy. She is on oxygen therapy for underlying hypoxemia. PAST MEDICAL HISTORY: Ovarian cancer as mentioned above, history of pulmonary embolism in the past on anticoagulant therapy. PAST SURGICAL HISTORY: Hysterectomy and humeral fracture. FAMILY HISTORY: Noncontributory. SOCIAL HISTORY: She does not smoke, does not drink. No TB, no industrial exposure. MEDICATIONS: Kindly review MAR for same. REVIEW OF SYSTEMS: A 12-points review of systems as per HPI and past history, otherwise negative. PHYSICAL EXAMINATION: GENERAL: The patient is alert. VITAL SIGNS: Temperature 97, pulse 90, respirations 20, blood pressure 110/60. Oxygen saturation 98% on O2 therapy via mask. HEENT: Unremarkable. Eyes without icterus. NECK: Without adenopathy or thyroid enlargement. Central trachea. LABORATORY DATA: White count 7.5, hemoglobin 12, hematocrit 35, platelets 388,000. INR 1.1. Sodium 136, potassium 3.8, BUN 4, creatinine 0.7. ABG 09/21/2018, pH 7.46, pCO2 of 34, pO2 of 49. IMPRESSION: 1. Acute hypoxic respiratory failure. 2. Aspiration of gastric contents and underlying pneumonia, most likely related to same. 3. Ovarian cancer. 4. History of PE. PLAN: The patient to continue oxygen therapy. She has been started on antibiotic therapy and appropriately so. Her chest x-ray is with bilateral perihilar lung infiltrates suggestive of underlying pneumonia with evidence of a left lower lobe infiltrate as well. The patient is doing well at present with adequate oxygenation. However, overall prognosis is poor given her underlying widespread ovarian cancer. She is DNR status at this time, and palliative care is following as well. I do thank you for asking me to partake in Mrs. Conde's care. MD OMA Quintana/ , 04:50 PM , 05:00 PM
[2018-09-21] MEDS: Gabapentin 300 MG Capsule PO SCH (17:25)
[2018-09-21] MEDS ORDERED: Phenol 1.4% 180 ML Spray Bottle OROPHARYNG PRN (23:42)
[2018-09-22] MEDS: WATER IV.CONT SCH ×4 (04:24→20:01)
[2018-09-22] MEDS: Piperacil/Tazo 4.5 GM Premix 4.5 GM/100 ML BAG IV.SIG SCH ×4 (04:24→21:42)
[2018-09-22] MEDS: POTASSIUM CHLORIDE IV.CONT SCH ×4 (04:24→20:01)
[2018-09-22] MEDS: DEXTROSE 5% IV.CONT SCH ×4 (04:24→20:01)
[2018-09-22 05:36] LABS: Hematocrit 24.8 % (35.0-46.0); Hemoglobin 8.6 gm/dL (11.6-15.3); Lymph # (Auto) 0.4 th/mm3 (1.0-4.8); Lymph % (Auto) 6.5 % (9.0-44.0); Mean Corpuscular HGB Conc 34.5 % (32.0-36.0); Mean Corpuscular Volume 86.8 fL (80.0-100.0); Mean Platelet Volume 7.3 fL (7.0-11.0); Mono # (Auto) 0.4 th/mm3 (0.0-0.9); Mono % (Auto) 6.2 % (0.0-8.0); Neut # (Auto) 5.1 th/mm3 (1.8-7.7); Neut % (Auto) 87.3 % (16.0-70.0); Platelet Count 260 th/mm3 (150-450); Red Blood Count 2.86 mil/mm3 (4.00-5.30); Red Cell Distribution Width 12.9 % (11.6-17.2); White Blood Count 5.9 th/mm3 (4.0-11.0)
[2018-09-22 05:45] LABS: Alanine Aminotransferase 10 U/L (10-53); Anion Gap 9 meq/L (5-15); Aspartate Aminotransferase 14 U/L (15-37); Blood Urea Nitrogen 10 mg/dL (7-18); Calcium 7.8 mg/dL (8.5-10.1); Carbon Dioxide 24.7 meq/L (21.0-32.0); Chloride 105 meq/L (98-107); Glomerular Filtration Rate 72 mL/min (>89); Glucose,Random 143 mg/dL (74-106); Magnesium 1.8 mg/dL (1.5-2.5); Phosphorus 2.9 mg/dL (2.5-4.9); Potassium 3.6 meq/L (3.5-5.1); Sodium 139 meq/L (136-145)
[2018-09-22 05:48] LABS: Alkaline Phosphatase 55 U/L (45-117); Total Protein 5.9 g/dL (6.4-8.2)
--- NOTE | 2018-09-22 08:41 | P.PNONC ---
Subjective Interval history: patient is sitting in chair, Venti mask for 02 improvement overnight with patient much more awake and alert NG tube to LIWS, patient reports it was clamped for about 20 minutes last night and she started having dry heaves. pain controlled at this time patient's family flying into town patient would like to talk with Hospice to gain information on services. she understands that she would still have to continue to improve greatly to continue with treatment, she would have to gain back strength and the nausea/vomiting would have to resolve. Objective Vital Signs/Intake & Output: Vital Signs 09/21/18 09:31 09/21/18 09:52 09/21/18 12:00 Temperature 98.3 F 97.4 F L Pulse Rate 122 H 100 H Respiratory Rate 34 H 24 Blood Pressure 106/72 113/68 Pulse Oximetry 99 99 98 09/21/18 12:26 09/21/18 15:08 09/21/18 16:00 Temperature 96.2 F L Pulse Rate 86 99 H 105 H Respiratory Rate 32 H 16 23 Blood Pressure 107/65 Pulse Oximetry 98 09/21/18 20:00 09/21/18 21:25 09/21/18 21:41 Temperature 98 F Pulse Rate 90 89 Respiratory Rate 22 17 Blood Pressure 108/69 Pulse Oximetry 97 98 97 09/22/18 00:00 09/22/18 04:00 09/22/18 08:04 Temperature 98 F 97.6 F 97.6 F Pulse Rate 100 H 84 97 H Respiratory Rate 18 20 24 Blood Pressure 132/57 L 113/70 106/59 L Pulse Oximetry 95 96 96 09/22/18 08:24 Temperature Pulse Rate 99 H Respiratory Rate 15 Blood Pressure Pulse Oximetry 96 Intake & Output 09/21/18 09/22/18 09/22/18 18:59 06:59 18:59 Intake Total 2950 / 2950 1320 / 1320 Output Total 700 / 700 600 / 600 300 / 300 Balance 2250 / 2250 720 / 720 -300 / -300 Weight 71 kg Intake: IV 2950 / 2950 1200 / 1200 KCl Inj 30 MEQ In D5W Inj 1,000 1400 / 1400 1000 / 1000 ML @ 100 mls/hr IV.CONT . Q10H9M ANEL Rx#:[id number] Unasyn Inj 3 GM In NS Inj 100 100 / 100 ML @ 200 mls/hr IV.SIG Q6H ANEL Rx#:[id number] Zosyn 4.5 GM Premix 4.5 gm In 200 / 200 200 / 200 100 ml @ 200 mls/hr IV.SIG Q6H ANEL Rx#:[id number] NS Inj 1,000 ML @ 1000 mls/hr 1000 / 1000 IV.SIG BOLUS ANEL Rx#:[id number] Vancomycin Inj 1,000 MG In NS 250 / 250 Inj 250 ML @ 250 mls/hr IV.SIG Q24H ANEL Rx#:[id number] Oral 120 / 120 Output: Urine 200 / 200 300 / 300 Gastric Drainage 700 / 700 400 / 400 Left Nare Nasogastric Tube 700 / 700 400 / 400 Other: # Voids 2 # Incontinent Voids 2 # Urine Diapers 1 Date of Last Bowel Movement 09/21/18 09/21/18 # Bowel Movements 1 Result Diagrams: 09/22/18 04:30 09/22/18 04:30 Laboratory Results: Laboratory Results - last 24 hr 09/21/18 09/21/18 09/22/18 09:04 09:04 04:30 WBC 5.9 RBC 2.86 L Hgb 8.6 L D Hct 24.8 L MCV 86.8 MCH 30.0 MCHC 34.5 RDW 12.9 Plt Count 260 D MPV 7.3 Neut % (Auto) 87.3 H Lymph % (Auto) 6.5 L [place] % (Auto) 6.2 Eos % (Auto) 0.0 Baso % (Auto) 0.0 Neut # (Auto) 5.1 Lymph # (Auto) 0.4 L [place] # (Auto) 0.4 Eos # (Auto) 0.0 Baso # (Auto) 0.0 WBC Differential . Differential Comment Auto diff final Sodium Potassium Chloride Carbon Dioxide Anion Gap BUN Creatinine Estimated GFR Random Glucose Lactic Acid 1.1 Calcium Phosphorus Magnesium Total Bilirubin Direct Bilirubin Indirect Bilirubin AST ALT Alkaline Phosphatase B-Natriuretic Peptide 52 Total Protein Albumin 09/22/18 04:30 WBC RBC Hgb Hct MCV MCH MCHC RDW Plt Count MPV Neut % (Auto) Lymph % (Auto) [place] % (Auto) Eos % (Auto) Baso % (Auto) Neut # (Auto) Lymph # (Auto) [place] # (Auto) Eos # (Auto) Baso # (Auto) WBC Differential Differential Comment Sodium 139 Potassium 3.6 Chloride 105 Carbon Dioxide 24.7 Anion Gap 9 BUN 10 Creatinine 0.77 Estimated GFR 72 L Random Glucose 143 H Lactic Acid Calcium 7.8 L Phosphorus 2.9 Magnesium 1.8 Total Bilirubin 0.2 Direct Bilirubin Less than 0.1 Indirect Bilirubin 0.1 AST 14 L ALT 10 Alkaline Phosphatase 55 B-Natriuretic Peptide Total Protein 5.9 L Albumin 2.0 L Culture Results: Microbiology 09/17/18 18:05 Urine Culture - Final Clean Catch Urine 50-100,000 cfu/mL mixed jennifer (probable contaminants) Imaging Studies: Impressions Abdomen X-Ray 09/21/18 06:36 CONCLUSION: Nonspecific abdomen appearance. Medications: Active Medications Generic Name Dose Route Start Last Admin Trade Name Freq PRN Reason Stop Dose Admin Hydrocodone Bitart/Acetaminophen 1 tab 09/17/18 19:07 09/18/18 19:52 Eidson 10/325 PO 1 tab Q4H PRN Administration PAIN 3-5 Albuterol 1 ampul 09/21/18 05:04 09/21/18 05:24 Duoneb Neb (Prn) NEB 1 ampul Q4HR NEB PRN Administration WHEEZING Albuterol 1 ampul 09/21/18 10:00 09/22/18 08:21 Duoneb Neb (Anel) NEB 1 ampul Q6HR NEB ANEL Administration Apixaban 5 mg 09/18/18 09:00 09/21/18 20:06 Eliquis PO 5 mg BID ANEL Administration Benzocaine/Menthol 1 lozenge 09/21/18 23:42 09/22/18 00:01 Chloraseptic Sore Throat Lozenge BUCCAL 1 lozenge Q2H PRN Administration SORE THROAT Dronabinol 5 mg 09/20/18 11:00 09/21/18 16:57 Marinol PO Not Given BID@1100,1600 ANEL Gabapentin 600 mg 09/20/18 18:00 09/21/18 17:25 Neurontin PO 600 mg QPM ANEL Administration Potassium Chloride 30 meq/ 1,015 mls @ 100 mls/hr 09/19/18 12:00 09/22/18 04: 24 Dextrose IV.CONT 100 mls/hr .Q10H9M ANEL Administration Vancomycin HCl 1,000 mg/ 250 mls @ 250 mls/hr 09/21/18 09:00 09/21/18 11:20 Sodium Chloride IV.SIG Infused Q24H ANEL Infusion Piperacillin/Tazobactam/Dextrose 4.5 gm in 100 mls @ 200 mls/hr 09/21/18 10: 00 09/22/18 06:48 Zosyn 4.5 Gm Premix IV.SIG Infused Q6H ANEL Infusion Lorazepam 0.5 mg 09/20/18 15:43 09/20/18 20:42 Ativan PO 0.5 mg Q6H PRN Administration NAUSEA OR VOMITING Metoclopramide HCl 5 mg 09/20/18 16:00 09/21/18 23:04 Reglan Inj IV.PUSH 5 mg Q8H ANEL Administration Protocol Metoprolol Tartrate 25 mg 09/21/18 09:45 09/21/18 20:06 Lopressor G-TUBE 25 mg BID ANEL Administration Ondansetron HCl 4 mg 09/17/18 19:05 09/21/18 20:38 Zofran Inj IV.PUSH 4 mg Q6H PRN Administration NAUSEA OR VOMITING Padimate O 1 applicatio 09/18/18 07:58 09/18/18 11:06 Chapstick TOPICAL 1 applicatio UNSCH PRN Administration CHAPPED LIPS Pantoprazole Sodium 40 mg 09/18/18 08:00 09/21/18 09:02 Protonix Inj IV.PUSH 40 mg Q24H ANEL Administration Prochlorperazine Maleate 5 mg 09/20/18 08:06 09/20/18 16:26 Compazine PO 5 mg Q6H PRN Administration NAUSEA OR VOMITING Senna/Docusate Sodium 1 tab 09/17/18 21:00 09/21/18 20:06 Yulissa-Colace PO Not Given BID ANEL Sodium Chloride 2 ml 09/17/18 21:00 09/21/18 20:06 Ns Flush IV.FLUSH Not Given BID ANEL Sucralfate 1 gm 09/19/18 12:00 09/21/18 20:22 Carafate Liq PO 1 gm ACHS ANEL Administration Throat Lozenges 2 spray 09/21/18 23:42 09/22/18 00:01 Chloraseptic [place] OROPHARYNG 2 spray Q2H PRN Administration throat pain Objective Remarks: GENERAL: frail, ill SKIN: Warm and dry. HEAD: Normocephalic. EYES: No scleral icterus. No injection or drainage. NECK: Supple, trachea midline. CARDIOVASCULAR: Regular rate and rhythm RESPIRATORY: venti mask EXTREMITIES: No cyanosis MUSCULOSKELETAL: Adequate muscle tone. NEUROLOGICAL: No obvious focal deficit. Awake, alert, and oriented x3. PSYCHIATRIC: Appropriate mood and affect; insight and judgment normal. Assessment/Plan (1) Ovarian ca Code(s): C56.9 - Malignant neoplasm of unspecified ovary Status: Chronic (2) UTI (urinary tract infection) Code(s): N39.0 - Urinary tract infection, site not specified Status: Acute (3) Intractable abdominal pain Code(s): R10.9 - Unspecified abdominal pain Status: Acute (4) Nausea & vomiting Code(s): R11.2 - Nausea with vomiting, unspecified Status: Acute - Plan tumor burden contributing to current symptoms of pain, nausea and vomiting Continue supportive care increase Marinol to 5 mg BID IV hydration antiemetics Palliative care following, PT DNR PT/OT will add Compazine 5mg Q 8 hours prn/ nausea and vomiting, in hopes to get better control over N/V patient wishes to continue with treatment once discharged, will continue with outpt labs and IV hydration. 09/21/18 patient acutely ill, lethargic acute event this morning, patient with probable aspiration, c/o SOA and tachypneic CXR shown pneumonia elevated D dimer, on Eliquist ABX, non-rebreather NG tube to LIWS Discussed with Dr. Stoner Palliative Care following patient's daughter notified, family to make arrangements to travel to [place] patient DNR/DNI 09/22/19 patient improved overnight family flying into [facility] patient wishes to talk with Hospice about their services unsure if resting bowel for a few days will resolve N/V as abd Xray does not show obvious obstruction continue supportive care, any IV chemotherapy is palliative and patients performance status would have to improve before restarting treatment ABX for pneumonia coverage seen by pulmonology, thank you for input Palliative Care following, we hare thankful for their care
[2018-09-22] MEDS: Senna/Docusate Sodium 8.6/50 MG Tablet PO SCH ×2 (09:00→21:35)
[2018-09-22] MEDS: Sucralfate Liq 1 GM/10 ML UDC PO SCH ×4 (09:30→21:27)
--- NOTE | 2018-09-22 09:31 | P.PNIM ---
Subjective Interval history: Patient says she is feeling a little better than yesterday. Denies any chest pain. Shortness of breath improving. Feels that the NG tube is the only thing that has helped with her nausea. Physical Exam Vital signs: Vital Signs 09/21/18 09:31 09/21/18 09:52 09/21/18 12:00 Temperature 98.3 F 97.4 F L Pulse Rate 122 H 100 H Respiratory Rate 34 H 24 Blood Pressure 106/72 113/68 Pulse Oximetry 99 99 98 09/21/18 12:26 09/21/18 15:08 09/21/18 16:00 Temperature 96.2 F L Pulse Rate 86 99 H 105 H Respiratory Rate 32 H 16 23 Blood Pressure 107/65 Pulse Oximetry 98 09/21/18 20:00 09/21/18 21:25 09/21/18 21:41 Temperature 98 F Pulse Rate 90 89 Respiratory Rate 22 17 Blood Pressure 108/69 Pulse Oximetry 97 98 97 09/22/18 00:00 09/22/18 04:00 09/22/18 08:04 Temperature 98 F 97.6 F 97.6 F Pulse Rate 100 H 84 97 H Respiratory Rate 18 20 24 Blood Pressure 132/57 L 113/70 106/59 L Pulse Oximetry 95 96 96 09/22/18 08:24 Temperature Pulse Rate 99 H Respiratory Rate 15 Blood Pressure Pulse Oximetry 96 Intake & Output 09/21/18 09/22/18 09/22/18 18:59 06:59 18:59 Intake Total 2950 / 2950 1320 / 1320 Output Total 700 / 700 600 / 600 300 / 300 Balance 2250 / 2250 720 / 720 -300 / -300 Weight 71 kg Intake: IV 2950 / 2950 1200 / 1200 KCl Inj 30 MEQ In D5W Inj 1,000 1400 / 1400 1000 / 1000 ML @ 100 mls/hr IV.CONT . Q10H9M GISSEL Rx#:[id number] Unasyn Inj 3 GM In NS Inj 100 100 / 100 ML @ 200 mls/hr IV.SIG Q6H GISSEL Rx#:[id number] Zosyn 4.5 GM Premix 4.5 gm In 200 / 200 200 / 200 100 ml @ 200 mls/hr IV.SIG Q6H GISSEL Rx#:[id number] NS Inj 1,000 ML @ 1000 mls/hr 1000 / 1000 IV.SIG BOLUS GISSEL Rx#:[id number] Vancomycin Inj 1,000 MG In NS 250 / 250 Inj 250 ML @ 250 mls/hr IV.SIG Q24H GISSEL Rx#:[id number] Oral 120 / 120 Output: Urine 200 / 200 300 / 300 Gastric Drainage 700 / 700 400 / 400 Left Nare Nasogastric Tube 700 / 700 400 / 400 Other: # Voids 2 # Incontinent Voids 2 # Urine Diapers 1 Date of Last Bowel Movement 09/21/18 09/21/18 # Bowel Movements 1 Narrative: GENERAL: Patient sitting up in chair. Awake. Appears comfortable. oriented x3. SKIN: Warm and dry. HEAD: Normocephalic. EYES: No scleral icterus. No injection or drainage. NECK: Supple, trachea midline. No JVD. CARDIOVASCULAR: Regular rate and rhythm without murmurs, gallops, or rubs. RESPIRATORY: Breath sounds with crackles bilaterally. No accessory muscle use. GASTROINTESTINAL: Abdomen soft, non-tender, nondistended. MUSCULOSKELETAL: No cyanosis, trace edema bilaterally. BACK: Nontender without obvious deformity. No CVA tenderness. - Urinary Catheter Management Straight Cath placed during this visit: no Results - Labs CBC & Chem 7: 09/22/18 04:30 09/22/18 04:30 Laboratory Results - last 24 hr 09/21/18 09/21/18 09/22/18 09:04 09:04 04:30 WBC 5.9 RBC 2.86 L Hgb 8.6 L D Hct 24.8 L MCV 86.8 MCH 30.0 MCHC 34.5 RDW 12.9 Plt Count 260 D MPV 7.3 Neut % (Auto) 87.3 H Lymph % (Auto) 6.5 L [place] % (Auto) 6.2 Eos % (Auto) 0.0 Baso % (Auto) 0.0 Neut # (Auto) 5.1 Lymph # (Auto) 0.4 L [place] # (Auto) 0.4 Eos # (Auto) 0.0 Baso # (Auto) 0.0 WBC Differential . Differential Comment Auto diff final Sodium Potassium Chloride Carbon Dioxide Anion Gap BUN Creatinine Estimated GFR Random Glucose Lactic Acid 1.1 Calcium Phosphorus Magnesium Total Bilirubin Direct Bilirubin Indirect Bilirubin AST ALT Alkaline Phosphatase B-Natriuretic Peptide 52 Total Protein Albumin 12/21/18 04:30 WBC RBC Hgb Hct MCV MCH MCHC RDW Plt Count MPV Neut % (Auto) Lymph % (Auto) [place] % (Auto) Eos % (Auto) Baso % (Auto) Neut # (Auto) Lymph # (Auto) [place] # (Auto) Eos # (Auto) Baso # (Auto) WBC Differential Differential Comment Sodium 139 Potassium 3.6 Chloride 105 Carbon Dioxide 24.7 Anion Gap 9 BUN 10 Creatinine 0.77 Estimated GFR 72 L Random Glucose 143 H Lactic Acid Calcium 7.8 L Phosphorus 2.9 Magnesium 1.8 Total Bilirubin 0.2 Direct Bilirubin Less than 0.1 Indirect Bilirubin 0.1 AST 14 L ALT 10 Alkaline Phosphatase 55 B-Natriuretic Peptide Total Protein 5.9 L Albumin 2.0 L Assessment and Plan - Assessment (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 //Abdominal pain -secondary to below, tolerable, continue p.o. home narcotics //Intractable N/V -we will try Zofran and Phenergan instead of Zofran and Compazine = 09/19 continues on Marinol. Patient is ketotic as seen on urinalysis yesterday. Will start on D5 half-normal saline with potassium. = 09/20. I have discussed with oncology and oncology will be adding Reglan and Ativan. = 09/22. Continue antiemetics. Improved with NG tube. Output of 1000 mL over the past day. Continue to monitor. //Sepsis //Suspected aspiration pneumonia //Hypoxemic respiratory failure = Tachypnea, tachycardia, aspiration pneumonia 09/21 with episode of vomiting, suspected aspiration. Shortness of breath. Chest x-ray with bilateral perihilar infiltrates, partially consolidative infiltrate in the left lower lobe personally visualized -Patient reported to have bowel movement overnight. Start on Zosyn for coverage of anaerobes, vancomycin for gram-positive coverage. Oxygen as needed. Duo nebs. D-dimer is elevated at 4.19, however patient is already on therapeutic anticoagulation. = Improving on IV antibiotics, nebs. Continue IV antibiotics. Monitor. //stage IV Ovarian CA - Recurrent. Following w/ Dr. Stoner, currently on chemo, CT Abd/Pelvis w/ extensive progression of disease w/ omental caking and peritoneal carcinomatosis , likely etiology for pt's severe pain at this time. = Continue management as per gynecology/oncology. //Hypokalemia. = Resolved //UTI: -Unlikely infection urine culture with mixed jennifer. Discharge Planning: Still with intractable nausea vomiting. pending camera prototyping engineer/onc clearance.
[2018-09-22] MEDS: Pantoprazole Inj 40 MG Vial IV.PUSH SCH (10:41)
[2018-09-22] MEDS: Metoprolol Tartrate 25 MG Tablet G-TUBE SCH ×2 (10:42→21:27)
[2018-09-22] MEDS: Vancomycin Inj 1,000 MG in Sodium Chlor 0.9% Inj 250 ML IV.SIG SCH (11:00)
--- NOTE | 2018-09-22 13:18 | P.PNPAL ---
Reason for Visit Reason for visit: a. To assist with evaluation and management of symptoms including: Dyspnea, nausea b. To assist medical decision maker(s) with: better understanding of current medical conditions; weighing benefits/burdens of medical treatment options; making medical treatment decisions. Subjective Subjective/Interval History: This is an 83 y/o female with recurrent ovarian cancer s/p hysterectomy and undergoing chemo who presented to the ER 09/17/18 for worsening LUQ abd pain and n/v. She is being treated currently for a UTI. She follows with Dr Stoner and is currently undergoing line 3 chemo; per oncology notes she had her 1st round doxorubicin 09/07/18. Prior she had some chemomtherapy with gemzar in [place] 01/2018 and subsequent treatments were delayed by severe left elbow bursitis requiring surgery. She is scheduled for another round doxorubicin next Oct. She had a recent hospitalization in [place] for similar symptoms as this admission and was treated for small bowel obstruciton. Imaging during her admisison in [place] also showed hernias. CT abd/pelvis done 09/17 during this admission shows omental caking and peritoneal carcinomatosis significantly developed as compared to PET 12/2017, no sign SBO. Per oncology note it is too soon to assess her response to treatment and they having her evaluated for a paracentesis. US today showed small amt ascites mostly in RUQ, probably adequate for diagnostic but not therapeutic paracentesis. Patient seen today for follow-up of symptom management of dyspnea and nausea, as well as discussion of goals for medical treatment. Patient remains on a 50% Ventimask secondary to aspiration pneumonia. Her dyspnea is mild to moderate, continuous, improved with oxygen mask, worsens with activity. She has had significant nausea and vomiting since admission and yesterday morning had a large emesis part of which was aspirated. Her nausea has improved with NG tube, which drained 1100 mL overnight. She is being followed by pulmonology who agrees with her current treatment plan of antibiotics and supplemental oxygenation. She is also being followed by oncology and was seen by Paris Thompson APRN today who has placed a consultation for hospice to evaluate. Per that note the patient would have to improve greatly to continue with treatment, gain back strength and the nausea and vomiting would have to resolve. It is believed that her tumor burden is contributing to her current symptoms of pain, nausea and vomiting. Oncology notes that any IV chemotherapy would be palliative and reiterates that her performance status would have to improve before restarting treatment. NG tube was placed yesterday due to the intractable vomiting and aspiration. It is clamped this morning to see if she tolerates or if she develops recurrent nausea and vomiting. CT of the abdomen and pelvis showed extensive progression of the disease with omental caking and peritoneal carcinomatosis which they feel is the likely etiology for the patient's severe pain at this time. . Family/Friend Interactions: 2 of her children are currently flying down from [place] to see her for support. We have held multiple conversations regarding her clinical status which has been somewhat unstable. Yesterday morning she was obtunded and unarousable, by afternoon she was sitting up talking. Today she has declined back to a 50% Ventimask but has her NG tube clamped. She has not had a bowel movement due to either ileus or blockage, unconfirmed by imaging done so far. Pending arrival of the family. . Advance Directives Living Will: Copy in medical record Health Care Surrogate: Copy in medical record Health Care Surrogate Name and Number: Delia Guy [phone] Objective Vital Signs: Vital Signs 09/21/18 15:08 09/21/18 16:00 09/21/18 20:00 Temperature 96.2 F L 98 F Pulse Rate 99 H 105 H 90 Respiratory Rate 16 23 22 Blood Pressure 107/65 108/69 Pulse Oximetry 98 97 09/21/18 21:25 09/21/18 21:41 09/22/18 00:00 Temperature 98 F Pulse Rate 89 100 H Respiratory Rate 17 18 Blood Pressure 132/57 L Pulse Oximetry 98 97 95 09/22/18 04:00 09/22/18 08:04 09/22/18 08:24 Temperature 97.6 F 97.6 F Pulse Rate 84 97 H 99 H Respiratory Rate 20 24 15 Blood Pressure 113/70 106/59 L Pulse Oximetry 96 96 96 09/22/18 12:12 Temperature 98 F Pulse Rate 94 H Respiratory Rate 28 H Blood Pressure 109/71 Pulse Oximetry 97 Intake & Output 09/21/18 09/22/18 09/22/18 18:59 06:59 18:59 Intake Total 2950 / 2950 1320 / 1320 Output Total 700 / 700 600 / 600 300 / 300 Balance 2250 / 2250 720 / 720 -300 / -300 Weight 156 lb 8.451 oz Intake: IV 2950 / 2950 1200 / 1200 KCl Inj 30 MEQ In D5W Inj 1,000 1400 / 1400 1000 / 1000 ML @ 100 mls/hr IV.CONT . Q10H9M GISSEL Rx#:[id number] Unasyn Inj 3 GM In NS Inj 100 100 / 100 ML @ 200 mls/hr IV.SIG Q6H GISSEL Rx#:[id number] Zosyn 4.5 GM Premix 4.5 gm In 200 / 200 200 / 200 100 ml @ 200 mls/hr IV.SIG Q6H GISSEL Rx#:[id number] NS Inj 1,000 ML @ 1000 mls/hr 1000 / 1000 IV.SIG BOLUS GISSEL Rx#:[id number] Vancomycin Inj 1,000 MG In NS 250 / 250 Inj 250 ML @ 250 mls/hr IV.SIG Q24H GISSEL Rx#:[id number] Oral 120 / 120 Output: Urine 200 / 200 300 / 300 Gastric Drainage 700 / 700 400 / 400 Left Nare Nasogastric Tube 700 / 700 400 / 400 Other: # Voids 2 # Incontinent Voids 2 # Urine Diapers 1 Date of Last Bowel Movement 09/21/18 09/21/18 # Bowel Movements 1 Physical Exam: CONSTITUTIONAL/GENERAL: This is an adequately nourished patient, awake in bed, in no acute distress. TUBES/LINES/DRAINS: Left subclavian port with IV fluid infusing. SKIN: Pale. No jaundice, rashes, or lesions. Ecchymoses on upper extremities. No wounds seen anteriorly. Skin temperature appropriate. Not diaphoretic. CARDIOVASCULAR: Regular rate and rhythm without murmurs, gallops, or rubs. No JVD. Peripheral pulses symmetric. RESPIRATORY/CHEST: Respirations symmetric, unlabored, coarse rhonchi throughout all lung cohen anteriorly, diminished at the bases. On 50% vent he mask. GASTROINTESTINAL: Abdomen soft, distended, + ventral hernia, mild diffuse TTP. No hepato-splenomegaly, or palpable masses. No guarding. Bowel sounds present. GENITOURINARY: Without palpable bladder distension. MUSCULOSKELETAL: Extremities without clubbing, cyanosis, or edema. No joint tenderness or effusion noted. No calf tenderness. No mottling or clubbing. Left ankle > right ankle NEUROLOGICAL: A and O x4. No focal deficits. PSYCHIATRIC: Mildly defiant and anxious. . Diagnostic Tests Laboratory: Laboratory Results - last 72 hr 09/20/18 09/20/18 09/21/18 03:30 03:30 04:35 WBC 5.0 RBC 3.31 L Hgb 9.6 L Hct 28.9 L MCV 87.3 MCH 28.9 MCHC 33.1 RDW 13.0 Plt Count 310 MPV 7.3 Neut % (Auto) 80.3 H Lymph % (Auto) 10.4 Perry % (Auto) 6.8 Eos % (Auto) 2.1 Baso % (Auto) 0.4 Neut # (Auto) 4.0 Lymph # (Auto) 0.5 L [place] # (Auto) 0.3 Eos # (Auto) 0.1 Baso # (Auto) 0.0 WBC Differential . Differential Comment Auto diff final D-Dimer Quant (PE/DVT) Puncture Site Patient Temperature O2 Saturation ABG pH ABG pCO2 ABG pO2 ABG HCO3 ABG O2 Content ABG Base Excess ABG Methemoglobin Demetrius Test Hemoglobin Carboxyhemoglobin O2 Delivery Device Liter Flow Critical Value Sodium 137 136 Potassium 3.4 L 3.8 Chloride 103 102 Carbon Dioxide 27.2 26.6 Anion Gap 7 7 BUN 6 L 4 L Creatinine 0.64 0.71 Estimated GFR 89 79 L Random Glucose 122 H 138 H Lactic Acid Calcium 8.2 L 8.4 L Phosphorus 2.5 2.3 L Magnesium 1.6 1.8 Total Bilirubin 0.2 Direct Bilirubin 0.1 Indirect Bilirubin 0.1 AST 19 ALT 9 L Alkaline Phosphatase 61 B-Natriuretic Peptide Total Protein 6.1 L D Albumin 2.3 L 2.5 L 09/21/18 09/21/18 09/21/18 05:35 06:41 06:47 WBC 7.5 RBC 4.12 Hgb 12.2 D Hct 35.6 MCV 86.3 MCH 29.7 MCHC 34.4 RDW 13.0 Plt Count 388 MPV 6.5 L Neut % (Auto) 91.9 H Lymph % (Auto) 4.1 L [place] % (Auto) 3.6 Eos % (Auto) 0.1 Baso % (Auto) 0.3 Neut # (Auto) 6.9 Lymph # (Auto) 0.3 L [place] # (Auto) 0.3 Eos # (Auto) 0.0 Baso # (Auto) 0.0 WBC Differential . Differential Comment Auto diff final D-Dimer Quant (PE/DVT) Puncture Site Right radial Patient Temperature 98.6 O2 Saturation 83 L* ABG pH 7.46 H ABG pCO2 34 L ABG pO2 49 L* ABG HCO3 24 ABG O2 Content 18.8 ABG Base Excess 0.9 ABG Methemoglobin 1.4 Demetrius Test Present Hemoglobin 16.3 H Carboxyhemoglobin 0.9 O2 Delivery Device simple mask Liter Flow 10.00 Critical Value Yes Sodium Potassium Chloride Carbon Dioxide Anion Gap BUN Creatinine Estimated GFR Random Glucose Lactic Acid 2.0 Calcium Phosphorus Magnesium Total Bilirubin Direct Bilirubin Indirect Bilirubin AST ALT Alkaline Phosphatase B-Natriuretic Peptide Total Protein Albumin 09/21/18 09/21/18 09/21/18 06:47 09:04 09:04 WBC RBC Hgb Hct MCV MCH MCHC RDW Plt Count MPV Neut % (Auto) Lymph % (Auto) [place] % (Auto) Eos % (Auto) Baso % (Auto) Neut # (Auto) Lymph # (Auto) [place] # (Auto) Eos # (Auto) Baso # (Auto) WBC Differential Differential Comment D-Dimer Quant (PE/DVT) 4.19 H Puncture Site Patient Temperature O2 Saturation ABG pH ABG pCO2 ABG pO2 ABG HCO3 ABG O2 Content ABG Base Excess ABG Methemoglobin Demetrius Test Hemoglobin Carboxyhemoglobin O2 Delivery Device Liter Flow Critical Value Sodium Potassium Chloride Carbon Dioxide Anion Gap BUN Creatinine Estimated GFR Random Glucose Lactic Acid 1.1 Calcium Phosphorus Magnesium Total Bilirubin Direct Bilirubin Indirect Bilirubin AST ALT Alkaline Phosphatase B-Natriuretic Peptide 52 Total Protein Albumin 09/22/18 09/22/18 04:30 04:30 WBC 5.9 RBC 2.86 L Hgb 8.6 L D Hct 24.8 L MCV 86.8 MCH 30.0 MCHC 34.5 RDW 12.9 Plt Count 260 D MPV 7.3 Neut % (Auto) 87.3 H Lymph % (Auto) 6.5 L [place] % (Auto) 6.2 Eos % (Auto) 0.0 Baso % (Auto) 0.0 Neut # (Auto) 5.1 Lymph # (Auto) 0.4 L [place] # (Auto) 0.4 Eos # (Auto) 0.0 Baso # (Auto) 0.0 WBC Differential . Differential Comment Auto diff final D-Dimer Quant (PE/DVT) Puncture Site Patient Temperature O2 Saturation ABG pH ABG pCO2 ABG pO2 ABG HCO3 ABG O2 Content ABG Base Excess ABG Methemoglobin Demetrius Test Hemoglobin Carboxyhemoglobin O2 Delivery Device Liter Flow Critical Value Sodium 139 Potassium 3.6 Chloride 105 Carbon Dioxide 24.7 Anion Gap 9 BUN 10 Creatinine 0.77 Estimated GFR 72 L Random Glucose 143 H Lactic Acid Calcium 7.8 L Phosphorus 2.9 Magnesium 1.8 Total Bilirubin 0.2 Direct Bilirubin Less than 0.1 Indirect Bilirubin 0.1 AST 14 L ALT 10 Alkaline Phosphatase 55 B-Natriuretic Peptide Total Protein 5.9 L Albumin 2.0 L Result Diagrams: 09/23/18 05:55 09/23/18 05:55 Microbiology: Microbiology 09/21/18 08:07 Aerobic Blood Culture - Preliminary Blood - Peripheral No growth in 1 day Anaerobic Blood Culture - Preliminary No growth in 1 day 09/21/18 06:40 Aerobic Blood Culture - Preliminary Blood - Peripheral No growth in 1 day Anaerobic Blood Culture - Preliminary No growth in 1 day 09/17/18 18:05 Urine Culture - Final Clean Catch Urine 50-100,000 cfu/mL mixed jennifer (probable contaminants) Imaging: ITS Impressions Abdomen/Pelvis CT 09/17/18 14:15 CONCLUSION: Since the patient's F-18 FDG PET/CT from 12/2017 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 Abdomen Ultrasound 09/18/18 00:00 CONCLUSION: Small amount of ascites, most prominent in the right upper abdominal quadrant. Volume is probably adequate for diagnostic tap but insufficient for therapeutic aspiration. Chest X-Ray 09/21/18 05:05 CONCLUSION: Bilateral perihilar infiltrates and partially consolidative infiltrate in the left lower lobe. Abdomen X-Ray 09/21/18 06:36 CONCLUSION: Nonspecific abdomen appearance. Assessment and Plan Pertinent Non-Medical Issues: Psychosocial: Pt originally from [place]. SHe and her significant other have been snowbirds for the last 18 years. She is . Has 4 children. 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 Spiritual: Sabianism, receiving pastoral care. Legal: Pt currently capacitated to make healthcare decisions. In the event she becomes incapacitated she has designated her daughter Delia as her HCS. Ethical issues impacting care: none Important Contacts: HCS daughter Delia - [phone] Prognosis: 83 y/o female with recurrent ovarian ca just completed 1st round of line 3 treatment. She is having abd pain and n/v. Her current chemotherapy regimen is considered to be palliative in nature. Her chemotherapy previously was delayed after an elbow infections. It is likely she will continue to experience setbacks and decline. Given the extent of her malignancy, prognosis is poor and she is hospice appropriate should her goals be in line with comfort. Code Status: No Code DNR Plan: - LEGAL DECISION MAKER - Pt currently capacitated to make healthcare decisions. In the event she becomes incapacitated, she has designated her daughter Delia as her HCS - CODE STATUS- no code/dnr - GOALS - Pt has good insight. Goals aggressive short of no code/DNR. SHe completed a living will and is adamant that she would never want a feeding tube. She would like to continue to attempt palliative chemo if possible. SHe verbalizes understanding that her cancer is progressing and chemotherapy regimen is palliative and not curative, "I dont' know if I can bounce back from this." - SYMPTOMS - * Dyspnea: Suspected to have aspirated. Progressively more hypoxic with the likelihood that she has also experienced a pulmonary embolus. D-dimer is elevated, she became acutely hypoxic, tachypneic and tachycardic. She is currently on Eliquis, however does have metastatic ovarian cancer. Patient had made herself a DO NOT INTUBATE, DO NOT RESUSCITATE status and family is supportive of that decision. She is now on antibiotics for aspiration pneumonia. * Nausea: NG tube drained 1100 cc overnight but is currently clamped to see if she tolerates prior to removing it. She is able to have a full liquid diet to evaluate control of her nausea. Primary medicine plans to try Zofran and Phenergan instead of Zofran and Compazine which was ineffective. In addition she is also receiving Marinol, Ativan and metoclopramide. Per oncology her nausea will have to be resolved, her strength restored and her performance status improved before they would even consider resuming chemotherapy which they have stated they think is unlikely. They recommended a hospice consult which was done and patient is considering her options, but at this point has not made a decision. - Palliative care will continue to follow during hospital course as condition evolves, to assist patient/decision-maker with understanding of medical conditions, weighing benefits/burdens of treatment options, for clarification of goals of treatment. Additionally will assist with any symptoms of palliative concern Attestation Attestation: To help prompt me to consider important information that might be impacting today's encounter and assessment, information from prior notes written by myself or my colleagues may have been "brought forward" into today's note. My signature on this note, however, is an attestation that I personally performed the exam, history, and/or decision-making noted today, and, unless otherwise indicated, the interactions with patient, family, and staff as well as the review of records all occurred today. I also attest that the listed assessment and stated plan reflect my best clinical judgment today based on the combination of historical information, prior notes, and today's exam/ interactions. When time spent is documented, it refers only to time spent today by the signer, or if indicated, combined time spent today by collaborating physician/nurse practitioner. .
--- NOTE | 2018-09-22 16:11 | P.PN ---
Subjective Interval history: alert no sob at rest ngt to suction Physical Exam Vital signs: Vital Signs 09/21/18 20:00 09/21/18 21:25 09/21/18 21:41 Temperature 98 F Pulse Rate 90 89 Respiratory Rate 22 17 Blood Pressure 108/69 Pulse Oximetry 97 98 97 09/22/18 00:00 09/22/18 04:00 09/22/18 08:04 Temperature 98 F 97.6 F 97.6 F Pulse Rate 100 H 84 97 H Respiratory Rate 18 20 24 Blood Pressure 132/57 L 113/70 106/59 L Pulse Oximetry 95 96 96 09/22/18 08:24 09/22/18 12:12 09/22/18 15:15 Temperature 98 F Pulse Rate 99 H 94 H 93 H Respiratory Rate 15 28 H 20 Blood Pressure 109/71 Pulse Oximetry 96 97 09/22/18 15:16 Temperature Pulse Rate Respiratory Rate Blood Pressure Pulse Oximetry 93 L Intake & Output 09/21/18 09/22/18 09/22/18 18:59 06:59 18:59 Intake Total 2950 / 2950 1320 / 1320 Output Total 700 / 700 600 / 600 300 / 300 Balance 2250 / 2250 720 / 720 -300 / -300 Weight 71 kg Intake: IV 2950 / 2950 1200 / 1200 KCl Inj 30 MEQ In D5W Inj 1,000 1400 / 1400 1000 / 1000 ML @ 100 mls/hr IV.CONT . Q10H9M GISSEL Rx#:[id number] Unasyn Inj 3 GM In NS Inj 100 100 / 100 ML @ 200 mls/hr IV.SIG Q6H GISSEL Rx#:[id number] Zosyn 4.5 GM Premix 4.5 gm In 200 / 200 200 / 200 100 ml @ 200 mls/hr IV.SIG Q6H GISSEL Rx#:[id number] NS Inj 1,000 ML @ 1000 mls/hr 1000 / 1000 IV.SIG BOLUS GISSEL Rx#:[id number] Vancomycin Inj 1,000 MG In NS 250 / 250 Inj 250 ML @ 250 mls/hr IV.SIG Q24H GISSEL Rx#:[id number] Oral 120 / 120 Output: Urine 200 / 200 300 / 300 Gastric Drainage 700 / 700 400 / 400 Left Nare Nasogastric Tube 700 / 700 400 / 400 Other: # Voids 2 # Incontinent Voids 2 # Urine Diapers 1 Date of Last Bowel Movement 09/21/18 09/21/18 # Bowel Movements 1 Narrative: GENERAL: Patient sitting up in chair. Awake. Appears comfortable. oriented x3. SKIN: Warm and dry. HEAD: Normocephalic. EYES: No scleral icterus. No injection or drainage. NECK: Supple, trachea midline. No JVD. CARDIOVASCULAR: Regular rate and rhythm without murmurs, gallops, or rubs. RESPIRATORY: Breath sounds with crackles bilaterally. No accessory muscle use. GASTROINTESTINAL: Abdomen soft, non-tender, nondistended. MUSCULOSKELETAL: No cyanosis, trace edema bilaterally. BACK: Nontender without obvious deformity. No CVA tenderness. - Urinary Catheter Management Straight Cath placed during this visit: no Results - Labs CBC & Chem 7: 09/22/18 04:30 09/22/18 04:30 Laboratory Results - last 24 hr 09/22/18 09/22/18 04:30 04:30 WBC 5.9 RBC 2.86 L Hgb 8.6 L D Hct 24.8 L MCV 86.8 MCH 30.0 MCHC 34.5 RDW 12.9 Plt Count 260 D MPV 7.3 Neut % (Auto) 87.3 H Lymph % (Auto) 6.5 L [place] % (Auto) 6.2 Eos % (Auto) 0.0 Baso % (Auto) 0.0 Neut # (Auto) 5.1 Lymph # (Auto) 0.4 L [place] # (Auto) 0.4 Eos # (Auto) 0.0 Baso # (Auto) 0.0 WBC Differential . Differential Comment Auto diff final Sodium 139 Potassium 3.6 Chloride 105 Carbon Dioxide 24.7 Anion Gap 9 BUN 10 Creatinine 0.77 Estimated GFR 72 L Random Glucose 143 H Calcium 7.8 L Phosphorus 2.9 Magnesium 1.8 Total Bilirubin 0.2 Direct Bilirubin Less than 0.1 Indirect Bilirubin 0.1 AST 14 L ALT 10 Alkaline Phosphatase 55 Total Protein 5.9 L Albumin 2.0 L Microbiology 09/21/18 08:07 Blood - Peripheral Aerobic Blood Culture - Preliminary No growth in 1 day 09/21/18 08:07 Blood - Peripheral Anaerobic Blood Culture - Preliminary No growth in 1 day 09/21/18 06:40 Blood - Peripheral Aerobic Blood Culture - Preliminary No growth in 1 day 12/20/18 06:40 Blood - Peripheral Anaerobic Blood Culture - Preliminary No growth in 1 day Assessment and Plan - Plan impression/plan pna/aspiration n/v improved plan o2 as needed antibx pulm toilet f/u cxray
[2018-09-22] MEDS: Gabapentin 300 MG Capsule PO SCH (20:03)
[2018-09-22] MEDS ORDERED: Morphine Sulfate Inj 2 MG/ML Vial IV.PUSH PRN (22:55)
[2018-09-23] MEDS: WATER IV.CONT SCH ×2 (01:06)
[2018-09-23] MEDS: DEXTROSE 5% IV.CONT SCH ×2 (01:06)
[2018-09-23] MEDS: POTASSIUM CHLORIDE IV.CONT SCH ×2 (01:06)
[2018-09-23] MEDS: Vancomycin Inj 1,000 MG in Sodium Chlor 0.9% Inj 250 ML IV.SIG SCH (03:48)
[2018-09-23] MEDS: Piperacil/Tazo 4.5 GM Premix 4.5 GM/100 ML BAG IV.SIG SCH ×2 (03:48→13:12)
[2018-09-23 07:02] LABS: Baso % (Auto) 0.3 % (0.0-2.0); Eos # (Auto) 0.1 th/mm3 (0.0-0.4); Eos % (Auto) 1.7 % (0.0-4.0); Hematocrit 25.7 % (35.0-46.0); Hemoglobin 8.8 gm/dL (11.6-15.3); Lymph # (Auto) 0.6 th/mm3 (1.0-4.8); Lymph % (Auto) 10.7 % (9.0-44.0); Mean Corpuscular HGB Conc 34.3 % (32.0-36.0); Mean Corpuscular Hemoglobin 29.6 pg (27.0-34.0); Mean Corpuscular Volume 86.3 fL (80.0-100.0); Mean Platelet Volume 7.2 fL (7.0-11.0); Mono # (Auto) 0.4 th/mm3 (0.0-0.9); Mono % (Auto) 7.2 % (0.0-8.0); Neut # (Auto) 4.2 th/mm3 (1.8-7.7); Neut % (Auto) 80.1 % (16.0-70.0); Platelet Count 300 th/mm3 (150-450); Red Blood Count 2.98 mil/mm3 (4.00-5.30); White Blood Count 5.3 th/mm3 (4.0-11.0)
[2018-09-23 07:27] LABS: Albumin 2.1 g/dL (3.4-5.0); Calcium 8.2 mg/dL (8.5-10.1); Magnesium 1.9 mg/dL (1.5-2.5); Phosphorus 2.6 mg/dL (2.5-4.9)
[2018-09-23 07:30] LABS: Total Protein 6.2 g/dL (6.4-8.2)
--- NOTE | 2018-09-23 09:34 | P.PNONC ---
Subjective Interval history: Patient lying in bed awake and alert. Her daughter is at the bedside. She complains of throat discomfort with NG tube in place. She states her throat feels like there is hot coals in it and she does not know how much longer she will be able to tolerate the NG tube. This is still hooked up to intermittent wall suction and appears to be suctioning large amounts of bile colored fluid. It is been reported once clamped patient started dry heaving. She has questions in regards to hospice and the family would like to meet with hospice while the patient is alert. I have asked the nurse to place a call to hospice to make them aware that the family has arrived from [place] and would like to pursue a family meeting. Objective Vital Signs/Intake & Output: Vital Signs 09/22/18 12:00 09/22/18 12:12 09/22/18 15:15 Temperature 98 F Pulse Rate 93 H 94 H 93 H Respiratory Rate 28 H 20 Blood Pressure 109/71 Pulse Oximetry 97 09/22/18 15:16 09/22/18 16:00 09/22/18 17:09 Temperature 97.4 F L Pulse Rate 94 H Respiratory Rate 20 Blood Pressure 119/68 Pulse Oximetry 93 L 94 L 95 09/22/18 20:00 09/22/18 21:04 09/22/18 21:05 Temperature 98.1 F Pulse Rate 100 H 114 H Respiratory Rate 18 18 Blood Pressure 137/85 Pulse Oximetry 95 95 09/23/18 00:00 09/23/18 03:34 09/23/18 04:00 Temperature 98.6 F 98.3 F Pulse Rate 96 H 93 H 92 H Respiratory Rate 16 17 16 Blood Pressure 140/83 127/72 Pulse Oximetry 95 94 L Intake & Output 09/22/18 09/23/18 09/23/18 18:59 06:59 18:59 Intake Total 450 / 450 2600 / 2600 Output Total 300 / 300 1300 / 1300 Balance 150 / 150 1300 / 1300 Weight 71.3 kg Intake: IV 450 / 450 2480 / 2480 KCl Inj 30 MEQ In D5W Inj 1,000 2030 / 2030 ML @ 100 mls/hr IV.CONT . Q10H9M [facility] Rx#:[id number] Zosyn 4.5 GM Premix 4.5 gm In 200 / 200 200 / 200 100 ml @ 200 mls/hr IV.SIG Q6H [facility] Rx#:[id number] Vancomycin Inj 1,000 MG In NS 250 / 250 250 / 250 Inj 250 ML @ 250 mls/hr IV.SIG Q18H [facility] Rx#:[id number] Oral 120 / 120 Output: Urine 300 / 300 900 / 900 Gastric Drainage 400 / 400 Left Nare Nasogastric Tube 400 / 400 Other: Date of Last Bowel Movement 09/21/18 Result Diagrams: 09/23/18 05:55 09/23/18 05:55 Laboratory Results: Laboratory Results - last 24 hr 09/23/18 09/23/18 05:55 05:55 WBC 5.3 RBC 2.98 L Hgb 8.8 L Hct 25.7 L MCV 86.3 MCH 29.6 MCHC 34.3 RDW 13.0 Plt Count 300 MPV 7.2 Neut % (Auto) 80.1 H Lymph % (Auto) 10.7 [place] % (Auto) 7.2 Eos % (Auto) 1.7 Baso % (Auto) 0.3 Neut # (Auto) 4.2 Lymph # (Auto) 0.6 L [place] # (Auto) 0.4 Eos # (Auto) 0.1 Baso # (Auto) 0.0 WBC Differential . Differential Comment Auto diff final Sodium 139 Potassium 4.0 Chloride 105 Carbon Dioxide 27.0 Anion Gap 7 BUN 10 Creatinine 0.86 Estimated GFR 63 L Random Glucose 104 Calcium 8.2 L Phosphorus 2.6 Magnesium 1.9 Total Bilirubin 0.2 Direct Bilirubin 0.1 Indirect Bilirubin 0.1 AST 16 ALT 10 Alkaline Phosphatase 59 Total Protein 6.2 L Albumin 2.1 L Culture Results: Microbiology 09/21/18 08:07 Aerobic Blood Culture - Preliminary Blood - Peripheral No growth in 1 day Anaerobic Blood Culture - Preliminary No growth in 1 day 09/21/18 06:40 Aerobic Blood Culture - Preliminary Blood - Peripheral No growth in 1 day Anaerobic Blood Culture - Preliminary No growth in 1 day Medications: Active Medications Generic Name Dose Route Start Last Admin Trade Name Freq PRN Reason Stop Dose Admin Hydrocodone Bitart/Acetaminophen 1 tab 09/17/18 19:07 09/18/18 19:52 [place] 10/325 PO 1 tab Q4H PRN Administration PAIN 3-5 Albuterol 1 ampul 09/21/18 05:04 09/21/18 05:24 Duoneb Neb (Prn) NEB 1 ampul Q4HR NEB PRN Administration WHEEZING Albuterol 1 ampul 09/21/18 10:00 09/23/18 09:18 Duoneb Neb (Anel) NEB 1 ampul Q6HR NEB ANEL Administration Apixaban 5 mg 09/18/18 09:00 09/22/18 21:27 Eliquis PO 5 mg BID ANEL Administration Benzocaine/Menthol 1 lozenge 09/21/18 23:42 09/23/18 00:19 Chloraseptic Sore Throat Lozenge BUCCAL 1 lozenge Q2H PRN Administration SORE THROAT Dronabinol 5 mg 09/20/18 11:00 09/22/18 19:58 Marinol PO Not Given BID@1100,1600 ANEL Gabapentin 600 mg 09/20/18 18:00 09/22/18 20:03 Neurontin PO 600 mg QPM ANEL Administration Potassium Chloride 30 meq/ 1,015 mls @ 100 mls/hr 09/19/18 12:00 09/23/18 01: 06 Dextrose IV.CONT 100 mls/hr .Q10H9M ANEL Administration Piperacillin/Tazobactam/Dextrose 4.5 gm in 100 mls @ 200 mls/hr 09/21/18 10: 00 09/23/18 05:08 Zosyn 4.5 Gm Premix IV.SIG Infused Q6H [facility] Infusion Vancomycin HCl 1,000 mg/ 250 mls @ 250 mls/hr 09/22/18 09:00 09/23/18 05:08 Sodium Chloride IV.SIG Infused Q18H [facility] Lorazepam 0.5 mg 09/20/18 15:43 09/20/18 20:42 Ativan PO 0.5 mg Q6H PRN Administration NAUSEA OR VOMITING Metoclopramide HCl 5 mg 09/20/18 16:00 09/22/18 23:27 Reglan Inj IV.PUSH 5 mg Q8H ANEL Administration Protocol Metoprolol Tartrate 25 mg 09/21/18 09:45 09/22/18 21:27 Lopressor G-TUBE 25 mg BID ANEL Administration Morphine Sulfate 2 mg 09/22/18 22:55 09/22/18 23:28 Morphine Inj IV.PUSH 2 mg Q3H PRN Administration PAIN SCALE 1 TO 10 Ondansetron HCl 4 mg 09/17/18 19:05 09/22/18 21:26 Zofran Inj IV.PUSH 4 mg Q6H PRN Administration NAUSEA OR VOMITING Padimate O 1 applicatio 09/18/18 07:58 09/18/18 11:06 Chapstick TOPICAL 1 applicatio UNSCH PRN Administration CHAPPED LIPS Pantoprazole Sodium 40 mg 09/18/18 08:00 09/22/18 10:41 Protonix Inj IV.PUSH 40 mg Q24H ANEL Administration Prochlorperazine Maleate 5 mg 09/20/18 08:06 09/20/18 16:26 Compazine PO 5 mg Q6H PRN Administration NAUSEA OR VOMITING Senna/Docusate Sodium 1 tab 09/17/18 21:00 09/22/18 21:35 Yulissa-Colace PO Not Given BID ANEL Sodium Chloride 2 ml 09/17/18 21:00 09/22/18 21:27 Ns Flush IV.FLUSH 2 ml BID ANEL Administration Sucralfate 1 gm 09/19/18 12:00 09/22/18 21:27 Carafate Liq PO 1 gm ACHS ANEL Administration Throat Lozenges 2 spray 09/21/18 23:42 09/22/18 00:01 Chloraseptic [place] OROPHARYNG 2 spray Q2H PRN Administration throat pain Objective Remarks: GENERAL: Ill-appearing elderly female patient, in no acute distress. SKIN: Pale, warm and dry. HEAD: Normocephalic. EYES: No scleral icterus. No injection or drainage. NECK: Supple, trachea midline. CARDIOVASCULAR: Regular rate and rhythm without murmurs. RESPIRATORY: Breath sounds equal bilaterally. Nonlabored, O2 via nasal cannula. GASTROINTESTINAL: NG tube to wall suction, large amounts of bile. EXTREMITIES: No cyanosis, or edema. MUSCULOSKELETAL: Adequate muscle tone. NEUROLOGICAL: No obvious focal deficit. Awake, alert, and oriented x3. PSYCHIATRIC: Appropriate mood and affect; insight and judgment normal. Assessment/Plan (1) Ovarian ca Code(s): C56.9 - Malignant neoplasm of unspecified ovary Status: Chronic (2) UTI (urinary tract infection) Code(s): N39.0 - Urinary tract infection, site not specified Status: Acute (3) Intractable abdominal pain Code(s): R10.9 - Unspecified abdominal pain Status: Acute (4) Nausea & vomiting Code(s): R11.2 - Nausea with vomiting, unspecified Status: Acute - Plan tumor burden contributing to current symptoms of pain, nausea and vomiting Continue supportive care increase Marinol to 5 mg BID IV hydration antiemetics Palliative care following, PT DNR PT/OT will add Compazine 5mg Q 8 hours prn/ nausea and vomiting, in hopes to get better control over N/V patient wishes to continue with treatment once discharged, will continue with outpt labs and IV hydration. 09/21/18 patient acutely ill, lethargic acute event this morning, patient with probable aspiration, c/o SOA and tachypneic CXR shown pneumonia elevated D dimer, on [facility] ABX, non-rebreather NG tube to LIWS Discussed with Dr. Stoner Palliative Care following patient's daughter notified, family to make arrangements to travel to [place] patient DNR/DNI 09/22/19 patient improved overnight family flying into [facility] patient wishes to talk with Hospice about their services unsure if resting bowel for a few days will resolve N/V as abd Xray does not show obvious obstruction continue supportive care, any IV chemotherapy is palliative and patients performance status would have to improve before restarting treatment ABX for pneumonia coverage seen by pulmonology, thank you for input Palliative Care following, we hare thankful for their care 09/23/2018: Patient is alert and oriented. Complains of discomfort from the NG tube. Unable to tolerate it being clamped, as she started dry heaving. She has many questions in regards to hospice. Her family has arrived from [place]. They are awaiting a family meeting with hospice. I have asked the nurse to call hospice to notify them that the family has arrived from [place] and would like to have a meeting. Patient unable to tolerate NG tube being clamped, continue with wall suction for comfort. Continue pain management for throat discomfort related to NG tube.
[2018-09-23] MEDS: Pantoprazole Inj 40 MG Vial IV.PUSH SCH (09:44)
[2018-09-23] MEDS: Metoprolol Tartrate 25 MG Tablet G-TUBE SCH (10:10)
[2018-09-23] MEDS: Senna/Docusate Sodium 8.6/50 MG Tablet PO SCH (10:10)
[2018-09-23] MEDS: Sucralfate Liq 1 GM/10 ML UDC PO SCH ×2 (10:10→12:00)
--- NOTE | 2018-09-23 11:39 | P.PN ---
Subjective Interval history: Follow-up intractable nausea and vomiting/history of ovarian cancer/aspiration pneumonia? September 23, 2018-patient seen and examined, complains of throat discomfort. NG tube with high output. Daughter by the bedside and would like to meet with hospice today for possible discharge. Patient is currently n.p.o. Physical Exam Vital signs: Vital Signs 09/22/18 12:00 09/22/18 12:12 09/22/18 15:15 Temperature 98 F Pulse Rate 93 H 94 H 93 H Respiratory Rate 28 H 20 Blood Pressure 109/71 Pulse Oximetry 97 09/22/18 15:16 09/22/18 16:00 09/22/18 17:09 Temperature 97.4 F L Pulse Rate 94 H Respiratory Rate 20 Blood Pressure 119/68 Pulse Oximetry 93 L 94 L 95 09/22/18 20:00 09/22/18 21:04 09/22/18 21:05 Temperature 98.1 F Pulse Rate 100 H 114 H Respiratory Rate 18 18 Blood Pressure 137/85 Pulse Oximetry 95 95 09/23/18 00:00 09/23/18 03:34 09/23/18 04:00 Temperature 98.6 F 98.3 F Pulse Rate 96 H 93 H 92 H Respiratory Rate 16 17 16 Blood Pressure 140/83 127/72 Pulse Oximetry 95 94 L 09/23/18 09:20 Temperature Pulse Rate 94 H Respiratory Rate 14 Blood Pressure Pulse Oximetry 95 Intake & Output 09/22/18 09/23/18 09/23/18 18:59 06:59 18:59 Intake Total 450 / 450 2600 / 2600 Output Total 300 / 300 1300 / 1300 Balance 150 / 150 1300 / 1300 Weight 71.3 kg Intake: IV 450 / 450 2480 / 2480 KCl Inj 30 MEQ In D5W Inj 1,000 2030 / 2030 ML @ 100 mls/hr IV.CONT . Q10H9M [facility] Rx#:[id number] Zosyn 4.5 GM Premix 4.5 gm In 200 / 200 200 / 200 100 ml @ 200 mls/hr IV.SIG Q6H [facility] Rx#:[id number] Vancomycin Inj 1,000 MG In NS 250 / 250 250 / 250 Inj 250 ML @ 250 mls/hr IV.SIG Q18H [facility] Rx#:[id number] Oral 120 / 120 Output: Urine 300 / 300 900 / 900 Gastric Drainage 400 / 400 Left Nare Nasogastric Tube 400 / 400 Other: Date of Last Bowel Movement 09/21/18 Narrative: GENERAL: NAD with NG tube in place SKIN: Warm and dry. HEAD: Atraumatic. Normocephalic. EYES: Pupils equal and round. No scleral icterus. No injection or drainage. ENT: No nasal bleeding or discharge. Mucous membranes pink and moist. NECK: Trachea midline. No JVD. CARDIOVASCULAR: Regular rate and rhythm. RESPIRATORY: No accessory muscle use. Clear to auscultation. Breath sounds equal bilaterally. GASTROINTESTINAL: Abdomen soft, non-tender, nondistended. Hepatic and splenic margins not palpable. Hypoactive bowel sounds MUSCULOSKELETAL: Extremities without clubbing, cyanosis, or edema. No obvious deformities. NEUROLOGICAL: Awake and alert. No obvious cranial nerve deficits. Motor grossly within normal limits. Five out of 5 muscle strength in the arms and legs. Normal speech. PSYCHIATRIC: Appropriate mood and affect; insight and judgment normal. - Urinary Catheter Management Straight Cath placed during this visit: no Results - Labs CBC & Chem 7: 09/23/18 05:55 09/23/18 05:55 Laboratory Results - last 24 hr 09/23/18 09/23/18 05:55 05:55 WBC 5.3 RBC 2.98 L Hgb 8.8 L Hct 25.7 L MCV 86.3 MCH 29.6 MCHC 34.3 RDW 13.0 Plt Count 300 MPV 7.2 Neut % (Auto) 80.1 H Lymph % (Auto) 10.7 [place] % (Auto) 7.2 Eos % (Auto) 1.7 Baso % (Auto) 0.3 Neut # (Auto) 4.2 Lymph # (Auto) 0.6 L [place] # (Auto) 0.4 Eos # (Auto) 0.1 Baso # (Auto) 0.0 WBC Differential . Differential Comment Auto diff final Sodium 139 Potassium 4.0 Chloride 105 Carbon Dioxide 27.0 Anion Gap 7 BUN 10 Creatinine 0.86 Estimated GFR 63 L Random Glucose 104 Calcium 8.2 L Phosphorus 2.6 Magnesium 1.9 Total Bilirubin 0.2 Direct Bilirubin 0.1 Indirect Bilirubin 0.1 AST 16 ALT 10 Alkaline Phosphatase 59 Total Protein 6.2 L Albumin 2.1 L Microbiology 09/21/18 08:07 Blood - Peripheral Aerobic Blood Culture - Preliminary No growth in 2 days 09/21/18 08:07 Blood - Peripheral Anaerobic Blood Culture - Preliminary No growth in 2 days 09/21/18 06:40 Blood - Peripheral Aerobic Blood Culture - Preliminary No growth in 2 days 09/21/18 06:40 Blood - Peripheral Anaerobic Blood Culture - Preliminary No growth in 2 days - Procedures None Assessment and Plan - Assessment (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 Code(s): C79.89 - Secondary malignant neoplasm of other specified sites Status : Acute (2) Ovarian ca Code(s): C56.9 - Malignant neoplasm of unspecified ovary Status: Chronic (3) Intractable abdominal pain Code(s): R10.9 - Unspecified abdominal pain Status: Acute - Plan 83-year-old female with Abdominal pain Intractable nausea vomiting NG tube in place, continue with wall suction Currently n.p.o., continue with D5 half-normal saline Continue current antiemetics including Zofran and Compazine Suspect aspiration pneumonia Sepsis-resolved Currently on Zosyn and vancomycin pending culture report Hypoxic respiratory failure Resolved Maintain oxygen saturation above 92%, continue with DuoNeb as needed History of stage IV ovarian cancer Continue current management per [employer] [facility] However secondary to patient with intractable nausea and vomiting, and at the request of family, awaiting for hospice possible today 09/23/18 Abnormal UA Urine culture negative Hypokalemia Resolved DVT prophylaxis: Bilateral SCDs
--- NOTE | 2018-09-23 11:54 | P.PN ---
Subjective Interval history: alert no sob o2 sat 95% RA Physical Exam Vital signs: Vital Signs 09/22/18 12:00 09/22/18 12:12 09/22/18 15:15 Temperature 98 F Pulse Rate 93 H 94 H 93 H Respiratory Rate 28 H 20 Blood Pressure 109/71 Pulse Oximetry 97 09/22/18 15:16 09/22/18 16:00 09/22/18 17:09 Temperature 97.4 F L Pulse Rate 94 H Respiratory Rate 20 Blood Pressure 119/68 Pulse Oximetry 93 L 94 L 95 09/22/18 20:00 09/22/18 21:04 09/22/18 21:05 Temperature 98.1 F Pulse Rate 100 H 114 H Respiratory Rate 18 18 Blood Pressure 137/85 Pulse Oximetry 95 95 09/23/18 00:00 09/23/18 03:34 09/23/18 04:00 Temperature 98.6 F 98.3 F Pulse Rate 96 H 93 H 92 H Respiratory Rate 16 17 16 Blood Pressure 140/83 127/72 Pulse Oximetry 95 94 L 09/23/18 09:20 Temperature Pulse Rate 94 H Respiratory Rate 14 Blood Pressure Pulse Oximetry 95 Intake & Output 09/22/18 09/23/18 09/23/18 18:59 06:59 18:59 Intake Total 450 / 450 2600 / 2600 Output Total 300 / 300 1300 / 1300 Balance 150 / 150 1300 / 1300 Weight 71.3 kg Intake: IV 450 / 450 2480 / 2480 KCl Inj 30 MEQ In D5W Inj 1,000 2030 / 2030 ML @ 100 mls/hr IV.CONT . Q10H9M [facility] Rx#:[id number] Zosyn 4.5 GM Premix 4.5 gm In 200 / 200 200 / 200 100 ml @ 200 mls/hr IV.SIG Q6H [facility] Rx#:[id number] Vancomycin Inj 1,000 MG In NS 250 / 250 250 / 250 Inj 250 ML @ 250 mls/hr IV.SIG Q18H [facility] Rx#:[id number] Oral 120 / 120 Output: Urine 300 / 300 900 / 900 Gastric Drainage 400 / 400 Left Nare Nasogastric Tube 400 / 400 Other: Date of Last Bowel Movement 09/21/18 Narrative: GENERAL: NAD with NG tube in place SKIN: Warm and dry. HEAD: Atraumatic. Normocephalic. EYES: Pupils equal and round. No scleral icterus. No injection or drainage. ENT: No nasal bleeding or discharge. Mucous membranes pink and moist. NECK: Trachea midline. No JVD. CARDIOVASCULAR: Regular rate and rhythm. RESPIRATORY: No accessory muscle use. Clear to auscultation. Breath sounds equal bilaterally. GASTROINTESTINAL: Abdomen soft, non-tender, nondistended. Hepatic and splenic margins not palpable. Hypoactive bowel sounds MUSCULOSKELETAL: Extremities without clubbing, cyanosis, or edema. No obvious deformities. NEUROLOGICAL: Awake and alert. No obvious cranial nerve deficits. Motor grossly within normal limits. Five out of 5 muscle strength in the arms and legs. Normal speech. PSYCHIATRIC: Appropriate mood and affect; insight and judgment normal. - Urinary Catheter Management Straight Cath placed during this visit: no Results - Labs CBC & Chem 7: 09/23/18 05:55 09/23/18 05:55 Laboratory Results - last 24 hr 09/23/18 09/23/18 05:55 05:55 WBC 5.3 RBC 2.98 L Hgb 8.8 L Hct 25.7 L MCV 86.3 MCH 29.6 MCHC 34.3 RDW 13.0 Plt Count 300 MPV 7.2 Neut % (Auto) 80.1 H Lymph % (Auto) 10.7 [place] % (Auto) 7.2 Eos % (Auto) 1.7 Baso % (Auto) 0.3 Neut # (Auto) 4.2 Lymph # (Auto) 0.6 L [place] # (Auto) 0.4 Eos # (Auto) 0.1 Baso # (Auto) 0.0 WBC Differential . Differential Comment Auto diff final Sodium 139 Potassium 4.0 Chloride 105 Carbon Dioxide 27.0 Anion Gap 7 BUN 10 Creatinine 0.86 Estimated GFR 63 L Random Glucose 104 Calcium 8.2 L Phosphorus 2.6 Magnesium 1.9 Total Bilirubin 0.2 Direct Bilirubin 0.1 Indirect Bilirubin 0.1 AST 16 ALT 10 Alkaline Phosphatase 59 Total Protein 6.2 L Albumin 2.1 L Microbiology 09/21/18 08:07 Blood - Peripheral Aerobic Blood Culture - Preliminary No growth in 2 days 09/21/18 08:07 Blood - Peripheral Anaerobic Blood Culture - Preliminary No growth in 2 days 09/21/18 06:40 Blood - Peripheral Aerobic Blood Culture - Preliminary No growth in 2 days 09/21/18 06:40 Blood - Peripheral Anaerobic Blood Culture - Preliminary No growth in 2 days - Procedures None Assessment and Plan - Plan impression/plan pna/aspiration n/v improved plan o2 as needed antibx pulm toilet f/u cxray
--- NOTE | 2018-09-23 14:13 | P.DS ---
Date of admission: 09/21/18 09:39 Primary care physician: Angelica Stoner MD Brief History from admission: This is an 83-year-old female with a PMH of Recurrent Ovarian CA who presented to the ER w/ complaints of abdominal pain, nausea and vomiting x2-3 days. Abdominal pain is generalized, severe, constant, 10/10, non-radiating, associated w/ several episodes of nausea/vomiting, unable to take PO due to symptoms. Follows w/ Dr. Stoner, states last chemo Sep 06, scheduled for another round in October. Denies fever, chills, diarrhea or sick contacts. On arrival, BP 128/80, HR 111, O2 sat 97% Afebrile. CBC essentially unremarkable. Chemistry unremarkable except for GFR 67. UA positive for UTI. 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 Status: Acute (2) Ovarian ca Status: Chronic (3) Intractable abdominal pain Status: Acute DS: Summary Hospital Course: Prior to discharge to hospice, patient was treated for: Abdominal pain Intractable nausea vomiting NG tube in place, continue with wall suction Currently n.p.o., continue with D5 half-normal saline Continue current antiemetics including Zofran and Compazine Suspect aspiration pneumonia Sepsis-resolved Currently on Zosyn and vancomycin pending culture report Hypoxic respiratory failure Resolved Maintain oxygen saturation above 92%, continue with DuoNeb as needed History of stage IV ovarian cancer Continue current management per [facility] However secondary to patient with intractable nausea and vomiting, and at the request of family, awaiting for hospice possible today 09/23/18 Abnormal UA Urine culture negative Hypokalemia Resolved DVT prophylaxis: Bilateral SCDs - Time Spent with Patient Total time spent providing and/or coordinating discharge services: Greater than 30 minutes - Quality: VTE Deep Vein Thrombosis/Pulmonary Embolism Present on Admission: No Exam Vital signs: Vital Signs 09/22/18 15:15 09/22/18 15:16 09/22/18 16:00 Temperature 97.4 F L Pulse Rate 93 H 94 H Respiratory Rate 20 20 Blood Pressure 119/68 Pulse Oximetry 93 L 94 L 09/22/18 17:09 09/22/18 20:00 09/22/18 21:04 Temperature 98.1 F Pulse Rate 100 H 114 H Respiratory Rate 18 18 Blood Pressure 137/85 Pulse Oximetry 95 95 09/22/18 21:05 09/23/18 00:00 09/23/18 03:34 Temperature 98.6 F Pulse Rate 96 H 93 H Respiratory Rate 16 17 Blood Pressure 140/83 Pulse Oximetry 95 95 09/23/18 04:00 09/23/18 09:20 Temperature 98.3 F Pulse Rate 92 H 94 H Respiratory Rate 16 14 Blood Pressure 127/72 Pulse Oximetry 94 L 95 Intake & Output 09/22/18 09/23/18 09/23/18 18:59 06:59 18:59 Intake Total 450 / 450 2600 / 2600 100 / 100 Output Total 300 / 300 1300 / 1300 Balance 150 / 150 1300 / 1300 100 / 100 Weight 71.3 kg Intake: IV 450 / 450 2480 / 2480 100 / 100 KCl Inj 30 MEQ In D5W Inj 1,000 2030 / 2030 ML @ 100 mls/hr IV.CONT . Q10H9M [facility] Rx#:[id number] Zosyn 4.5 GM Premix 4.5 gm In 200 / 200 200 / 200 100 / 100 100 ml @ 200 mls/hr IV.SIG Q6H [facility] Rx#:[id number] Vancomycin Inj 1,000 MG In NS 250 / 250 250 / 250 Inj 250 ML @ 250 mls/hr IV.SIG Q18H [facility] Rx#:[id number] Oral 120 / 120 Output: Urine 300 / 300 900 / 900 Gastric Drainage 400 / 400 Left Nare Nasogastric Tube 400 / 400 Other: Date of Last Bowel Movement 09/21/18 Narrative: GENERAL: NAD with NG tube in place SKIN: Warm and dry. HEAD: Atraumatic. Normocephalic. EYES: Pupils equal and round. No scleral icterus. No injection or drainage. ENT: No nasal bleeding or discharge. Mucous membranes pink and moist. NECK: Trachea midline. No JVD. CARDIOVASCULAR: Regular rate and rhythm. RESPIRATORY: No accessory muscle use. Clear to auscultation. Breath sounds equal bilaterally. GASTROINTESTINAL: Abdomen soft, non-tender, nondistended. Hepatic and splenic margins not palpable. Hypoactive bowel sounds MUSCULOSKELETAL: Extremities without clubbing, cyanosis, or edema. No obvious deformities. NEUROLOGICAL: Awake and alert. No obvious cranial nerve deficits. Motor grossly within normal limits. Five out of 5 muscle strength in the arms and legs. Normal speech. PSYCHIATRIC: Appropriate mood and affect; insight and judgment normal. Results Procedures completed during hospitalization: None Labs on day of discharge: Labs from last 24 hours 09/23/18 09/23/18 05:55 05:55 WBC 5.3 RBC 2.98 L Hgb 8.8 L Hct 25.7 L MCV 86.3 MCH 29.6 MCHC 34.3 RDW 13.0 Plt Count 300 MPV 7.2 Neut % (Auto) 80.1 H Lymph % (Auto) 10.7 [place] % (Auto) 7.2 Eos % (Auto) 1.7 Baso % (Auto) 0.3 Neut # (Auto) 4.2 Lymph # (Auto) 0.6 L [place] # (Auto) 0.4 Eos # (Auto) 0.1 Baso # (Auto) 0.0 WBC Differential . Differential Comment Auto diff final Sodium 139 Potassium 4.0 Chloride 105 Carbon Dioxide 27.0 Anion Gap 7 BUN 10 Creatinine 0.86 Estimated GFR 63 L Random Glucose 104 Calcium 8.2 L Phosphorus 2.6 Magnesium 1.9 Total Bilirubin 0.2 Direct Bilirubin 0.1 Indirect Bilirubin 0.1 AST 16 ALT 10 Alkaline Phosphatase 59 Total Protein 6.2 L Albumin 2.1 L Preliminary micro results at discharge 09/21/18 08:07 Aerobic Blood Culture - Preliminary Blood - Peripheral No growth in 2 days Anaerobic Blood Culture - Preliminary No growth in 2 days 09/21/18 06:40 Aerobic Blood Culture - Preliminary Blood - Peripheral No growth in 2 days Anaerobic Blood Culture - Preliminary No growth in 2 days - Impressions ITS Impressions Abdomen/Pelvis CT 09/17/18 14:15 CONCLUSION: Since the patient's F-18 FDG PET/CT from 12/2017 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 Abdomen Ultrasound 09/18/18 00:00 CONCLUSION: Small amount of ascites, most prominent in the right upper abdominal quadrant. Volume is probably adequate for diagnostic tap but insufficient for therapeutic aspiration. Chest X-Ray 09/21/18 05:05 CONCLUSION: Bilateral perihilar infiltrates and partially consolidative infiltrate in the left lower lobe. Abdomen X-Ray 09/21/18 06:36 CONCLUSION: Nonspecific abdomen appearance. Discharge Plan - Discharge Disposition Patient Disposition: [facility] Facility - Discharge Condition Condition: Critical - Discharge Order Discharge Orders: Discharge Order (Routine); Ordered 09/23/18 Ordered By: Nghia Cheung - Discharge Details Anticipated Discharge Date: 09/17/18 - Physicians Team Primary Care Provider: Angelica Stoner Attending Provider: Nghia Cheung Other Providers: Micheal Whaley MD ; Angelica Stoner MD ; Lloyd Desai MD
[2018-09-24] MEDS ORDERED: Pharmacy Ordered Lab Info OTHER ONE ×2 (08:45→14:45)
== END 2018-09-23 15:12 | disposition hospice, inpatient (51) ==
LOC: NEDA 13:42 → NEPE 13:42 → HCIN 20:46
PROVIDERS: ADMIT Hospitalist; ATTEND Hospitalist